=== PATIENT | male | born 1950 | race Caucasian/White ===

== ENCOUNTER 2019-02-18 00:14 | Emergency (ER) | payer BC, MEDICARE ==
[2019-02-18 00:26] VITALS: BP 170/69; PULSE 84
--- NOTE | 2019-02-18 01:09 | EDM.PDOC ---
ED HPI GENERAL MEDICAL PROBLEM - General Chief Complaint: General Stated Complaint: dizziness Time Seen by Provider: 02/18/19 00:26 Source of Information: Reports: Patient, Significant Other History Limitations: Reports: No Limitations - History of Present Illness INITIAL COMMENTS - FREE TEXT/NARRATIVE: Patient presents with what he describes as a swaying feeling. He's had no nausea, fever, injury, vision change, nystagmus, hearing change, ear ringing, chest pain, balance trouble or weakness. Turning his head doesn't trigger or worsen the feeling. This started about 1.5 hours ago (2300), shortly after returning home from a fishing trip to [place]. He spent two days on a fishing boat. The first day the water was very rough and they were out 8 hours. Today they got up at 0200 and spent 10 hours on the boat and then drove back home here to [place]. He has diabetes, CAD and history of A Fib. He takes Xarelto and ASA 81mg daily. - Related Data Allergies Allergy/AdvReac Type Severity Reaction Status Date / Time niacin Allergy Hives Verified 02/18/19 00:26 Home Meds: Home Meds Insulin Glarg,Human.Rec.Analog [Lantus Solostar] 46 units SQ BEDTIME 09/12/14 [ History] metFORMIN [Glucophage] 1,000 mg PO BID 09/12/14 [History] Rivaroxaban [Xarelto] 20 mg PO 1800 tablet 01/27/15 [Rx] Insulin Aspart [NovoLOG] 0 unit SUBCUT QIDACANDBED PRN 08/02/16 [History] Sulfamethoxazole/Trimethoprim [Bactrim 400-80 MG] 1 tab PO DAILY 08/02/16 [ History] Metoprolol Tartrate [Lopressor] 50 mg PO Q12HR 09/18/16 [History] atorvaSTATin [Lipitor] 40 mg PO DAILY 09/19/16 [History] Amitriptyline [Elavil] 25 mg PO BEDTIME 02/18/19 [History] Aspirin [Adult Low Dose Aspirin EC] 81 mg PO DAILY 02/18/19 [History] Finasteride 5 mg PO DAILY 02/18/19 [History] Hydrochlorothiazide 12.5 mg PO DAILY 02/18/19 [History] Lisinopril 5 mg PO DAILY 02/18/19 [History] Nitroglycerin 0.4 mg SL ASDIRECTED PRN 02/18/19 [History] Tamsulosin HCl 0.4 mg PO DAILY 02/18/19 [History] Past Medical History - Past Health History Medical/Surgical History: Denies Medical/Surgical History HEENT History: Reports: Hard of Hearing, Impaired Vision, Other (See Below) Other HEENT History: blind in right eye Cardiovascular History: Reports: Blood Clots/VTE/DVT, Bypass, High Cholesterol, Hypertension, [place] Other Cardiovascular History: CABGx3 on 08-30-16 Gastrointestinal History: Reports: Chronic Diarrhea, Colon Polyp Musculoskeletal History: Reports: Arthritis, Fracture Other Musculoskeletal History: left ankle fracture, right thumb fx, arthritis in knees Neurological History: Reports: Migraines, Neuropathy, Diabetic Endocrine/Metabolic History: Reports: Diabetes, Type II Dermatologic History: Reports: Other (See Below) Other Dermatologic History: 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 - Past Surgical History Cardiovascular Surgical History: Reports: Coronary Artery Bypass, Other (See Below) Other Cardiovascular Surgeries/Procedures: CABG twice GI Surgical History: Reports: Colonoscopy, Hernia, Abdominal Musculoskeletal Surgical History: Reports: None Social & Family History - Family History Family Medical History: Noncontributory Cardiac: Reports: Heart Failure - Caffeine Use Caffeine Use: Reports: Coffee, Tea - Living Situation & Occupation Living situation: Reports: Occupation: Employed ED ROS GENERAL - Review of Systems Review Of Systems: See Below Constitutional: Denies: Fever, Chills, Malaise, Weakness HEENT: Denies: Dental Pain, Ear Discharge, Ear Pain, Hearing Loss, Sinus Problem , Throat Pain, Vision Change Respiratory: Denies: Shortness of Breath, Cough Cardiovascular: Denies: Chest Pain, Lightheadedness, Syncope Endocrine: Reports: No Symptoms GI/Abdominal: Denies: Abdominal Pain, Constipation, Diarrhea, Nausea, Vomiting : Denies: Dysuria, Flank Pain Musculoskeletal: Denies: Neck Pain, Shoulder Pain, Arm Pain, Back Pain, Hand Pain Skin: Denies: Cyanosis, Jaundice, Mottled, Pallor, Diaphoresis Neurological: Denies: Confusion, Dizziness, Headache, Seizure, Syncope, Tingling , Tremors, Trouble Speaking, Difficulty Walking, Weakness, Change in Speech, Gait Disturbance Psychiatric: Denies: Agitation, Anxiety, Confusion ED EXAM, GENERAL - Physical Exam Exam: See Below Exam Limited By: No Limitations General Appearance: Alert, WD/WN, No Apparent Distress Eye Exam: Right Eye: Other (significant chronic visual loss), Bilateral Eye: EOMI, Normal Inspection (full visual jc), PERRL Ears: Normal External Exam, Normal Canal, Hearing Grossly Normal, Normal TMs Nose: Normal Inspection, No Blood Throat/Mouth: Normal Inspection, Normal Lips, Normal Voice, No Airway Compromise Head: Atraumatic, Normocephalic Neck: Normal Inspection, Supple, Non-Tender, Full Range of Motion Respiratory/Chest: No Respiratory Distress, Lungs Clear, Normal Breath Sounds Cardiovascular: Regular Rate, Rhythm (no A Fib now and patient says he only had it briefly without recurrence), No Murmur GI/Abdominal: Normal Bowel Sounds, Soft, Non-Tender, No Organomegaly Back Exam: Normal Inspection, Full Range of Motion. No: CVA Tenderness (L), CVA Tenderness (R) Extremities: Normal Inspection, Normal Range of Motion Neurological: Alert, Oriented, CN II-XII Intact, Normal Cognition, Normal Gait, No Motor/Sensory Deficits, Other (DixHall-Dar[place] test was completely negative; didn't provoke vertigo or nystagmus. Romberg was completely normal also. NIH stroke score is 0.) Psychiatric: Normal Affect, Normal Mood Skin Exam: Warm, Dry, Intact, Normal Color, No Rash Course - Vital Signs Last Recorded V/S: Last Vital Signs Temp 98 F 02/18/19 00:21 Pulse 84 02/18/19 00:21 Resp 20 02/18/19 00:21 BP 170/69 H 02/18/19 00:21 Pulse Ox 96 02/18/19 00:21 - Orders/Labs/Meds Labs: Laboratory Tests 02/18/19 Range/Units 00:41 POC Glucose 250 H (74-106) mg/dl - Re-Assessments/Exams Free Text/Narrative Re-Assessment/Exam: 02/18/19 01:17 Discussed findings and recommendations with patient and his . With the absence of any evidence of stroke or even true vertigo I feel quite confident this is due to the hours on the boat and water the last two days. Probably affected some by the lack of hardly any sleep last night as well. Patient discharged to home in stable condition. Departure - Departure Time of Disposition: 01:09 Disposition: Home, Self-Care 01 Condition: Good Clinical Impression: Motion sickness, initial encounter - Discharge Information Instructions: Motion Sickness, [id number] Additional Instructions: 1. Drink 8 cups of water daily. 2. Try to get caught up on sleep. 3. Follow up tomorrow with your PCP if this persists or worsens. 4. If worsening significantly or any signs of stroke as discussed return for recheck TAMMY.
== END 2019-02-18 01:15 | disposition home or self-care (01) ==
LOC: KA.ED 00:14
DX: T75.3XXA Motion sickness, initial encounter (principal); I10 Essential (primary) hypertension; E11.40 Type 2 diabetes mellitus with diabetic neuropathy, unspecified; M19.90 Unspecified osteoarthritis, unspecified site; I25.2 Old myocardial infarction; I25.10 Atherosclerotic heart disease of native coronary artery without angina pectoris; I48.91 Unspecified atrial fibrillation; Z86.718 Personal history of other venous thrombosis and embolism; Z95.1 Presence of aortocoronary bypass graft; Z79.899 Other long term (current) drug therapy; Z79.4 Long term (current) use of insulin
CPT/HCPCS: 82962; 99284

== ENCOUNTER 2019-04-15 16:00 | Emergency (ER) | payer BC, MEDICARE ==
[2019-04-15] MEDS ORDERED: Aspirin 81 MG Tab.Chew PO ONE (16:31)
[2019-04-15] MEDS ORDERED: Nitroglycerin 0.4 MG Tab.SL SL PRN (16:31)
--- NOTE | 2019-04-15 16:40 | EDM.PDOC ---
ED HPI GENERAL MEDICAL PROBLEM - General Chief Complaint: Chest Pain Time Seen by Provider: 04/15/19 16:23 Source of Information: Reports: Patient History Limitations: Reports: No Limitations - History of Present Illness INITIAL COMMENTS - FREE TEXT/NARRATIVE: Patient presents with mild left chest pressure that started a little bit last night but definitely noticed at 8:00 (8 hours ago) this morning and has been constant through the day. It has been steady through the day with no change related to rest or activity. 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 He had a 3-vessel CABG 2.5 years ago and thinks he had a VT at age 28 when he thinks he remembers feeling something like today. He never was checked at that time but has since been told he had an VT many years ago based on cardiac scar tissue. He had a cardiac stress test 2 weeks ago that was abnormal and he is scheduled to see his set up inspector on 05/05 for further evaluation including a likely angiogram. He has carried nitro for 15 years but has never used it. He went to his clinic about an hour ago to see if he should take his nitro and was told to come to ER. He denies any neck, jaw, arm pain; denies lightheadedness, sweating, nausea. - Related Data Allergies Allergy/AdvReac Type Severity Reaction Status Date / Time niacin Allergy Hives Verified 04/15/19 16:27 Home Meds: Home Meds Insulin Glarg,Human.Rec.Analog [Lantus Solostar] 36 units SQ BEDTIME 09/12/14 [ History] metFORMIN [Glucophage] 1,000 mg PO BID 09/12/14 [History] Rivaroxaban [Xarelto] 20 mg PO 1800 tablet 01/27/15 [Rx] Insulin Aspart [NovoLOG] 0 unit SUBCUT QIDACANDBED PRN 08/02/16 [History] Sulfamethoxazole/Trimethoprim [Bactrim 400-80 MG] 1 tab PO DAILY 08/02/16 [ History] Metoprolol Tartrate [Lopressor] 50 mg PO Q12HR 09/18/16 [History] atorvaSTATin [Lipitor] 40 mg PO DAILY 09/19/16 [History] Amitriptyline [Elavil] 25 mg PO BEDTIME 02/18/19 [History] Aspirin [Adult Low Dose Aspirin EC] 81 mg PO DAILY 02/18/19 [History] Finasteride 5 mg PO DAILY 02/18/19 [History] Hydrochlorothiazide 12.5 mg PO DAILY 02/18/19 [History] Lisinopril 5 mg PO DAILY 02/18/19 [History] Nitroglycerin 0.4 mg SL ASDIRECTED PRN 02/18/19 [History] Tamsulosin HCl 0.4 mg PO DAILY 02/18/19 [History] Past Medical History - Past Health History Medical/Surgical History: Denies Medical/Surgical History HEENT History: Reports: Hard of Hearing, Impaired Vision, Other (See Below) Other HEENT History: blind in right eye Cardiovascular History: Reports: Blood Clots/VTE/DVT, Bypass, High Cholesterol, Hypertension, [place] Other Cardiovascular History: CABGx3 on 08-30-16 Respiratory History: Reports: Sleep Apnea Gastrointestinal History: Reports: Chronic Diarrhea, Colon Polyp Musculoskeletal History: Reports: Arthritis, Fracture Other Musculoskeletal History: left ankle fracture, right thumb fx, arthritis in knees Neurological History: Reports: Migraines, Neuropathy, Diabetic Endocrine/Metabolic History: Reports: Diabetes, Type II, Obesity/BMI 30+ Dermatologic History: Reports: Other (See Below) Other Dermatologic History: 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 - Past Surgical History Cardiovascular Surgical History: Reports: Coronary Artery Bypass, Other (See Below) GI Surgical History: Reports: Colonoscopy, Hernia, Abdominal Musculoskeletal Surgical History: Reports: None Social & Family History - Family History Family Medical History: Noncontributory Cardiac: Reports: Heart Failure - Caffeine Use Caffeine Use: Reports: Coffee, Tea - Living Situation & Occupation Living situation: Reports: Occupation: Employed ED [facility] GENERAL - Review of Systems Review Of Systems: See Below Constitutional: Denies: Fever, Chills, Malaise, Weakness HEENT: Denies: Ear Pain, Throat Pain, Vision Change Respiratory: Reports: Cough (chronic related to his CPAP). Denies: Shortness of Breath Cardiovascular: Reports: Chest Pain ("pressure"), Blood Pressure Problem. Denies: Dyspnea on Exertion, Lightheadedness, Syncope Endocrine: Reports: No Symptoms GI/Abdominal: Denies: Abdominal Pain, Diarrhea, Nausea, Vomiting : Reports: No Symptoms Musculoskeletal: Denies: Neck Pain, Shoulder Pain, Arm Pain, Back Pain, Hand Pain, Leg Pain, Foot Pain Skin: Denies: Cyanosis, Jaundice, Mottled, Pallor, Diaphoresis Neurological: Reports: Tingling (intermittent tingling of upper extremities for months, related to neck problems). Denies: Confusion, Dizziness, Headache, Seizure, Syncope, Trouble Speaking, Difficulty Walking Psychiatric: Denies: Agitation, Anxiety, Confusion ED EXAM, GENERAL - Physical Exam Exam: See Below Exam Limited By: No Limitations General Appearance: Alert, WD/WN, No Apparent Distress Eye Exam: Bilateral Eye: EOMI, Normal Inspection, PERRL Ears: Normal External Exam, Hearing Grossly Normal Nose: Normal Inspection, No Blood Throat/Mouth: Normal Inspection, Normal Lips, Normal Voice, No Airway Compromise Head: Atraumatic, Normocephalic Neck: Normal Inspection, Supple, Non-Tender, Full Range of Motion. No: Carotid Bruit Respiratory/Chest: No Respiratory Distress, Lungs Clear, Normal Breath Sounds, No Accessory Muscle Use Cardiovascular: Normal Peripheral Pulses, Regular Rate, Rhythm, Systolic Murmur Peripheral Pulses: 2+: Carotid (L), Carotid (R), Radial (L), Radial (R), Posterior Tibial (L), Posterior Tibial (R) GI/Abdominal: Normal Bowel Sounds, Soft, Non-Tender, No Organomegaly, No Distention, No Abnormal Bruit Back Exam: Normal Inspection, Full Range of Motion. No: CVA Tenderness (L), CVA Tenderness (R) Extremities: Normal Range of Motion, Non-Tender Neurological: Alert, Oriented, Normal Cognition, No Motor/Sensory Deficits Psychiatric: Normal Affect, Normal Mood Skin Exam: Warm, Dry, Intact, Normal Color, No Rash Course - Vital Signs Last Recorded V/S: Last Vital Signs Temp 97.9 F 04/15/19 16:05 Pulse 96 04/15/19 16:45 Resp 18 04/15/19 16:05 BP 172/77 H 04/15/19 16:45 Pulse Ox 100 04/15/19 16:05 - Orders/Labs/Meds Orders: Active Orders 24 hr Category Date Time Status EKG Documentation Completion [RC] ASDIRECTED Care 04/15/19 16:11 Active CXR [Chest 1V Frontal] [CR] Stat Exams 04/15/19 16:11 Taken Nitroglycerin [Nitrostat] Med 04/15/19 16:31 Ordered 0.4 mg SL Q5M PRN EKG 12 Lead [EK] Routine Ther 04/15/19 16:11 Ordered Medication Orders Nitroglycerin (Nitrostat) 0.4 mg SL Q5M PRN PRN Reason: Chest Pain Last Admin: 04/15/19 16:36 Dose: 0.4 mg Labs: Laboratory Tests 04/15/19 04/15/19 Range/Units 16:20 16:20 WBC 5.50 (5.00-10.00) 10^3/uL RBC 4.35 L (4.50-6.00) 10^6/uL Hgb 13.8 (13.0-17.0) g/dL Hct 39.0 L (40.0-52.0) % MCV 89.7 (82.0-92.0) fL MCH 31.7 H (27.0-31.0) pg MCHC 35.4 (32.0-36.0) g/dL RDW 13.7 (11.5-14.5) % Plt Count 143 L (150-400) 10^3/uL MPV 9.1 (7.4-10.4) fL Immature Gran % (Auto) 0.0 (0.0-5.0) % Neut % (Auto) 61.2 (50.0-70.0) % Lymph % (Auto) 24.9 (20.0-40.0) % Irion % (Auto) 8.9 H (2.0-8.0) % Eos % (Auto) 4.5 H (1.0-3.0) % Baso % (Auto) 0.5 (0.0-1.0) % Immature Gran # (Auto) 0.00 (0.00-0.50) 10^3/uL Neut # (Auto) 3.36 (2.50-7.00) 10^3/uL Lymph # (Auto) 1.37 (1.00-4.00) 10^3/uL Irion # (Auto) 0.49 (0.10-0.80) 10^3/uL Eos # (Auto) 0.25 (0.10-0.30) 10^3/uL Baso # (Auto) 0.03 (0.00-0.10) 10^3/uL Sodium 142 (136-145) mmol/L Potassium 4.6 (3.3-5.3) mmol/L Chloride 104 (98-115) mmol/L Carbon Dioxide 28.8 (21.0-32.0) mmol/L Anion Gap 13.8 (5-15) mmol/L BUN 20 (6-25) mg/dL Creatinine 1.13 (0.51-1.17) mg/dL Est Cr Clr Drug Dosing 68.67 mL/min Estimated GFR (MDRD) > 60 mL/min Glucose 121 H (75 - 99) mg/dL Calcium 9.3 (8.7-10.3) mg/dL Troponin I 0.04 (0.00-0.070) ng/mL Meds: Medications Generic Name Dose Route Start Last Admin Trade Name Freq PRN Reason Stop Dose Admin Nitroglycerin 0.4 mg 04/15/19 16:31 04/15/19 16:36 Nitrostat SL 0.4 mg Q5M PRN Administration Chest Pain Discontinued Medications Generic Name Dose Route Start Last Admin Trade Name Freq PRN Reason Stop Dose Admin Aspirin 324 mg 04/15/19 16:31 04/15/19 16:35 Aspirin PO 04/15/19 16:32 324 mg ONETIME ONE Administration Labetalol HCl 20 mg 04/15/19 17:47 Normodyne IVPUSH 04/15/19 17:48 ONETIME ONE Protocol - Re-Assessments/Exams Free Text/Narrative Re-Assessment/Exam: 04/15/19 16:49 The chest pressure seemed a little better after a few minutes, prior to nitro but resolved completely after a single nitro. ASA 324 given also. 04/15/19 17:37 Trop is 0.04; EKG shows inferior ischemia and (apparently) new incomplete LBBB. Discussed with Aman Mccloud NP who reviewed [facility] chart showing lateral ischemia on the stress test two weeks ago. Patient is still pain/pressure free. Discussed case with Dr. Selby, hospitalist, at [facility] in [place], who accepted for transfer and angiogram now rather than waiting for May 05. Discussed findings and recommendations with patient and his , they are okay with this plan. 04/15/19 18:06 Ambulance here to transport patient who is stable at discharge. BP has responded to Labetalol and is now 183/73. Departure - Departure Time of Disposition: 17:42 Disposition: DC/Tfer to Acute Hospital 02 Reason for Transfer *Q: Primary PCI Indicated Condition: Good Clinical Impression: Unstable angina, History of coronary artery bypass graft x 3 Referrals: Kizzy Sotelo MD [Primary Care Provider] - Forms: ED Department Discharge - My Orders Last 24 Hours: My Active Orders 04/15/19 16:11 EKG Documentation Completion [RC] ASDIRECTED CXR [Chest 1V Frontal] [CR] Stat EKG 12 Lead [EK] Routine 04/15/19 16:31 Nitroglycerin [Nitrostat] 0.4 mg SL Q5M PRN - Assessment/Plan Last 24 Hours: My Active Orders 04/15/19 16:11 EKG Documentation Completion [RC] ASDIRECTED CXR [Chest 1V Frontal] [CR] Stat EKG 12 Lead [EK] Routine 04/15/19 16:31 Nitroglycerin [Nitrostat] 0.4 mg SL Q5M PRN
[2019-04-15 16:56] LABS: ANION GAP 13.8 mmol/L (5-15); CHLORIDE,CL 104 mmol/L (98-115); SODIUM,NA 142 mmol/L (136-145)
[2019-04-15] MEDS ORDERED: Labetalol 100 MG/20 ML MDV IVPUSH ONE (17:47)
[2019-04-15 18:50] VITALS: BP 166/77; PULSE 78
== END 2019-04-15 18:13 ==
LOC: KA.ED 16:00
DX: I20.0 Unstable angina (principal); I10 Essential (primary) hypertension; E78.00 Pure hypercholesterolemia, unspecified; E11.40 Type 2 diabetes mellitus with diabetic neuropathy, unspecified; I25.2 Old myocardial infarction; Z95.1 Presence of aortocoronary bypass graft; Z88.8 Allergy status to other drugs, medicaments and biological substances; Z79.4 Long term (current) use of insulin; Z79.899 Other long term (current) drug therapy; Z79.82 Long term (current) use of aspirin; Z86.718 Personal history of other venous thrombosis and embolism
CPT/HCPCS: 71045; 80048; 84484; 85025; 93005; 96374; 99285; A9270; J3490

== ENCOUNTER 2019-12-23 22:21 | Observation (INO) | payer BC ==
--- NOTE | 2019-12-23 23:02 | EDM.PDOC ---
ED HPI GENERAL MEDICAL PROBLEM - General Chief Complaint: General Stated Complaint: HTN, bradycardia Time Seen by Provider: 12/23/19 22:46 Source of Information: Reports: Patient History Limitations: Reports: No Limitations - History of Present Illness INITIAL COMMENTS - FREE TEXT/NARRATIVE: Patient is a 69-year-old gentleman who presents to the emergency department this evening via private vehicle with a complaint of high blood pressure and low heart rate. Patient states approximately 9 p.m. this evening, he noticed his pulse was in the 40s and took his blood pressure. Blood pressure was found to be high 190s systolic. He became concerned decided to present to the ER. Patient states that he underwent coronary artery bypass graft 3-1/2 years ago, and underwent cardiac stent procedure June 2019. Patient denies chest pain , shortness of breath, nausea, vomiting, diarrhea, fever, out of country travel , upper respiratory symptoms, abdominal pain, excessive lower extremity edema, calf pain, or change in medication. Onset: Today Onset Time: 21:00 Duration: Minutes: Quality: Reports: Other (Denies pain) Severity: Mild Improves with: Reports: None Worsens with: Reports: None Associated Symptoms: Reports: No Other Symptoms. Denies: Chest Pain, Cough, Diaphoresis, Fever/Chills, Headaches, Nausea/Vomiting, Shortness of Breath, Syncope - Related Data Allergies Allergy/AdvReac Type Severity Reaction Status Date / Time niacin Allergy Hives Verified 12/23/19 22:42 Home Meds: Home Meds Insulin Glarg,Human.Rec.Analog [Lantus Solostar] 46 units SQ BEDTIME 09/12/14 [ History] metFORMIN [Glucophage] 1,000 mg PO BID 09/12/14 [History] Rivaroxaban [Xarelto] 20 mg PO 1800 tablet 01/27/15 [Rx] Insulin Aspart [NovoLOG] 0 unit SUBCUT QIDACANDBED PRN 08/02/16 [History] Sulfamethoxazole/Trimethoprim [Bactrim 400-80 MG] 1 tab PO DAILY 08/02/16 [ History] atorvaSTATin [Lipitor] 40 mg PO DAILY 09/19/16 [History] Amitriptyline [Elavil] 25 mg PO BEDTIME 02/18/19 [History] Finasteride 5 mg PO DAILY 02/18/19 [History] Nitroglycerin 0.4 mg SL ASDIRECTED PRN 02/18/19 [History] Tamsulosin HCl 0.4 mg PO DAILY 02/18/19 [History] Acetaminophen 500 mg PO Q4H PRN 04/15/19 [History] Liraglutide [Victoza 3-Juan C] 1.8 mg SUBCUT DAILY 04/15/19 [History] Clindamycin Phosphate [Cleocin T 1% Lotion] 1 applic TOP BID PRN 12/23/19 [ History] Clopidogrel Bisulfate [Clopidogrel] 75 mg PO DAILY 12/23/19 [History] Furosemide 20 mg PO DAILY 12/23/19 [History] Losartan Potassium 100 mg PO DAILY 12/23/19 [History] Potassium Chloride 10 meq PO ASDIRECTED 12/23/19 [History] Vitamin B Complex 1 cap PO DAILY 12/23/19 [History] carvediloL [Carvedilol] 25 mg PO BID 12/23/19 [History] hydroCHLOROthiazide [Hydrochlorothiazide] 25 mg PO DAILY 12/23/19 [History] Past Medical History - Past Health History Medical/Surgical History: Denies Medical/Surgical History HEENT History: Reports: Hard of Hearing, Impaired Vision, Other (See Below) Other HEENT History: blind in right eye Cardiovascular History: Reports: Blood Clots/VTE/DVT, Bypass, High Cholesterol, Hypertension, [place] Other Cardiovascular History: CABGx3 on 08-30-16 Respiratory History: Reports: Sleep Apnea Gastrointestinal History: Reports: Chronic Diarrhea, Colon Polyp Musculoskeletal History: Reports: Arthritis, Fracture Other Musculoskeletal History: left ankle fracture, right thumb fx, arthritis in knees Neurological History: Reports: Migraines, Neuropathy, Diabetic Endocrine/Metabolic History: Reports: Diabetes, Type II, Obesity/BMI 30+ Dermatologic History: Reports: Other (See Below) Other Dermatologic History: 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 - Past Surgical History Cardiovascular Surgical History: Reports: Coronary Artery Bypass, Other (See Below) GI Surgical History: Reports: Colonoscopy, Hernia, Abdominal Musculoskeletal Surgical History: Reports: None Social & Family History - Family History Family Medical History: Noncontributory Cardiac: Reports: Heart Failure - Caffeine Use Caffeine Use: Reports: Coffee, Tea - Living Situation & Occupation Living situation: Reports: Occupation: Employed ED ROS GENERAL - Review of Systems Review Of Systems: Comprehensive ROS is negative, except as noted in HPI. Constitutional: Reports: No Symptoms HEENT: Reports: No Symptoms Respiratory: Reports: No Symptoms Cardiovascular: Reports: Blood Pressure Problem, Other (Slow heart rate) Endocrine: Reports: No Symptoms GI/Abdominal: Reports: No Symptoms : Reports: No Symptoms Musculoskeletal: Reports: No Symptoms Skin: Reports: No Symptoms Neurological: Reports: No Symptoms Psychiatric: Reports: No Symptoms Hematologic/Lymphatic: Reports: No Symptoms Immunologic: Reports: No Symptoms ED EXAM, GENERAL - Physical Exam Exam: See Below Exam Limited By: No Limitations General Appearance: Alert, WD/WN, No Apparent Distress Eye Exam: Bilateral Eye: Normal Inspection Nose: Normal Inspection, No Blood Throat/Mouth: Normal Inspection, Normal Oropharynx, No Airway Compromise Head: Atraumatic, Normocephalic Neck: Normal Inspection Respiratory/Chest: No Respiratory Distress, Lungs Clear, Normal Breath Sounds, No Accessory Muscle Use, Chest Non-Tender Cardiovascular: Normal Peripheral Pulses, Regular Rate, Rhythm, Systolic Murmur GI/Abdominal: Normal Bowel Sounds, Soft, Non-Tender, No Abnormal Bruit Back Exam: Normal Inspection. No: CVA Tenderness (L), CVA Tenderness (R) Extremities: Normal Inspection, Pedal Edema (2+ bilateral), Other (No calf edema , palpable cord, or discomfort) Neurological: Alert, Oriented, CN II-XII Intact, Normal Cognition Psychiatric: Normal Affect, Normal Mood Skin Exam: Warm, Dry, Intact, No Rash EKG INTERPRETATION EKG Date: 12/23/19 Time: 22:50 Rhythm: Other (Second degree AV block) Rate (Beats/Min): 46 [place]: Normal P-Wave: Present QRS: Normal ST-T: Normal QT: Normal Course - Orders/Labs/Meds Orders: Active Orders 24 hr Category Date Time Status EKG Documentation Completion [RC] ASDIRECTED Care 12/23/19 22:52 Ordered Chest 1V Frontal [CR] Stat Exams 12/23/19 22:49 Ordered CBC WITH AUTO DIFF [HEME] Stat Lab 12/23/19 22:49 Ordered COMPREHENSIVE METABOLIC PN,CMP [CHEM] Stat Lab 12/23/19 22:49 Ordered INR,PT,PROTHROMBIN TIME [COAG] Stat Lab 12/23/19 22:49 Ordered PTT,PARTIAL THROMBOPLSTIN TIME [COAG] Stat Lab 12/23/19 22:49 Ordered TROPONIN I [CHEM] Stat Lab 12/23/19 22:49 Ordered EKG 12 Lead [EK] Stat Ther 12/23/19 22:52 Ordered - Re-Assessments/Exams Free Text/Narrative Re-Assessment/Exam: 12/24/19 00:08 Patient afebrile, nontoxic appearing. Heart rate 46, BP 167/49. Patient denies chest pain, shortness of breath. Discussed case with Dr. Butt, cardiology at [facility]. Recommendation was for admitting patient observation because the patient is asymptomatic, and if patient remains asymptomatic would have follow-up electrophysiology testing. If patient becomes symptomatic, then it may be need for transfer at that time. Also discussed case with Daina dillard, [place] provider. She will accept patient for observation and follow. Departure - Departure Time of Disposition: 00:12 Disposition: Refer to Observation Condition: Fair Clinical Impression: Bradycardia, Second degree AV block - Discharge Information Referrals: Kizzy Sotelo MD [Primary Care Provider] - - My Orders Last 24 Hours: My Active Orders 12/23/19 22:49 Chest 1V Frontal [CR] Stat CBC WITH AUTO DIFF [HEME] Stat COMPREHENSIVE METABOLIC PN,CMP [CHEM] Stat INR,PT,PROTHROMBIN TIME [COAG] Stat PTT,PARTIAL THROMBOPLSTIN TIME [COAG] Stat TROPONIN I [CHEM] Stat 12/23/19 22:52 EKG Documentation Completion [RC] ASDIRECTED EKG 12 Lead [EK] Stat - Assessment/Plan Last 24 Hours: My Active Orders 12/23/19 22:49 Chest 1V Frontal [CR] Stat CBC WITH AUTO DIFF [HEME] Stat COMPREHENSIVE METABOLIC PN,CMP [CHEM] Stat INR,PT,PROTHROMBIN TIME [COAG] Stat PTT,PARTIAL THROMBOPLSTIN TIME [COAG] Stat TROPONIN I [CHEM] Stat 12/23/19 22:52 EKG Documentation Completion [RC] ASDIRECTED EKG 12 Lead [EK] Stat Assessment:: Bradycardia Plan: Admitted for observation
[2019-12-23 23:18] LABS: PTT,PARTIAL THROMBOPLSTIN TIME 31.6 SEC (23.1-31.3)
[2019-12-23 23:25] LABS: ANION GAP 14.2 mmol/L (5-15)
[2019-12-24] MEDS ORDERED: Atropine 0.1 MG/ML 10 ML Syringe IVPUSH PRN (00:30)
[2019-12-24] MEDS ORDERED: Nitroglycerin 0.4 MG Tab.SL SL PRN (00:30)
[2019-12-24] MEDS ORDERED: EPINEPHrine 1:10,000 1 MG/10 ML Syringe IVPUSH PRN (00:30)
[2019-12-24] MEDS ORDERED: Lidocaine 2% 100 MG/5 ML Syringe IVPUSH PRN (00:30)
--- NOTE | 2019-12-24 07:28 | CR ---
[id number] RAD/RAD Chest PA or AP 1V EXAM: SINGLE VIEW CHEST. INDICATION: HYPERTENSION COMPARISON: CORRELATION IS MADE WITH 2018 FINDINGS: The lungs are clear The cardiomediastinal contour is stable Median sternotomy sutures are seen IMPRESSION: NO PNEUMONIA OR EDEMA Sixto Mansfield MD 12/24/19 0789 Thank you for allowing us to participate in the care of your patient.
[2019-12-24] MEDS ORDERED: Finasteride 5 MG Tab PO SCH (11:15)
[2019-12-24] MEDS ORDERED: Furosemide 20 MG Tab PO SCH (11:15)
[2019-12-24 11:25] VITALS: BP 165/60; PULSE 40
[2019-12-24] MEDS ORDERED: Clopidogrel 75 MG Tab - PTOM PO SCH (11:30)
--- NOTE | 2019-12-24 11:38 | PCM.HP.2 ---
H&P History of Present Illness - General Date of Service: 12/24/19 Admit Problem/Dx: Admission Diagnosis/Problem Admission Diagnosis/Problem Bradycardia - Related Data Allergies/Adverse Reactions: Allergies Allergy/AdvReac Type Severity Reaction Status Date / Time niacin Allergy Hives Verified 12/23/19 22:42 Home Medications: Home Meds Insulin Glarg,Human.Rec.Analog [Lantus Solostar] 46 units SQ BEDTIME 09/12/14 [ History] metFORMIN [Glucophage] 1,000 mg PO BID 09/12/14 [History] Insulin Aspart [NovoLOG] 0 unit SUBCUT QIDACANDBED PRN 08/02/16 [History] atorvaSTATin [Lipitor] 80 mg PO DAILY 09/19/16 [History] Amitriptyline [Elavil] 25 mg PO BEDTIME 02/18/19 [History] Finasteride 5 mg PO DAILY 02/18/19 [History] Nitroglycerin 0.4 mg SL ASDIRECTED PRN 02/18/19 [History] Tamsulosin HCl 0.4 mg PO DAILY 02/18/19 [History] Acetaminophen 500 mg PO Q4H PRN 04/15/19 [History] Liraglutide [Victoza] 1.8 mg SUBCUT DAILY 04/15/19 [History] Clindamycin Phosphate [Cleocin T 1% Lotion] 1 applic TOP BID PRN 12/23/19 [ History] Clopidogrel Bisulfate [Clopidogrel] 75 mg PO DAILY 12/23/19 [History] Furosemide 20 mg PO DAILY 12/23/19 [History] Losartan Potassium 100 mg PO DAILY 12/23/19 [History] Potassium Chloride 10 meq PO ASDIRECTED 12/23/19 [History] Vitamin B Complex 1 cap PO DAILY 12/23/19 [History] hydroCHLOROthiazide [Hydrochlorothiazide] 25 mg PO DAILY 12/23/19 [History] Rivaroxaban [Xarelto] 20 mg PO DAILY 12/24/19 [History] Sulfamethoxazole/Trimethoprim [Bactrim Ds Tablet] 1 tab PO DAILY 12/24/19 [ History] Urea/Hydrophilic Cream [Betamide] 1 applic TOP BID PRN 12/24/19 [History] carvediloL [Carvedilol] 12.5 mg PO BID #1 12/24/19 [Rx] Past Medical History - Past Health History Medical/Surgical History: Denies Medical/Surgical History HEENT History: Reports: Hard of Hearing, Impaired Vision, Other (See Below) Other HEENT History: blind in right eye Cardiovascular History: Reports: Blood Clots/VTE/DVT, Bypass, High Cholesterol, Hypertension, [place], Stents Other Cardiovascular History: CABGx3 on 08-30-16. stents placed April 2019 Respiratory History: Reports: Sleep Apnea Other Respiratory History: uses CPAP Gastrointestinal History: Reports: Chronic Diarrhea, Colon Polyp Musculoskeletal History: Reports: Arthritis, Fracture Other Musculoskeletal History: left ankle fracture, right thumb fx, arthritis in knees Neurological History: Reports: Migraines, Neuropathy, Diabetic Other Neuro History: 12-23-19: states has a headache every day since March 2019 , PCP aware Endocrine/Metabolic History: Reports: Diabetes, Type II, Obesity/BMI 30+ Dermatologic History: Reports: Other (See Below) Other Dermatologic History: 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 - Past Surgical History Cardiovascular Surgical History: Reports: Coronary Artery Bypass, Other (See Below) GI Surgical History: Reports: Colonoscopy, Hernia, Abdominal Musculoskeletal Surgical History: Reports: None Social & Family History - Family History Family Medical History: Noncontributory Cardiac: Reports: Heart Failure - Tobacco Use Smoking Status *Q: Never Smoker - Caffeine Use Caffeine Use: Reports: Coffee, Tea Other Caffeine Use: diet soda - Alcohol Use Days Per Week of Alcohol Use: 0 - Recreational Drug Use Recreational Drug Use: No - Living Situation & Occupation Living situation: Reports: Occupation: Employed H&P Review of Systems - Review of Systems: Review Of Systems: See Below General: Reports: No Symptoms HEENT: Reports: No Symptoms Pulmonary: Denies: Shortness of Breath, Wheezing, Pleuritic Chest Pain, Cough, Sputum Cardiovascular: Reports: No Symptoms Gastrointestinal: Reports: No Symptoms Genitourinary: Reports: No Symptoms Musculoskeletal: Reports: No Symptoms Skin: Reports: Dryness Psychiatric: Denies: Agitation Neurological: Reports: No Symptoms Hematologic/Lymphatic: Reports: Easy Bleeding, Easy Bruising Exam - Exam Exam: See Below - Vital Signs Vital Signs: Last Vital Signs Temp 98.2 F 12/24/19 11:00 Pulse 40 L 12/24/19 11:00 Resp 24 H 12/24/19 11:00 BP 165/60 H 12/24/19 11:00 Pulse Ox 97 12/24/19 11:00 Weight: 291 lb 4 oz - Exam Quality Assessment: DVT Prophylaxis. No: Supplemental Oxygen General: Alert, Oriented, 4 HEENT: PERRLA, Hearing Intact, Mucosa Moist & [place], Nares Patent, Normal Nasal Septum, Posterior Pharynx Clear, Conjunctiva Clear, EOMI, EACs Clear, TMs Clear Neck: Supple, Trachea Midline, 2 Lungs: Clear to Auscultation, Normal Respiratory Effort Cardiovascular: Regular Rhythm, Normal S1, Normal S2, Bradycardia. No: Irregular Rhythm, Systolic Murmur, Diastolic Murmur GI/Abdominal Exam: Other (abdominal habitus--large) (Male) Exam: Deferred Rectal (Males) Exam: Deferred Back Exam: No: CVA Tenderness (L), CVA Tenderness (R) Extremities: No: Pedal Edema Skin: Other ([place] lower extremities dryness) Neurological: Cranial Nerves Intact, Reflexes Equal Bilateral Neuro Extensive - Mental Status: Alert, Oriented x3, Normal Mood/Affect, Normal Cognition Neuro Extensive - Motor, Sensory, Reflexes: CN II-XII Intact, Normal Gait, Normal Reflexes Psychiatric: Alert, Normal Affect. No: Anxious - Patient Data Lab Results Last 24 hrs: Laboratory Results - last 24 hr 12/23/19 12/23/19 12/23/19 Range/Units 22:50 22:50 22:50 WBC 6.36 (5.00-10.00) 10^3/uL RBC 3.78 L (4.50-6.00) 10^6/uL Hgb 12.0 L D (13.0-17.0) g/dL Hct 34.5 L (40.0-52.0) % MCV 91.3 (82.0-92.0) fL MCH 31.7 H (27.0-31.0) pg MCHC 34.8 (32.0-36.0) g/dL RDW 13.4 (11.5-14.5) % Plt Count 155 (150-400) 10^3/uL MPV 9.3 (7.4-10.4) fL Immature Gran % (Auto) 0.2 (0.0-5.0) % Neut % (Auto) 57.7 (50.0-70.0) % Lymph % (Auto) 27.4 (20.0-40.0) % [place] % (Auto) 9.6 H (2.0-8.0) % Eos % (Auto) 4.2 H (1.0-3.0) % Baso % (Auto) 0.9 (0.0-1.0) % Neut # (Auto) 3.67 (2.50-7.00) 10^3/uL Lymph # (Auto) 1.74 (1.00-4.00) 10^3/uL Wilson # (Auto) 0.61 (0.10-0.80) 10^3/uL Eos # (Auto) 0.27 (0.10-0.30) 10^3/uL Baso # (Auto) 0.06 (0.00-0.10) 10^3/uL Immature Gran # (Auto) 0.01 (0.00-0.50) 10^3/uL PT 10.6 (8.9-11.4) SEC INR 1.0 (0.9-1.1) APTT 31.6 H (23.1-31.3) SEC Sodium 142 (136-145) mmol/L Potassium 4.1 (3.3-5.3) mmol/L Chloride 107 (98-115) mmol/L Carbon Dioxide 24.9 (21.0-32.0) mmol/L Anion Gap 14.2 (5-15) mmol/L BUN 30 H (6-25) mg/dL Creatinine 1.44 H (0.51-1.17) mg/dL Est Cr Clr Drug Dosing 56.29 mL/min Estimated GFR (MDRD) 49 mL/min Glucose 203 H (75 - 99) mg/dL POC Glucose (74-106) mg/dl Calcium 9.1 (8.7-10.3) mg/dL Total Bilirubin 0.4 (0.2-1.0) mg/dL AST 17 (15-37) U/L ALT 29 (12-78) U/L Alkaline Phosphatase 70 (46-116) IU/L Troponin I 0.06 (0.00-0.070) ng/mL B-Natriuretic Peptide (0-100) pg/mL Total Protein 6.8 (6.4-8.2) g/dL Albumin 3.44 (3.00-4.80) g/dL 12/23/19 12/24/19 Range/Units 22:55 08:09 WBC (5.00-10.00) 10^3/uL RBC (4.50-6.00) 10^6/uL Hgb (13.0-17.0) g/dL Hct (40.0-52.0) % MCV (82.0-92.0) fL MCH (27.0-31.0) pg MCHC (32.0-36.0) g/dL RDW (11.5-14.5) % Plt Count (150-400) 10^3/uL MPV (7.4-10.4) fL Immature Gran % (Auto) (0.0-5.0) % Neut % (Auto) (50.0-70.0) % Lymph % (Auto) (20.0-40.0) % [place] % (Auto) (2.0-8.0) % Eos % (Auto) (1.0-3.0) % Baso % (Auto) (0.0-1.0) % Neut # (Auto) (2.50-7.00) 10^3/uL Lymph # (Auto) (1.00-4.00) 10^3/uL Wilson # (Auto) (0.10-0.80) 10^3/uL Eos # (Auto) (0.10-0.30) 10^3/uL Baso # (Auto) (0.00-0.10) 10^3/uL Immature Gran # (Auto) (0.00-0.50) 10^3/uL PT (8.9-11.4) SEC INR (0.9-1.1) APTT (23.1-31.3) SEC Sodium (136-145) mmol/L Potassium (3.3-5.3) mmol/L Chloride (98-115) mmol/L Carbon Dioxide (21.0-32.0) mmol/L Anion Gap (5-15) mmol/L BUN (6-25) mg/dL Creatinine (0.51-1.17) mg/dL Est Cr Clr Drug Dosing mL/min Estimated GFR (MDRD) mL/min Glucose (75 - 99) mg/dL POC Glucose 180 H (74-106) mg/dl Calcium (8.7-10.3) mg/dL Total Bilirubin (0.2-1.0) mg/dL AST (15-37) U/L ALT (12-78) U/L Alkaline Phosphatase (46-116) IU/L Troponin I (0.00-0.070) ng/mL B-Natriuretic Peptide 206 H (0-100) pg/mL Total Protein (6.4-8.2) g/dL Albumin (3.00-4.80) g/dL Result Diagrams: 12/23/19 22:50 12/23/19 22:50 Sepsis Event Note - Evaluation Sepsis Screening Result: No Definite Risk - Focused Exam Vital Signs: Vital Signs Temp Pulse Pulse Resp BP BP Pulse Ox 12/24/19 11:00 98.2 F 40 L 24 H 165/60 H 97 12/24/19 06:54 98.2 F 41 L 16 177/62 H 96 12/24/19 03:05 97.9 F 41 L 16 156/55 H 95 12/24/19 00:20 98.2 F 43 L 20 158/60 H 97 12/24/19 00:15 44 L 19 170/43 H 96 12/24/19 00:13 12/24/19 00:00 98.6 F 62 23 H 167/44 H 95 12/23/19 23:45 44 L 21 H 157/42 H 94 L Pulse Ox 12/24/19 11:00 12/24/19 06:54 12/24/19 03:05 12/24/19 00:20 12/24/19 00:15 12/24/19 00:13 97 12/24/19 00:00 12/23/19 23:45 Date Exam was Performed: 12/24/19 Time Exam was Performed: 11:56 Problem List Initiated/Reviewed/Updated: Yes Orders Last 24hrs: Active Orders 24 hr Category Date Time Status Patient Status [ADT] Routine ADT 12/24/19 00:13 Active Blood Glucose Check, Bedside [RC] QIDACANDBED Care 12/24/19 07:30 Active EKG Documentation Completion [RC] ASDIRECTED Care 12/23/19 22:52 Active Oxygen Therapy [RC] PRN Care 12/24/19 00:13 Active Ready for Discharge [RC] PER UNIT ROUTINE Care 12/24/19 11:31 Active VTE/DVT Education [RC] PER UNIT ROUTINE Care 12/24/19 00:13 Active Vital Signs [RC] 0300,0700,1100,1500,1900,2300 Care 12/24/19 00:13 Active ADA Diabetic [[place] [employer] Diet] [DIET Diet 12/24/19 Lunch Active ] Heart Healthy Diet [DIET] Diet 12/24/19 Breakfast Active Amitriptyline [Elavil] Med 12/24/19 21:00 Ordered 25 mg PO BEDTIME Atropine [Atropine 0.1 MG/ML] Med 12/24/19 00:30 Active See Dose Instructions IVPUSH ASDIRECTED PRN Clopidogrel [Plavix] Med 12/24/19 11:30 Active 75 mg PO DAILY EPINEPHrine [EPINEPHrine 1:10,000] Med 12/24/19 00:30 Active 1 mg IVPUSH ASDIRECTED PRN Finasteride [Proscar] Med 12/24/19 11:15 Ordered 5 mg PO DAILY Furosemide [Lasix] Med 12/24/19 11:15 Ordered 20 mg PO DAILY Lidocaine 2% [Xylocaine 2%] Med 12/24/19 00:30 Active See Dose Instructions IVPUSH ASDIRECTED PRN Nitroglycerin [Nitrostat] Med 12/24/19 00:30 Active 0.4 mg SL ASDIRECTED PRN atorvaSTATin [Lipitor] Med 12/25/19 09:00 Ordered 80 mg PO DAILY Resuscitation Status Routine Resus Stat 12/24/19 00:13 Ordered Rhythm Strip [CV] Routine Ther 12/24/19 11:00 Ordered Medication Orders Amitriptyline HCl (Elavil) 25 mg PO BEDTIME SILVIA Atorvastatin Calcium (Lipitor) 80 mg PO DAILY SILVIA Atropine Sulfate (Atropine 0.1 Mg/Ml) 0 mg IVPUSH ASDIRECTED PRN PRN Reason: Heart. Clopidogrel Bisulfate (Plavix) 75 mg PO DAILY SILVIA Epinephrine HCl (Epinephrine 1:10,000) 1 mg IVPUSH ASDIRECTED PRN PRN Reason: Heart. Finasteride (Proscar) 5 mg PO DAILY SILVIA Furosemide (Lasix) 20 mg PO DAILY SILVIA Lidocaine HCl (Xylocaine 2%) 0 mg IVPUSH ASDIRECTED PRN PRN Reason: Heart. Nitroglycerin (Nitrostat) 0.4 mg SL ASDIRECTED PRN PRN Reason: Heart. Assessment/Plan Comment:: Please use this as a combined history and physical and discharge summary as patient was discharged on September 25 same day I saw the patient. History of present illness 69-year-old gentleman who presents to the emergency department this evening via private vehicle with a complaint of high blood pressure and low heart rate. Patient states approximately 9 p.m. this evening, he noticed his pulse was in the 40s and took his blood pressure. Blood pressure was found to be high 190s systolic. He became concerned decided to present to the ER. Patient states that he underwent coronary artery bypass graft 3-1/2 years ago, and underwent cardiac stent procedure June 2019. Patient denies chest pain, shortness of breath, nausea, vomiting, diarrhea, fever, out of country travel, upper respiratory symptoms, abdominal pain, excessive lower extremity edema, calf pain , or change in medication. ED work-up/findings EKG sinus rhythm with second-degree AV block, cannot rule out anterior infarct age undetermined (I review independently --doubtful second-degree block Hospital course Quite uneventful other than sinus bradycardia 25 during the middle night, awoken by nurses patient completely asymptomatic with good blood pressures. No chest pain no shortness of breath no dizziness on ambulation. 30-sec bedside rhythm strip/EKG performed to discharge and I did not see evidence of second- degree heart block. Rate 45-48 Medication changes/adjustments upon discharge Reduce Coreg by 50% to 12.5 mg p.o. twice daily Continue on all other medications Discharge instructions --I reduced your blood pressure medicine Coreg to 12-1/2 mg twice a day --Monitor your heart rate and if low AND you become dizzy or chest pain or any symptoms notify the hospital --I will see you in the clinic next week. --Important that you wear your CPAP all the time as this could have caused your heart rate to go so low in the middle of the night Recommendations on follow-up --We will need Edwin stress test --Consider non rate-lowering medication --EP referral - Mortality Measure Prognosis:: Good
[2019-12-24] MEDS ORDERED: Amitriptyline 25 MG Tab PO SCH (21:00)
[2019-12-25] MEDS ORDERED: atorvaSTATin 40 MG Tab PO SCH (09:00)
== END 2019-12-24 12:30 | disposition home or self-care (01) ==
LOC: KA.ED 22:21 → KA.MS 12-24 00:13 → UNDOADMOB 12-24 00:56
PROVIDERS: ADMIT Physician Assistant Surgical; ATTEND Physician Assistant Medical
DX: R00.1 Bradycardia, unspecified (principal); E78.00 Pure hypercholesterolemia, unspecified; I10 Essential (primary) hypertension; E11.40 Type 2 diabetes mellitus with diabetic neuropathy, unspecified; E66.9 Obesity, unspecified; Z79.4 Long term (current) use of insulin; Z91.048 Other nonmedicinal substance allergy status; Z68.36 Body mass index [BMI] 36.0-36.9, adult; Z79.899 Other long term (current) drug therapy
CPT/HCPCS: 36415; 71045; 80053; 82962; 83880; 84484; 85025; 85610; 85730; 93005; 93041; 99285-25; G0378

== ENCOUNTER 2020-11-08 11:00 | Observation (INO) | payer BC ==
[2020-11-08] MEDS ORDERED: Atropine 0.1 MG/ML 10 ML Syringe IVPUSH PRN (11:21)
[2020-11-08] MEDS ORDERED: EPINEPHrine 1:10,000 1 MG/10 ML Syringe IVPUSH PRN (11:21)
[2020-11-08] MEDS ORDERED: Nitroglycerin 0.4 MG Tab.SL SL PRN ×2 (11:21→14:40)
[2020-11-08] MEDS ORDERED: Lidocaine 2% 100 MG/5 ML Syringe IVPUSH PRN (11:21)
[2020-11-08] MEDS ORDERED: Sodium Chloride 0.9% 10 ML Syringe FLUSH PRN (11:25)
[2020-11-08] MEDS ORDERED: Sodium Chloride 0.9% 1,000 ML IV ONE (11:39)
[2020-11-08] MEDS ORDERED: Sodium Chloride 0.9% 500 ML IV SCH (11:45)
--- NOTE | 2020-11-08 13:54 | CR ---
[id number] RAD/RAD Chest PA or AP 1V EXAM: SINGLE VIEW CHEST. INDICATION: SHORTNESS OF BREATH COMPARISON: CORRELATION IS MADE WITH DECEMBER 24, 2019 FINDINGS: The lungs are clear The cardiomediastinal contour is stable IMPRESSION: NO PNEUMONIA OR EDEMA Sixto Mansfield MD 11/08/20 4940 Thank you for allowing us to participate in the care of your patient.
[2020-11-08] MEDS ORDERED: Acetaminophen 500 MG Tab PO PRN (14:40)
[2020-11-08] MEDS ORDERED: 50% Dextrose in Water 50 ML Syringe IV PRN ×2 (14:44→20:07)
[2020-11-08] MEDS ORDERED: Glucagon,Human Recombinant 1 MG Vial IM PRN ×2 (14:44→20:07)
[2020-11-08] MEDS: Carvedilol 12.5 MG Tab PO SCH (18:00)
[2020-11-08] MEDS: Omeprazole 20 MG Cap.CR PO SCH (18:00)
[2020-11-08] MEDS: INSULIN ASPART 100 UNIT/ML SUBCUT SCH ×2 (18:08→21:13)
[2020-11-08] MEDS: Sodium Chloride 0.9% 1,000 ML IV SCH (21:09)
[2020-11-08] MEDS: Amitriptyline 25 MG Tab PO SCH (21:09)
[2020-11-08] MEDS: [UNRECOGNIZED DRUG - OTHER] SUBCUT SCH (21:16)
[2020-11-09] MEDS: Sodium Chloride 0.9% 1,000 ML IV SCH ×2 (07:08→20:49)
[2020-11-09] MEDS: Omeprazole 20 MG Cap.CR PO SCH ×2 (07:33→17:37)
[2020-11-09 07:56] LABS: ANION GAP 14.4 mmol/L (5-15)
[2020-11-09] MEDS: atorvaSTATin 80 MG Tab PO SCH (08:14)
[2020-11-09] MEDS: Sulfamethoxazole/Trimethoprim 800-160 MG Tab PO SCH (08:15)
[2020-11-09] MEDS: Finasteride 5 MG Tab PO SCH (08:15)
[2020-11-09] MEDS: Vitamin B Complex Tab PO SCH (08:15)
[2020-11-09] MEDS: Carvedilol 12.5 MG Tab PO SCH ×2 (08:16→18:04)
[2020-11-09] MEDS: Liraglutide (rDNA Origin) 0.6 MG/0.1 ML 3 ML Pen SUBCUT SCH (08:17)
[2020-11-09] MEDS: INSULIN ASPART 100 UNIT/ML SUBCUT SCH ×2 (08:19→12:04)
[2020-11-09] MEDS ORDERED: Insulin Glargine,Human Rec. Analog 100 Units/ML 3 ML Pen SUBCUT SCH (09:00)
[2020-11-09] MEDS ORDERED: Sodium Chloride 0.9% 100 ML IV SCH (11:30)
[2020-11-09] MEDS ORDERED: Glucagon,Human Recombinant 1 MG Vial IM PRN (12:12)
[2020-11-09] MEDS ORDERED: 50% Dextrose in Water 50 ML Syringe IV PRN (12:12)
--- NOTE | 2020-11-09 12:29 | PCM.PN ---
- General Info Date of Service: 11/09/20 Subjective Update: Patient states he just does not feel right, he feels like he is in a fog of some sort Functional Status: Reports: Pain Controlled, Tolerating Diet. Denies: New Symptoms - Review of Systems General: Denies: Fever, Weakness, Fatigue, Malaise, Chills Pulmonary: Denies: Shortness of Breath, Pleuritic Chest Pain, Cough, Sputum, Wheezing Cardiovascular: Reports: Lightheadedness. Denies: Chest Pain, Palpitations, Dyspnea on Exertion, Orthopnea, PND, Edema Gastrointestinal: Reports: No Symptoms Genitourinary: Reports: No Symptoms Musculoskeletal: Reports: No Symptoms Skin: Reports: No Symptoms Neurological: Reports: Other (Slightly unsteady on his feet). Denies: Confusion Psychiatric: Denies: Confusion - Patient Data Vitals - Most Recent: Last Vital Signs Temp 97.2 F 11/09/20 11:00 Pulse 81 11/09/20 11:00 Resp 16 11/09/20 11:00 BP 156/63 H 11/09/20 11:00 Pulse Ox 96 11/09/20 11:00 Orthostatic Blood Pressure [ 117/46 Standing] Orthostatic Blood Pressure [ 107/48 Sitting] Orthostatic Blood Pressure [ 117/51 Supine] Weight - Most Recent: 283 lb 8 oz I&O - Last 24 Hours: Intake & Output 11/08/20 11/09/20 11/09/20 22:59 06:59 14:59 Intake Total 1690 1202 574 Output Total 700 Balance 1690 502 574 Lab Results Last 24 Hours: Laboratory Results - last 24 hr 11/08/20 11/08/20 11/08/20 Range/Units 11:55 12:27 16:00 WBC (5.00-10.00) 10^3/uL RBC (4.50-6.00) 10^6/uL Hgb (13.0-17.0) g/dL Hct (40.0-52.0) % MCV (82.0-92.0) fL MCH (27.0-31.0) pg MCHC (32.0-36.0) g/dL RDW (11.5-14.5) % Plt Count (150-400) 10^3/uL MPV (7.4-10.4) fL Immature Gran % (Auto) (0.0-5.0) % Neut % (Auto) (50.0-70.0) % Lymph % (Auto) (20.0-40.0) % Miller % (Auto) (2.0-8.0) % Eos % (Auto) (1.0-3.0) % Baso % (Auto) (0.0-1.0) % Neut # (Auto) (2.50-7.00) 10^3/uL Lymph # (Auto) (1.00-4.00) 10^3/uL Miller # (Auto) (0.10-0.80) 10^3/uL Eos # (Auto) (0.10-0.30) 10^3/uL Baso # (Auto) (0.00-0.10) 10^3/uL Immature Gran # (Auto) (0.00-0.50) 10^3/uL Sodium (136-145) mmol/L Potassium (3.5-5.1) mmol/L Chloride (98-107) mmol/L Carbon Dioxide (21.0-32.0) mmol/L Anion Gap (5-15) mmol/L BUN (7-18) mg/dL Creatinine (0.51-1.17) mg/dL Est Cr Clr Drug Dosing mL/min Estimated GFR (MDRD) mL/min Glucose (70-140) mg/dL POC Glucose 138 H (74-106) mg/dl Calcium (8.7-10.3) mg/dL Troponin I 0.030 (0.000-0.056) ng/mL B-Natriuretic Peptide 43 (0-100) pg/mL Specimen Type Urinvoid Urine Color Dark yellow H (YELLOW) Urine Appearance Clear (CLEAR) Urine pH 5.0 (5.0-9.0) Ur Specific [place] 1.025 (1.005-1.030) Urine Protein 30 H (NEGATIVE) mg/dL Urine Glucose (UA) Negative (NEGATIVE) mg/dL Urine Ketones Negative (NEGATIVE) mg/dL Urine Occult Blood Negative (NEGATIVE) Urine Nitrite Negative (NEGATIVE) Urine Bilirubin Small H (NEGATIVE) Urine Urobilinogen 0.2 (0.2-1.0) E.U./dL Ur Leukocyte Esterase Negative (NEGATIVE) U Hyaline Cast (Auto) Moderate Urine RBC 0-5 (0-5) /HPF Urine WBC 10-20 H (0-5) /HPF Ur Epithelial Cells Few /LPF Urine Bacteria Moderate H (NONE TO FEW) /HPF 11/08/20 11/08/20 11/09/20 Range/Units 17:22 21:13 07:25 WBC 4.26 L (5.00-10.00) 10^3/uL RBC 3.10 L (4.50-6.00) 10^6/uL Hgb 8.3 L D (13.0-17.0) g/dL Hct 26.6 L (40.0-52.0) % MCV 85.8 D (82.0-92.0) fL MCH 26.8 L (27.0-31.0) pg MCHC 31.2 L (32.0-36.0) g/dL RDW 15.7 H (11.5-14.5) % Plt Count 95 L (150-400) 10^3/uL MPV 9.6 (7.4-10.4) fL Immature Gran % (Auto) 0.0 (0.0-5.0) % Neut % (Auto) 60.2 (50.0-70.0) % Lymph % (Auto) 27.5 (20.0-40.0) % Miller % (Auto) 8.7 H (2.0-8.0) % Eos % (Auto) 3.1 H (1.0-3.0) % Baso % (Auto) 0.5 (0.0-1.0) % Neut # (Auto) 2.57 (2.50-7.00) 10^3/uL Lymph # (Auto) 1.17 (1.00-4.00) 10^3/uL Miller # (Auto) 0.37 (0.10-0.80) 10^3/uL Eos # (Auto) 0.13 (0.10-0.30) 10^3/uL Baso # (Auto) 0.02 (0.00-0.10) 10^3/uL Immature Gran # (Auto) 0.00 (0.00-0.50) 10^3/uL Sodium (136-145) mmol/L Potassium (3.5-5.1) mmol/L Chloride (98-107) mmol/L Carbon Dioxide (21.0-32.0) mmol/L Anion Gap (5-15) mmol/L BUN (7-18) mg/dL Creatinine (0.51-1.17) mg/dL Est Cr Clr Drug Dosing mL/min Estimated GFR (MDRD) mL/min Glucose (70-140) mg/dL POC Glucose 152 H 172 H (74-106) mg/dl Calcium (8.7-10.3) mg/dL Troponin I (0.000-0.056) ng/mL B-Natriuretic Peptide (0-100) pg/mL Specimen Type Urine Color (YELLOW) Urine Appearance (CLEAR) Urine pH (5.0-9.0) Ur Specific [place] (1.005-1.030) Urine Protein (NEGATIVE) mg/dL Urine Glucose (UA) (NEGATIVE) mg/dL Urine Ketones (NEGATIVE) mg/dL Urine Occult Blood (NEGATIVE) Urine Nitrite (NEGATIVE) Urine Bilirubin (NEGATIVE) Urine Urobilinogen (0.2-1.0) E.U./dL Ur Leukocyte Esterase (NEGATIVE) U Hyaline Cast (Auto) Urine RBC (0-5) /HPF Urine WBC (0-5) /HPF Ur Epithelial Cells /LPF Urine Bacteria (NONE TO FEW) /HPF 11/09/20 11/09/20 11/09/20 Range/Units 07:25 07:26 11:39 WBC (5.00-10.00) 10^3/uL RBC (4.50-6.00) 10^6/uL Hgb (13.0-17.0) g/dL Hct (40.0-52.0) % MCV (82.0-92.0) fL MCH (27.0-31.0) pg MCHC (32.0-36.0) g/dL RDW (11.5-14.5) % Plt Count (150-400) 10^3/uL MPV (7.4-10.4) fL Immature Gran % (Auto) (0.0-5.0) % Neut % (Auto) (50.0-70.0) % Lymph % (Auto) (20.0-40.0) % Miller % (Auto) (2.0-8.0) % Eos % (Auto) (1.0-3.0) % Baso % (Auto) (0.0-1.0) % Neut # (Auto) (2.50-7.00) 10^3/uL Lymph # (Auto) (1.00-4.00) 10^3/uL Miller # (Auto) (0.10-0.80) 10^3/uL Eos # (Auto) (0.10-0.30) 10^3/uL Baso # (Auto) (0.00-0.10) 10^3/uL Immature Gran # (Auto) (0.00-0.50) 10^3/uL Sodium 142 (136-145) mmol/L Potassium 4.4 (3.5-5.1) mmol/L Chloride 106 (98-107) mmol/L Carbon Dioxide 26.0 (21.0-32.0) mmol/L Anion Gap 14.4 (5-15) mmol/L BUN 27 H (7-18) mg/dL Creatinine 1.52 H (0.51-1.17) mg/dL Est Cr Clr Drug Dosing 52.58 mL/min Estimated GFR (MDRD) 46 mL/min Glucose 124 (70-140) mg/dL POC Glucose 122 H 213 H (74-106) mg/dl Calcium 8.4 L (8.7-10.3) mg/dL Troponin I (0.000-0.056) ng/mL B-Natriuretic Peptide (0-100) pg/mL Specimen Type Urine Color (YELLOW) Urine Appearance (CLEAR) Urine pH (5.0-9.0) Ur Specific [place] (1.005-1.030) Urine Protein (NEGATIVE) mg/dL Urine Glucose (UA) (NEGATIVE) mg/dL Urine Ketones (NEGATIVE) mg/dL Urine Occult Blood (NEGATIVE) Urine Nitrite (NEGATIVE) Urine Bilirubin (NEGATIVE) Urine Urobilinogen (0.2-1.0) E.U./dL Ur Leukocyte Esterase (NEGATIVE) U Hyaline Cast (Auto) Urine RBC (0-5) /HPF Urine WBC (0-5) /HPF Ur Epithelial Cells /LPF Urine Bacteria (NONE TO FEW) /HPF Med Orders - Current: Current Medications Acetaminophen (Acetaminophen 500 Mg Tab) 500 mg PO Q4H PRN PRN Reason: Pain/Fever Atropine Sulfate (Atropine 0.1 Mg/Ml 10 Ml Syringe) 0 mg IVPUSH ASDIRECTED PRN PRN Reason: Heart. Dextrose/Water (50% Dextrose In Water 50 Ml Syringe) 50 ml IV ASDIRECTED PRN PRN Reason: Hypoglycemia Dextrose/Water (50% Dextrose In Water 50 Ml Syringe) 50 ml IV ASDIRECTED PRN PRN Reason: Hypoglycemia Dextrose/Water (50% Dextrose In Water 50 Ml Syringe) 50 ml IV ASDIRECTED PRN PRN Reason: Hypoglycemia Epinephrine HCl (Epinephrine 1:10,000 1 Mg/10 Ml Syringe) 1 mg IVPUSH ASDIRECTED PRN PRN Reason: Heart. Glucagon (Glucagon,Human Recombinant 1 Mg Vial) 1 mg IM ASDIRECTED PRN PRN Reason: Hypoglycemia Glucagon (Glucagon,Human Recombinant 1 Mg Vial) 1 mg IM ASDIRECTED PRN PRN Reason: Hypoglycemia Glucagon (Glucagon,Human Recombinant 1 Mg Vial) 1 mg IM ASDIRECTED PRN PRN Reason: Hypoglycemia Sodium Chloride (Normal Saline) 1,000 mls @ 100 mls/hr IV ASDIRECTED [facility] Last Admin: 11/09/20 07:08 Dose: 100 mls/hr Documented by: Sodium Chloride (Normal Saline) 100 mls @ 150 mls/hr IV ASDIRECTED [facility] Last Admin: 11/09/20 12:04 Dose: 150 mls/hr Documented by: Insulin Aspart (Insulin Aspart 100 Units/Ml 3 Ml Pen) 0 unit SUBCUT QIDACANDBED PRN PRN Reason: Elevated blood sugar Insulin Glargine (Patients Own Medinsulin Glargine,Human Rec. Analog 100 Units/Ml 3 Ml Pen) 35 units SUBCUT BEDTIME [facility] Last Admin: 11/08/20 21:16 Dose: 35 unit Documented by: Lidocaine HCl (Lidocaine 2% 100 Mg/5 Ml Syringe) 0 mg IVPUSH ASDIRECTED PRN PRN Reason: Heart. Nitroglycerin (Nitroglycerin 0.4 Mg Tab.Sl) 0.4 mg SL ASDIRECTED PRN PRN Reason: Heart. Non-Formulary Medication (Losartan/Hydrochlorothiazide [Hyzaar 100-25 Tablet]) 1 tab PO DAILY [facility] Non-Formulary Medication (Lactobacillus 3/Fos/Pantethine [Probiotic & Acidophilus]) 1 cap PO DAILY [facility] Amitriptyline 25 Mg (Tab) 1 each PO BEDTIME [facility] Last Admin: 11/08/20 21:09 Dose: 1 each Documented by: Atorvastatin 80 Mg (Tab) 1 each PO DAILY [facility] Last Admin: 11/09/20 08:14 Dose: 1 each Documented by: Finasteride 5 Mg Tab 1 each PO DAILY [facility] Last Admin: 11/09/20 08:15 Dose: 1 each Documented by: Liraglutide (Rdna Origin) 0.6 Mg/0.1 Ml 3 Ml Pen 1.8 each SUBCUT DAILY [facility] Last Admin: 11/09/20 08:17 Dose: 1.8 each Documented by: Omeprazole 20 Mg Cap (.Cr) 1 each PO BIDAC [facility] Last Admin: 11/09/20 07:33 Dose: 1 each Documented by: Potassium Chloride (10 Meq Tab.Er) 1 each PO MoWeFr [facility] Sulfamethoxazole/Trimethoprim 800-160 Mg Tab 1 each PO DAILY [facility] Last Admin: 11/09/20 08:15 Dose: 1 each Documented by: Insulin Aspart ( Novolog) 100 Units/Ml 3 Ml Pen 0 each SUBCUT WITHMEALSANDBED [facility]; Protocol Last Admin: 11/09/20 12:04 Dose: 1 each Documented by: Carvedilol 12.5 Mg (Tab) 0.5 each PO BIDMEALS [facility] Last Admin: 11/09/20 08:16 Dose: 0.5 each Documented by: Sodium Chloride (Sodium Chloride 0.9% 10 Ml Syringe) 10 ml FLUSH Q8HR PRN PRN Reason: keep vein open Tamsulosin HCl (Tamsulosin 0.4 Mg Cap.Er) 0.4 mg PO DAILY [facility] Vitamin B Complex (Vitamin B Complex Tab) 1 each PO DAILY [facility] Last Admin: 11/09/20 08:15 Dose: 1 each Documented by: Discontinued Medications Sodium Chloride (Normal Saline) 1,000 mls @ 350 mls/hr IV .BOLUS ONE Stop: 11/08/20 14:30 Last Infusion: 11/08/20 14:43 Dose: 100 mls/hr Documented by: Sodium Chloride (Normal Saline) 500 mls @ 100 mls/hr IV ASDIRECTED [facility] Insulin Glargine, Human Rec. Analog 100 Units/Ml 3 Ml Pen 23 each SUBCUT DAILY [facility] - Exam Quality Assessment: No: Supplemental Oxygen General: Alert, Oriented, Cooperative, No Acute Distress Neck: Supple Lungs: Clear to Auscultation, Normal Respiratory Effort Cardiovascular: Regular Rate, Regular Rhythm, Other (Negative Homans, no unilateral lower extremity edema) GI/Abdominal Exam: Normal Bowel Sounds, Soft (Male) Exam: Deferred Back Exam: No: CVA Tenderness (L), CVA Tenderness (R) Extremities: No: Pedal Edema, Stephanie's Sign Skin: Warm, Dry, Intact Neurological: No New Focal Deficit, Normal Speech, Normal Tone - Patient Data Lab Results Last 24 hrs: Laboratory Results - last 24 hr 11/08/20 11/08/20 11/08/20 Range/Units 11:55 12:27 16:00 WBC (5.00-10.00) 10^3/uL RBC (4.50-6.00) 10^6/uL Hgb (13.0-17.0) g/dL Hct (40.0-52.0) % MCV (82.0-92.0) fL MCH (27.0-31.0) pg MCHC (32.0-36.0) g/dL RDW (11.5-14.5) % Plt Count (150-400) 10^3/uL MPV (7.4-10.4) fL Immature Gran % (Auto) (0.0-5.0) % Neut % (Auto) (50.0-70.0) % Lymph % (Auto) (20.0-40.0) % Miller % (Auto) (2.0-8.0) % Eos % (Auto) (1.0-3.0) % Baso % (Auto) (0.0-1.0) % Neut # (Auto) (2.50-7.00) 10^3/uL Lymph # (Auto) (1.00-4.00) 10^3/uL Miller # (Auto) (0.10-0.80) 10^3/uL Eos # (Auto) (0.10-0.30) 10^3/uL Baso # (Auto) (0.00-0.10) 10^3/uL Immature Gran # (Auto) (0.00-0.50) 10^3/uL Sodium (136-145) mmol/L Potassium (3.5-5.1) mmol/L Chloride (98-107) mmol/L Carbon Dioxide (21.0-32.0) mmol/L Anion Gap (5-15) mmol/L BUN (7-18) mg/dL Creatinine (0.51-1.17) mg/dL Est Cr Clr Drug Dosing mL/min Estimated GFR (MDRD) mL/min Glucose (70-140) mg/dL POC Glucose 138 H (74-106) mg/dl Calcium (8.7-10.3) mg/dL Troponin I 0.030 (0.000-0.056) ng/mL B-Natriuretic Peptide 43 (0-100) pg/mL Specimen Type Urinvoid Urine Color Dark yellow H (YELLOW) Urine Appearance Clear (CLEAR) Urine pH 5.0 (5.0-9.0) Ur Specific [place] 1.025 (1.005-1.030) Urine Protein 30 H (NEGATIVE) mg/dL Urine Glucose (UA) Negative (NEGATIVE) mg/dL Urine Ketones Negative (NEGATIVE) mg/dL Urine Occult Blood Negative (NEGATIVE) Urine Nitrite Negative (NEGATIVE) Urine Bilirubin Small H (NEGATIVE) Urine Urobilinogen 0.2 (0.2-1.0) E.U./dL Ur Leukocyte Esterase Negative (NEGATIVE) U Hyaline Cast (Auto) Moderate Urine RBC 0-5 (0-5) /HPF Urine WBC 10-20 H (0-5) /HPF Ur Epithelial Cells Few /LPF Urine Bacteria Moderate H (NONE TO FEW) /HPF 11/08/20 11/08/20 11/09/20 Range/Units 17:22 21:13 07:25 WBC 4.26 L (5.00-10.00) 10^3/uL RBC 3.10 L (4.50-6.00) 10^6/uL Hgb 8.3 L D (13.0-17.0) g/dL Hct 26.6 L (40.0-52.0) % MCV 85.8 D (82.0-92.0) fL MCH 26.8 L (27.0-31.0) pg MCHC 31.2 L (32.0-36.0) g/dL RDW 15.7 H (11.5-14.5) % Plt Count 95 L (150-400) 10^3/uL MPV 9.6 (7.4-10.4) fL Immature Gran % (Auto) 0.0 (0.0-5.0) % Neut % (Auto) 60.2 (50.0-70.0) % Lymph % (Auto) 27.5 (20.0-40.0) % Miller % (Auto) 8.7 H (2.0-8.0) % Eos % (Auto) 3.1 H (1.0-3.0) % Baso % (Auto) 0.5 (0.0-1.0) % Neut # (Auto) 2.57 (2.50-7.00) 10^3/uL Lymph # (Auto) 1.17 (1.00-4.00) 10^3/uL Miller # (Auto) 0.37 (0.10-0.80) 10^3/uL Eos # (Auto) 0.13 (0.10-0.30) 10^3/uL Baso # (Auto) 0.02 (0.00-0.10) 10^3/uL Immature Gran # (Auto) 0.00 (0.00-0.50) 10^3/uL Sodium (136-145) mmol/L Potassium (3.5-5.1) mmol/L Chloride (98-107) mmol/L Carbon Dioxide (21.0-32.0) mmol/L Anion Gap (5-15) mmol/L BUN (7-18) mg/dL Creatinine (0.51-1.17) mg/dL Est Cr Clr Drug Dosing mL/min Estimated GFR (MDRD) mL/min Glucose (70-140) mg/dL POC Glucose 152 H 172 H (74-106) mg/dl Calcium (8.7-10.3) mg/dL Troponin I (0.000-0.056) ng/mL B-Natriuretic Peptide (0-100) pg/mL Specimen Type Urine Color (YELLOW) Urine Appearance (CLEAR) Urine pH (5.0-9.0) Ur Specific [place] (1.005-1.030) Urine Protein (NEGATIVE) mg/dL Urine Glucose (UA) (NEGATIVE) mg/dL Urine Ketones (NEGATIVE) mg/dL Urine Occult Blood (NEGATIVE) Urine Nitrite (NEGATIVE) Urine Bilirubin (NEGATIVE) Urine Urobilinogen (0.2-1.0) E.U./dL Ur Leukocyte Esterase (NEGATIVE) U Hyaline Cast (Auto) Urine RBC (0-5) /HPF Urine WBC (0-5) /HPF Ur Epithelial Cells /LPF Urine Bacteria (NONE TO FEW) /HPF 11/09/20 11/09/20 11/09/20 Range/Units 07:25 07:26 11:39 WBC (5.00-10.00) 10^3/uL RBC (4.50-6.00) 10^6/uL Hgb (13.0-17.0) g/dL Hct (40.0-52.0) % MCV (82.0-92.0) fL MCH (27.0-31.0) pg MCHC (32.0-36.0) g/dL RDW (11.5-14.5) % Plt Count (150-400) 10^3/uL MPV (7.4-10.4) fL Immature Gran % (Auto) (0.0-5.0) % Neut % (Auto) (50.0-70.0) % Lymph % (Auto) (20.0-40.0) % Miller % (Auto) (2.0-8.0) % Eos % (Auto) (1.0-3.0) % Baso % (Auto) (0.0-1.0) % Neut # (Auto) (2.50-7.00) 10^3/uL Lymph # (Auto) (1.00-4.00) 10^3/uL Miller # (Auto) (0.10-0.80) 10^3/uL Eos # (Auto) (0.10-0.30) 10^3/uL Baso # (Auto) (0.00-0.10) 10^3/uL Immature Gran # (Auto) (0.00-0.50) 10^3/uL Sodium 142 (136-145) mmol/L Potassium 4.4 (3.5-5.1) mmol/L Chloride 106 (98-107) mmol/L Carbon Dioxide 26.0 (21.0-32.0) mmol/L Anion Gap 14.4 (5-15) mmol/L BUN 27 H (7-18) mg/dL Creatinine 1.52 H (0.51-1.17) mg/dL Est Cr Clr Drug Dosing 52.58 mL/min Estimated GFR (MDRD) 46 mL/min Glucose 124 (70-140) mg/dL POC Glucose 122 H 213 H (74-106) mg/dl Calcium 8.4 L (8.7-10.3) mg/dL Troponin I (0.000-0.056) ng/mL B-Natriuretic Peptide (0-100) pg/mL Specimen Type Urine Color (YELLOW) Urine Appearance (CLEAR) Urine pH (5.0-9.0) Ur Specific [place] (1.005-1.030) Urine Protein (NEGATIVE) mg/dL Urine Glucose (UA) (NEGATIVE) mg/dL Urine Ketones (NEGATIVE) mg/dL Urine Occult Blood (NEGATIVE) Urine Nitrite (NEGATIVE) Urine Bilirubin (NEGATIVE) Urine Urobilinogen (0.2-1.0) E.U./dL Ur Leukocyte Esterase (NEGATIVE) U Hyaline Cast (Auto) Urine RBC (0-5) /HPF Urine WBC (0-5) /HPF Ur Epithelial Cells /LPF Urine Bacteria (NONE TO FEW) /HPF Result Diagrams: 11/10/20 07:35 11/10/20 07:35 Sepsis Event Note - Evaluation Sepsis Screening Result: No Definite Risk - Focused Exam Vital Signs: Vital Signs Temp Pulse Pulse Resp BP Pulse Ox 11/09/20 11:00 97.2 F 81 16 156/63 H 96 11/09/20 06:10 96.6 F L 89 16 126/66 97 11/09/20 02:53 97 F 75 16 151/64 H 94 L - Problem List Review Problem List Initiated/Reviewed/Updated: Yes - My Orders Last 24 Hours: My Active Orders 11/09/20 11:13 Transfuse Red Blood Cells [COMM] Routine 11/09/20 11:25 RED BLOOD CELLS LP [BBK] Routine 11/09/20 11:30 Sodium Chloride 0.9% [Normal Saline] 100 ml IV ASDIRECTED 11/09/20 12:12 Dextrose 50% in Water 50 ml IV ASDIRECTED PRN Glucagon,Human Recombinant [GlucaGen] 1 mg IM ASDIRECTED PRN Insulin Aspart [NovoLOG] See Dose Instructions SUBCUT QIDACANDBED PRN 11/09/20 12:15 Losartan/Hydrochlorothiazide [Hyzaar 100-25 Tablet] 1 tab PO DAILY Tamsulosin [Flomax] 0.4 mg PO DAILY 11/10/20 09:00 Lactobacillus 3/Fos/Pantethine [Probiotic & Acidophilus] 1 cap PO DAILY - Plan Plan:: History Summary; Mr Francisco is a 70-year-old gentleman that was admitted by Flora Randolph into OBS status due to some dizziness, near syncope signs and symptoms suggestive of orthostatic hypotension. During his clinical evaluation day of admission it was noted that while he was leaning over to put his compression stockings on he has subjective feeling of heaviness in both his hips legs with some blurred vision and felt he was going to pass out. This has occurred 2 more times while in the clinic; both times while he tried to walk a short distance. Associated vision changes (eyes not focusing, everything seems needle loom operator than usual), SOB, cough (improving). No LOC, headache, chest pain, left arm pain, palpitations, N/V/D, bloody stools, or bleeding from any other location. Has been eating and drinking well. Reports about 8 glasses of water per day--although he does take diuretics. Glucose low 100s this AM and it was noted that the patient had not eaten any reckless. 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 NS 350 mL bolus x 1, then NS at 100 mL/hr Orthostatic BPs Accurate I & O Accuchecks QID CXR, troponin, BNP, UA on admit CBC & BMP in AM Pertinent history 10/26-10/28/20: Hospitalized at [facility] for acute blood loss anemia, melanotic stools, White's esophagus, iron deficiency, elevated creatinine, HFrEF, and mild aortic stenosis. -EGD noted a medium-sized hiatal hernia, White's stage C2-M5, and non-bleeding erosive gastropathy. -Colonoscopy noted poor prep, however negative with a repeat recommended in 1 year. Recommendations included holding both Xarelto and Plavix for about 2 weeks post discharge and starting on omeprazole 20 mg BID. 11/06/20: Evaluated by Dr. Catherine Sotelo who consulted with cardiology regarding his classic stable angina pectoris and low hemoglobin. He was given 1 unit of PRBCs yesterday with goals of hemoglobin of 10 due to his CV profile Primary hospital problems --Anemia, blood loss, transfused 1 PRBC today Recent diagnosis White's esophagus without dysplasia, stable. Continue omeprazole BID. Chronic conditions: -T2DM: On metformin 1000 mg BID, Victoza 1.8 mg SQ daily, novolog SS, Lantus 46 units daily. -CAD, s/p CABG x 3: On coreg 12.5 mg BID, nitroglycerin 0.4 mg SL prn. -Chronic systolic HF: Holding lasix, ECHO 10/2020 noted EF 55%, mild aortic stenosis, mild LVH, grade 2 diastolic dysfunction, normal systolic function. -Heart murmur. -HTN: On losartan-HCTZ 100-25 mg daily. Restarted to day -History of DVT/PE, IVC filter in place. -Hypokalemia: On potassium 10 mEq MWF. Chronic HFrEF (heart failure with reduced ejection fraction) (HCC), stable. No overt signs of fluid overload. Disposition/overall plan --Transfused 1 unit PRBC, hemoglobin goal of 10 --Restart Coreg and BP meds --Hold Lasix --Monitor hemoglobin,
[2020-11-09] MEDS: Tamsulosin 0.4 MG Cap.ER PO SCH (13:43)
[2020-11-09] MEDS: HYDROCHLOROTHIAZIDE PO SCH (13:44)
[2020-11-09] MEDS: LOSARTAN PO SCH (13:44)
[2020-11-09] MEDS: Amitriptyline 25 MG Tab PO SCH (20:49)
[2020-11-09] MEDS: [UNRECOGNIZED DRUG - OTHER] SUBCUT SCH (20:50)
[2020-11-10] MEDS: Sodium Chloride 0.9% 1,000 ML IV SCH (06:08)
[2020-11-10] MEDS: Omeprazole 20 MG Cap.CR PO SCH (07:37)
[2020-11-10] MEDS: Liraglutide (rDNA Origin) 0.6 MG/0.1 ML 3 ML Pen SUBCUT SCH (08:02)
[2020-11-10] MEDS: HYDROCHLOROTHIAZIDE PO SCH (08:04)
[2020-11-10] MEDS: LOSARTAN PO SCH (08:04)
[2020-11-10] MEDS: Tamsulosin 0.4 MG Cap.ER PO SCH (08:04)
[2020-11-10] MEDS: atorvaSTATin 80 MG Tab PO SCH (08:04)
[2020-11-10] MEDS: Carvedilol 12.5 MG Tab PO SCH (08:05)
[2020-11-10] MEDS: Finasteride 5 MG Tab PO SCH (08:05)
[2020-11-10] MEDS: Sulfamethoxazole/Trimethoprim 800-160 MG Tab PO SCH (08:05)
[2020-11-10] MEDS: Vitamin B Complex Tab PO SCH (08:09)
[2020-11-10 08:13] LABS: ANION GAP 13.9 mmol/L (5-15)
[2020-11-10] MEDS ORDERED: Tamsulosin 0.4 MG Cap.ER PO SCH (09:00)
[2020-11-10] MEDS ORDERED: Lactobacillus Rhamnosus GG (Probiotic) Cap PO SCH (09:00)
[2020-11-10] MEDS ORDERED: Potassium Chloride 10 MEQ Tab.ER PO SCH (09:00)
[2020-11-10] MEDS ORDERED: LOSARTAN PO SCH (09:00)
[2020-11-10] MEDS ORDERED: HYDROCHLOROTHIAZIDE PO SCH (09:00)
[2020-11-10 10:58] LABS: HEMOGLOBIN A1C 6.3 % (4.3-5.7)
--- NOTE | 2020-11-10 11:24 | PCM.DCSUM1 ---
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 Francisco is a 70yoM who was admitted by DIMA Moraes, after evaluation at [facility] due to orthostatic hypotension and presyncope. Pertinent history prior to this hospitalization include being hospitalized at [facility] 10/26-10/28/20 for acute blood loss anemia and melanotic stools. EGD noted a medium-sized hiatal hernia, White's stage C2-M5, and non-bleeding erosive gastropathy. Colonoscopy noted poor prep, however negative with a repeat recommended in 1 year. Echo showed EF 55%, grade 2 diastolic dysfunction, and mild aortic stenosis. Recommendations included holding both Xarelto and Plavix for about 2 weeks post discharge and starting on omeprazole 20 mg BID. On 11/06/20, he was evaluated by PCP Dr. Catherine Sotelo who consulted with cardiology regarding symptoms felt to be stable angina pectoris and low hemoglobin. He was given 1 unit of PRBCs on 11/07/20 with goal hemoglobin of 10 due to his CV profile. During his clinical evaluation on the day of admission, it was noted that while he was leaning over to put his compression stockings on he had subjective feeling of heaviness in both his hips legs with some blurred vision and felt he was going to pass out. This has occurred 2 more times while in the clinic while he tried to walk a short distance. He denied LOC, headache, chest pain, left arm pain, palpitations, N/V/D, bloody stools, or bleeding from any location. Reported having been eating and drinking well, including about 8 glasses of water per day although he does take diuretics. Glucose was in the low 100s that AM and it was noted that the patient had not eaten any breakfast. 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 During his hospital stay, he was initially given NS 350cc bolus and then 100cc/hr. Furosemide was held and carvedilol dose reduced to 6.25mg BID. CXR, troponin, BNP, and UA upon admission without abnormality.Monitored on telemetry, which was without concerns. On 11/09/20, he was given 1 unit of PRBCs due to a hemoglobin of 8.3 with prior recommendation per cardiology to have a hemoglobin goal of 10 if having anginal symptoms. A1c obtained noting to be 6.3% and insulin was reduced as well as metformin held during stay. Clinical course improved with no orthostasis or vital sign abnormality on the day of discharge and improving hemoglobin. Clinical presentation with volume neutral status without any evidence of dehydration or fluid overload (notably no JVD, orthopnea, PND, or edema). Suspect his persistent dyspnea with exertion is due to underlying angina, anemia (albeit improving), and deconditioning. On the day of discharge, he reported overall hesitation with going home because of his decreased ability to ambulate for distances over the past couple weeks since discharge from [facility] but after review of clinical course and options for disposition, including private pay swing bed stay, patient desired discharge to home. Reviewed return precautions in detail and scheduled follow-up in clinic with PCP on the next business day. Discharge and follow-up recommendations: - Discharge to home - Medication changes at discharge: - Continue holding clopidogrel and rivaroxaban - Hold furosemide; instructed to restart over the weekend if noting edema or weight gain - Decrease carvedilol to 6.25mg BID - Decrease insulin Lantus to 30un daily - Follow-up with PCP Dr. Catherine Sotelo in 3 days on 11/13/20 - Recommend cardiology consultation for angina workup - Discharge Data Discharge Date: 11/10/20 Discharge Disposition: Home, Self-Care 01 Condition: Good - Referral to Home Health Primary Care Physician: Kizzy Sotelo MD - Patient Instructions Diet: Heart Healthy Diet Activity: As Tolerated, No Strenuous Activities Showering/Bathing: May Shower Notify Provider of: Fever, Increased Pain - Discharge Plan *PRESCRIPTION DRUG MONITORING PROGRAM REVIEWED*: Not Applicable *COPY OF PRESCRIPTION DRUG MONITORING REPORT IN PATIENT ISABEL: Not Applicable Home Medications: Home Meds metFORMIN [Glucophage] 1,000 mg PO BID 09/12/14 [History] Insulin Aspart [NovoLOG] 0 unit SUBCUT QIDACANDBED PRN 08/02/16 [History] atorvaSTATin [Lipitor] 80 mg PO DAILY 09/19/16 [History] Amitriptyline [Elavil] 25 mg PO BEDTIME 02/18/19 [History] Finasteride 5 mg PO DAILY 02/18/19 [History] Nitroglycerin 0.4 mg SL ASDIRECTED PRN 02/18/19 [History] Tamsulosin HCl 0.4 mg PO DAILY 02/18/19 [History] Acetaminophen 500 mg PO Q4H PRN 04/15/19 [History] Liraglutide [Victoza] 1.8 mg SUBCUT DAILY 04/15/19 [History] Clindamycin Phosphate [Cleocin T 1% Lotion] 1 applic TOP BID PRN 12/23/19 [History] Vitamin B Complex 1 cap PO DAILY 12/23/19 [History] Sulfamethoxazole/Trimethoprim [Bactrim Ds Tablet] 1 tab PO DAILY 12/24/19 [History] Urea/Hydrophilic Cream [Betamide] 1 applic TOP BID PRN 12/24/19 [History] Lactobacillus 3/Fos/Pantethine [Probiotic & Acidophilus] 1 cap PO DAILY 11/08/20 [History] Losartan/Hydrochlorothiazide [Hyzaar 100-25 Tablet] 1 tab PO DAILY 11/08/20 [History] Omeprazole 20 mg PO BIDAC 11/08/20 [History] Insulin Glarg,Human.Rec.Analog [Lantus Solostar] 30 units SQ BEDTIME #0 11/10/20 [Rx] carvediloL [Carvedilol] 6.25 mg PO BID #1 11/10/20 [Rx] Furosemide [Lasix] 20 mg PO 1400 tablet 11/12/20 [Rx] Potassium Chloride [Klor-Con 10] 10 meq PO DAILY #30 tab.er 11/12/20 [Rx] Referrals: Kizzy Sotelo MD [Primary Care Provider] - 11/13/20 - Discharge Summary/Plan Comment DC Time >30 min.: Yes (90min spent on coordination of care, including at least 60min at bedside) - General Info Subjective Update: Mr. Francisco reports that he is overall hesitant to go home because of his decreased ability to ambulate for distances over the past couple weeks since discharge from [facility]. Reports that his lightheadedness upon standing is still present at times, but is improved. Endorses persistent shortness of breath with exertion, but denies any other cardiopulmonary symptoms, including chest pain, palpitations, paroxysmal nocturnal dyspnea, orthopnea, or cough. Tolerating diet, including fluids, well. States he has noticed mild burning pain in the right groin when he stands over the past week; states that it completely resolves after he sits or lies for a few moments. Denies any other new complaints. Following detailed review of clinical course and options for disposition, patient desires discharge to home. - Patient Data Vitals - Most Recent: Last Vital Signs Temp 36.7 C 11/10/20 06:22 Pulse 80 11/10/20 08:00 Resp 20 11/10/20 06:22 BP 158/78 H 11/10/20 08:00 Pulse Ox 97 11/10/20 06:22 Orthostatic Blood Pressure [ 117/46 Standing] Orthostatic Blood Pressure [ 107/48 Sitting] Orthostatic Blood Pressure [ 117/51 Supine] Weight - Most Recent: 128.593 kg I&O - Last 24 hours: Intake & Output 11/09/20 11/10/20 11/10/20 22:59 06:59 14:59 Intake Total 1097 821 Output Total 975 600 Balance 122 221 Lab Results - Last 24 hrs: Laboratory Results - last 24 hr 11/09/20 11/09/20 11/09/20 Range/Units 11:39 17:34 20:20 WBC (5.00-10.00) 10^3/uL RBC (4.50-6.00) 10^6/uL Hgb (13.0-17.0) g/dL Hct (40.0-52.0) % MCV (82.0-92.0) fL MCH (27.0-31.0) pg MCHC (32.0-36.0) g/dL RDW (11.5-14.5) % Plt Count (150-400) 10^3/uL MPV (7.4-10.4) fL Immature Gran % (Auto) (0.0-5.0) % Neut % (Auto) (50.0-70.0) % Lymph % (Auto) (20.0-40.0) % [place] % (Auto) (2.0-8.0) % Eos % (Auto) (1.0-3.0) % Baso % (Auto) (0.0-1.0) % Neut # (Auto) (2.50-7.00) 10^3/uL Lymph # (Auto) (1.00-4.00) 10^3/uL [place] # (Auto) (0.10-0.80) 10^3/uL Eos # (Auto) (0.10-0.30) 10^3/uL Baso # (Auto) (0.00-0.10) 10^3/uL Immature Gran # (Auto) (0.00-0.50) 10^3/uL Sodium (136-145) mmol/L Potassium (3.5-5.1) mmol/L Chloride (98-107) mmol/L Carbon Dioxide (21.0-32.0) mmol/L Anion Gap (5-15) mmol/L BUN (7-18) mg/dL Creatinine (0.51-1.17) mg/dL Est Cr Clr Drug Dosing mL/min Estimated GFR (MDRD) mL/min Glucose (70-140) mg/dL POC Glucose 213 H 112 H 140 H (74-106) mg/dl Hemoglobin A1c (4.3-5.7) % Calcium (8.7-10.3) mg/dL 11/10/20 11/10/20 11/10/20 Range/Units 07:25 07:35 07:35 WBC 4.63 L (5.00-10.00) 10^3/uL RBC 3.23 L (4.50-6.00) 10^6/uL Hgb 8.9 L (13.0-17.0) g/dL Hct 27.7 L (40.0-52.0) % MCV 85.8 (82.0-92.0) fL MCH 27.6 (27.0-31.0) pg MCHC 32.1 (32.0-36.0) g/dL RDW 15.7 H (11.5-14.5) % Plt Count 83 L (150-400) 10^3/uL MPV 9.5 (7.4-10.4) fL Immature Gran % (Auto) 0.2 (0.0-5.0) % Neut % (Auto) 62.0 (50.0-70.0) % Lymph % (Auto) 23.8 (20.0-40.0) % [place] % (Auto) 9.9 H (2.0-8.0) % Eos % (Auto) 3.7 H (1.0-3.0) % Baso % (Auto) 0.4 (0.0-1.0) % Neut # (Auto) 2.87 (2.50-7.00) 10^3/uL Lymph # (Auto) 1.10 (1.00-4.00) 10^3/uL [place] # (Auto) 0.46 (0.10-0.80) 10^3/uL Eos # (Auto) 0.17 (0.10-0.30) 10^3/uL Baso # (Auto) 0.02 (0.00-0.10) 10^3/uL Immature Gran # (Auto) 0.01 (0.00-0.50) 10^3/uL Sodium 141 (136-145) mmol/L Potassium 4.2 (3.5-5.1) mmol/L Chloride 107 (98-107) mmol/L Carbon Dioxide 24.3 (21.0-32.0) mmol/L Anion Gap 13.9 (5-15) mmol/L BUN 21 H (7-18) mg/dL Creatinine 1.31 H (0.51-1.17) mg/dL Est Cr Clr Drug Dosing 61.01 mL/min Estimated GFR (MDRD) 54 mL/min Glucose 95 (70-140) mg/dL POC Glucose (74-106) mg/dl Hemoglobin A1c 6.3 H (4.3-5.7) % Calcium 8.7 (8.7-10.3) mg/dL 11/10/20 Range/Units 07:35 WBC (5.00-10.00) 10^3/uL RBC (4.50-6.00) 10^6/uL Hgb (13.0-17.0) g/dL Hct (40.0-52.0) % MCV (82.0-92.0) fL MCH (27.0-31.0) pg MCHC (32.0-36.0) g/dL RDW (11.5-14.5) % Plt Count (150-400) 10^3/uL MPV (7.4-10.4) fL Immature Gran % (Auto) (0.0-5.0) % Neut % (Auto) (50.0-70.0) % Lymph % (Auto) (20.0-40.0) % [place] % (Auto) (2.0-8.0) % Eos % (Auto) (1.0-3.0) % Baso % (Auto) (0.0-1.0) % Neut # (Auto) (2.50-7.00) 10^3/uL Lymph # (Auto) (1.00-4.00) 10^3/uL [place] # (Auto) (0.10-0.80) 10^3/uL Eos # (Auto) (0.10-0.30) 10^3/uL Baso # (Auto) (0.00-0.10) 10^3/uL Immature Gran # (Auto) (0.00-0.50) 10^3/uL Sodium (136-145) mmol/L Potassium (3.5-5.1) mmol/L Chloride (98-107) mmol/L Carbon Dioxide (21.0-32.0) mmol/L Anion Gap (5-15) mmol/L BUN (7-18) mg/dL Creatinine (0.51-1.17) mg/dL Est Cr Clr Drug Dosing mL/min Estimated GFR (MDRD) mL/min Glucose (70-140) mg/dL POC Glucose 92 (74-106) mg/dl Hemoglobin A1c (4.3-5.7) % Calcium (8.7-10.3) mg/dL Med Orders - Current: Current Medications Acetaminophen (Acetaminophen 500 Mg Tab) 500 mg PO Q4H PRN PRN Reason: Pain/Fever Atropine Sulfate (Atropine 0.1 Mg/Ml 10 Ml Syringe) 0 mg IVPUSH ASDIRECTED PRN PRN Reason: Heart. Dextrose/Water (50% Dextrose In Water 50 Ml Syringe) 50 ml IV ASDIRECTED PRN PRN Reason: Hypoglycemia Epinephrine HCl (Epinephrine 1:10,000 1 Mg/10 Ml Syringe) 1 mg IVPUSH ASDIRECTED PRN PRN Reason: Heart. Glucagon (Glucagon,Human Recombinant 1 Mg Vial) 1 mg IM ASDIRECTED PRN PRN Reason: Hypoglycemia Sodium Chloride (Normal Saline) 1,000 mls @ 100 mls/hr IV ASDIRECTED [facility] Last Admin: 11/10/20 06:08 Dose: 100 mls/hr Documented by: Insulin Glargine (Patients Own Medinsulin Glargine,Human Rec. Analog 100 Units/Ml 3 Ml Pen) 35 units SUBCUT BEDTIME [facility] Last Admin: 11/09/20 20:50 Dose: 35 unit Documented by: Lactobacillus Rhamnosus (Lactobacillus Rhamnosus Gg (Probiotic) Cap) 1 cap PO DAILY [facility] Last Admin: 11/10/20 08:09 Dose: 1 cap Documented by: Lidocaine HCl (Lidocaine 2% 100 Mg/5 Ml Syringe) 0 mg IVPUSH ASDIRECTED PRN PRN Reason: Heart. Nitroglycerin (Nitroglycerin 0.4 Mg Tab.Sl) 0.4 mg SL ASDIRECTED PRN PRN Reason: Heart. Amitriptyline 25 Mg (Tab) 1 each PO BEDTIME [facility] Last Admin: 11/09/20 20:49 Dose: 1 each Documented by: Atorvastatin 80 Mg (Tab) 1 each PO DAILY [facility] Last Admin: 11/10/20 08:04 Dose: 1 each Documented by: Finasteride 5 Mg Tab 1 each PO DAILY [facility] Last Admin: 11/10/20 08:05 Dose: 1 each Documented by: Liraglutide (Rdna Origin) 0.6 Mg/0.1 Ml 3 Ml Pen 1.8 each SUBCUT DAILY [facility] Last Admin: 11/10/20 08:02 Dose: 1.8 each Documented by: Omeprazole 20 Mg Cap (.Cr) 1 each PO BIDAC [facility] Last Admin: 11/10/20 07:37 Dose: 1 each Documented by: Potassium Chloride (10 Meq Tab.Er) 1 each PO MoWeFr [facility] Last Admin: 11/10/20 08:04 Dose: 1 each Documented by: Sulfamethoxazole/Trimethoprim 800-160 Mg Tab 1 each PO DAILY [facility] Last Admin: 11/10/20 08:05 Dose: 1 each Documented by: Carvedilol 12.5 Mg (Tab) 0.5 each PO BIDMEALS [facility] Last Admin: 11/10/20 08:05 Dose: 0.5 each Documented by: Insulin Aspart ( Novolog) 100 Units/Ml 3 Ml Pen 0 each SUBCUT QIDACANDBED PRN PRN Reason: Elevated blood sugar Losartan/Hydrochlorothiazide 100-25 Tablet 1 each PO DAILY [facility] Last Admin: 11/10/20 08:04 Dose: 1 each Documented by: Tamsulosin 0.4 Mg (Cap.Er) 1 each PO DAILY [facility] Last Admin: 11/10/20 08:04 Dose: 1 each Documented by: Sodium Chloride (Sodium Chloride 0.9% 10 Ml Syringe) 10 ml FLUSH Q8HR PRN PRN Reason: keep vein open Vitamin B Complex (Vitamin B Complex Tab) 1 each PO DAILY [facility] Last Admin: 11/10/20 08:09 Dose: 1 each Documented by: Discontinued Medications Sodium Chloride (Normal Saline) 1,000 mls @ 350 mls/hr IV .BOLUS ONE Stop: 11/08/20 14:30 Last Infusion: 11/08/20 14:43 Dose: 100 mls/hr Documented by: Sodium Chloride (Normal Saline) 500 mls @ 100 mls/hr IV ASDIRECTED [facility] Sodium Chloride (Normal Saline) 100 mls @ 150 mls/hr IV ASDIRECTED [facility] Last Admin: 11/09/20 12:04 Dose: 150 mls/hr Documented by: Insulin Aspart ( Novolog) 100 Units/Ml 3 Ml Pen 0 each SUBCUT WITHMEALSANDBED [facility]; Protocol Last Admin: 11/09/20 12:04 Dose: 1 each Documented by: Insulin Glargine, Human Rec. Analog 100 Units/Ml 3 Ml Pen 23 each SUBCUT DAILY [facility] Tamsulosin 0.4 Mg (Cap.Er) 1 each PO DAILY [facility] Losartan/Hydrochlorothiazide 100-25 Tablet 1 each PO DAILY [facility] - Exam Physical Findings Comments:: GENERAL: Obese elderly white male lying in hospital bed in no acute distress. at bedside. HEENT: Normocephalic, atraumatic. Conjunctiva clear. Nares patent without discharge. Mucous membranes moist, posterior pharynx unremarkable. NECK: Supple, no masses. CV: Regular rate and rhythm, 2/6 systolic murmur at base with radiation to bilateral carotids, no rubs or gallops. 2+ radial pulses, 1+ DP/PT pulses. PULMONARY: Normal effort, clear to auscultation bilaterally, no wheezes, rales, or rhonchi. ABDOMEN: Protuberant, positive bowel sounds, soft, nontender. EXTREMITIES: Trace ankle edema, diffuse venous stasis changes of bilateral lower extremities. No calf or thigh tenderness to palpation. MUSCULOSKELETAL: Moves all extremities well. Stands and ambulates within room without abnormality. Normal R hip exam. NEUROLOGICAL: No obvious deficits. DERMATOLOGIC: No rashes or suspicious lesions in exposed areas. PSYCHIATRIC: Alert, interactive, appropriate affect.
[2020-11-10 11:37] VITALS: BP 137/66; PULSE 84
== END 2020-11-10 11:45 | disposition home or self-care (01) ==
LOC: KA.MS 11:00
PROVIDERS: ADMIT Nurse Practitioner Family; ATTEND Family Medicine
DX: R55 Syncope and collapse (principal); I95.9 Hypotension, unspecified; E86.0 Dehydration; E11.9 Type 2 diabetes mellitus without complications; I25.10 Atherosclerotic heart disease of native coronary artery without angina pectoris; I50.22 Chronic systolic (congestive) heart failure; I11.0 Hypertensive heart disease with heart failure; E87.6 Hypokalemia; K22.70 Barrett's esophagus without dysplasia; D50.0 Iron deficiency anemia secondary to blood loss (chronic); Z86.718 Personal history of other venous thrombosis and embolism; Z79.84 Long term (current) use of oral hypoglycemic drugs; Z79.899 Other long term (current) drug therapy
CPT/HCPCS: 36415; 71045; 80048; 81001; 82962; 83036; 83880; 84484; 85025; 87086; A9270-GY; G0378; J7030

== ENCOUNTER 2020-11-10 18:00 | Inpatient (IN) | payer BC ==
[2020-11-10] MEDS ORDERED: Sodium Chloride 0.9% 10 ML Syringe FLUSH PRN (18:02)
[2020-11-10] MEDS ORDERED: Atropine 0.1 MG/ML 10 ML Syringe IVPUSH PRN (18:02)
[2020-11-10] MEDS ORDERED: EPINEPHrine 1:10,000 1 MG/10 ML Syringe IVPUSH PRN (18:02)
[2020-11-10] MEDS ORDERED: Lidocaine 2% 100 MG/5 ML Syringe IVPUSH PRN (18:02)
[2020-11-10] MEDS ORDERED: Nitroglycerin 0.4 MG Tab.SL SL PRN (18:02)
[2020-11-10] MEDS ORDERED: Glucagon,Human Recombinant 1 MG Vial IM PRN (18:12)
[2020-11-10] MEDS ORDERED: 50% Dextrose in Water 50 ML Syringe IV PRN (18:12)
[2020-11-10] MEDS ORDERED: Acetaminophen 500 MG Tab PO PRN (18:23)
[2020-11-10] MEDS: Furosemide 40 MG/4 ML VIAL IVPUSH SCH (20:01)
[2020-11-10] MEDS: Carvedilol 12.5 MG Tab **OWN MED PO SCH (20:02)
[2020-11-10] MEDS: METFORMIN HCL 1000 MG PO SCH (20:03)
[2020-11-10] MEDS: LANTUS 100 UNIT/ML SUBCUT SCH (22:43)
[2020-11-10] MEDS: Insulin Aspart 100 Units/ML 3 ML Pen **OWN MED SUBCUT SCH (22:46)
[2020-11-10] MEDS: ATORVASTATIN 80 MG PO SCH (22:47)
[2020-11-11] MEDS ORDERED: Carvedilol 12.5 MG Tab **OWN MED PO SCH (08:00)
[2020-11-11] MEDS ORDERED: metFORMIN 500 MG Tab.ER PO SCH (08:00)
[2020-11-11] MEDS: Insulin Aspart 100 Units/ML 3 ML Pen **OWN MED SUBCUT SCH ×4 (08:12→21:23)
[2020-11-11] MEDS: Omeprazole 20 MG Cap.CR **OWN MED PO SCH ×2 (08:14→17:19)
[2020-11-11 08:38] LABS: ANION GAP 16.3 mmol/L (5-15)
[2020-11-11] MEDS: Carvedilol 12.5 MG Tab **OWN MED PO SCH ×2 (09:12→17:16)
[2020-11-11] MEDS: Potassium Chloride 10 MEQ Tab.ER **OWN MED PO SCH (09:13)
[2020-11-11] MEDS: METFORMIN HCL 1000 MG PO SCH ×2 (09:13→17:16)
[2020-11-11] MEDS: VITAMIN B COMPLEX PO SCH (09:14)
[2020-11-11] MEDS: SULFAMETHOXAZOLE PO SCH (09:14)
[2020-11-11] MEDS: Tamsulosin 0.4 MG Cap.ER PO SCH (09:14)
[2020-11-11] MEDS: TRIMETHOPRIM PO SCH (09:14)
[2020-11-11] MEDS: VICTOZA 18 MG/3 ML SUBCUT SCH (09:15)
[2020-11-11] MEDS: Furosemide 40 MG/4 ML VIAL IVPUSH SCH ×3 (09:15→21:21)
--- NOTE | 2020-11-11 11:08 | PCM.PN ---
- General Info Date of Service: 11/11/20 - Review of Systems General: Reports: Fatigue HEENT: Reports: No Symptoms Pulmonary: Denies: Cough Cardiovascular: Reports: Dyspnea on Exertion (mild, improved), Edema (improving). Denies: Chest Pain, Palpitations Gastrointestinal: Denies: Abdominal Pain, Constipation, Diarrhea, Nausea, Vomiting Genitourinary: Denies: Dysuria, Frequency, Burning, Urgency Skin: Reports: No Symptoms Neurological: Reports: No Symptoms Psychiatric: Reports: No Symptoms - Patient Data Vitals - Most Recent: Last Vital Signs Temp 97.5 F 11/11/20 06:34 Pulse 83 11/11/20 09:12 Resp 20 11/11/20 06:34 BP 134/61 11/11/20 09:12 Pulse Ox 95 11/11/20 06:34 Weight - Most Recent: 295 lb I&O - Last 24 Hours: Intake & Output 11/10/20 11/11/20 11/11/20 22:59 06:59 14:59 Intake Total 150 150 Output Total 1075 825 Balance -925 -675 Lab Results Last 24 Hours: Laboratory Results - last 24 hr 11/10/20 11/10/20 11/10/20 Range/Units 18:30 18:30 22:41 WBC (5.00-10.00) 10^3/uL RBC (4.50-6.00) 10^6/uL Hgb (13.0-17.0) g/dL Hct (40.0-52.0) % MCV (82.0-92.0) fL MCH (27.0-31.0) pg MCHC (32.0-36.0) g/dL RDW (11.5-14.5) % Plt Count (150-400) 10^3/uL MPV (7.4-10.4) fL Immature Gran % (Auto) (0.0-5.0) % Neut % (Auto) (50.0-70.0) % Lymph % (Auto) (20.0-40.0) % [place] % (Auto) (2.0-8.0) % Eos % (Auto) (1.0-3.0) % Baso % (Auto) (0.0-1.0) % Neut # (Auto) (2.50-7.00) 10^3/uL Lymph # (Auto) (1.00-4.00) 10^3/uL [place] # (Auto) (0.10-0.80) 10^3/uL Eos # (Auto) (0.10-0.30) 10^3/uL Baso # (Auto) (0.00-0.10) 10^3/uL Immature Gran # (Auto) (0.00-0.50) 10^3/uL Sodium (136-145) mmol/L Potassium (3.5-5.1) mmol/L Chloride (98-107) mmol/L Carbon Dioxide (21.0-32.0) mmol/L Anion Gap (5-15) mmol/L BUN (7-18) mg/dL Creatinine (0.51-1.17) mg/dL Est Cr Clr Drug Dosing mL/min Estimated GFR (MDRD) mL/min Glucose (70-140) mg/dL POC Glucose 150 H 168 H (74-106) mg/dl Calcium (8.7-10.3) mg/dL Total Bilirubin (0.2-1.0) mg/dL AST (15-37) U/L ALT (14-63) U/L Alkaline Phosphatase (46-116) U/L Troponin I < 0.017 (0.000-0.056) ng/mL Total Protein (6.4-8.2) g/dL Albumin (3.40-5.00) g/dL 11/11/20 11/11/20 Range/Units 06:58 06:58 WBC 4.74 L (5.00-10.00) 10^3/uL RBC 3.19 L (4.50-6.00) 10^6/uL Hgb 8.7 L (13.0-17.0) g/dL Hct 27.4 L (40.0-52.0) % MCV 85.9 (82.0-92.0) fL MCH 27.3 (27.0-31.0) pg MCHC 31.8 L (32.0-36.0) g/dL RDW 15.7 H (11.5-14.5) % Plt Count 93 L (150-400) 10^3/uL MPV 9.4 (7.4-10.4) fL Immature Gran % (Auto) 0.0 (0.0-5.0) % Neut % (Auto) 64.2 (50.0-70.0) % Lymph % (Auto) 21.5 (20.0-40.0) % [place] % (Auto) 10.1 H (2.0-8.0) % Eos % (Auto) 3.8 H (1.0-3.0) % Baso % (Auto) 0.4 (0.0-1.0) % Neut # (Auto) 3.04 (2.50-7.00) 10^3/uL Lymph # (Auto) 1.02 (1.00-4.00) 10^3/uL [place] # (Auto) 0.48 (0.10-0.80) 10^3/uL Eos # (Auto) 0.18 (0.10-0.30) 10^3/uL Baso # (Auto) 0.02 (0.00-0.10) 10^3/uL Immature Gran # (Auto) 0.00 (0.00-0.50) 10^3/uL Sodium 142 (136-145) mmol/L Potassium 4.3 (3.5-5.1) mmol/L Chloride 106 (98-107) mmol/L Carbon Dioxide 24.0 (21.0-32.0) mmol/L Anion Gap 16.3 H (5-15) mmol/L BUN 21 H (7-18) mg/dL Creatinine 1.40 H (0.51-1.17) mg/dL Est Cr Clr Drug Dosing 55.49 mL/min Estimated GFR (MDRD) 50 mL/min Glucose 106 (70-140) mg/dL POC Glucose (74-106) mg/dl Calcium 8.7 (8.7-10.3) mg/dL Total Bilirubin 0.5 (0.2-1.0) mg/dL AST 11 L (15-37) U/L ALT 19 (14-63) U/L Alkaline Phosphatase 66 (46-116) U/L Troponin I (0.000-0.056) ng/mL Total Protein 6.6 (6.4-8.2) g/dL Albumin 3.32 L (3.40-5.00) g/dL Med Orders - Current: Current Medications Acetaminophen (Acetaminophen 500 Mg Tab) 500 mg PO Q6H PRN PRN Reason: Pain Atropine Sulfate (Atropine 0.1 Mg/Ml 10 Ml Syringe) 0 mg IVPUSH ASDIRECTED PRN PRN Reason: Heart. Carvedilol (Carvedilol 12.5 Mg Tab Own Med) 12.5 mg PO BIDMEALS [facility] Last Admin: 11/11/20 09:12 Dose: 12.5 mg Documented by: Dextrose/Water (50% Dextrose In Water 50 Ml Syringe) 50 ml IV ASDIRECTED PRN PRN Reason: Hypoglycemia Epinephrine HCl (Epinephrine 1:10,000 1 Mg/10 Ml Syringe) 1 mg IVPUSH ASDIRECTED PRN PRN Reason: Heart. Furosemide (Furosemide 40 Mg/4 Ml Vial) 40 mg IVPUSH BIDDIURETIC [facility] Last Admin: 11/11/20 09:15 Dose: 40 mg Documented by: Glucagon (Glucagon,Human Recombinant 1 Mg Vial) 1 mg IM ASDIRECTED PRN PRN Reason: Hypoglycemia Insulin Aspart (Insulin Aspart 100 Units/Ml 3 Ml Pen Own Med) 0 unit SUBCUT WITHMEALSANDBED [facility]; Protocol Last Admin: 11/11/20 08:12 Dose: Not Given Documented by: Insulin Glargine (Lantus 100 Units/Ml 3 Ml Pen Own Med) 0 units SUBCUT BEDTIME [facility] Last Admin: 11/10/20 22:43 Dose: 30 unit Documented by: Lidocaine HCl (Lidocaine 2% 100 Mg/5 Ml Syringe) 0 mg IVPUSH ASDIRECTED PRN PRN Reason: Heart. Liraglutide (Victoza 18mg/3ml Pen Own Med) 1.8 mg SUBCUT DAILY [facility] Last Admin: 11/11/20 09:15 Dose: 1.8 mg Documented by: Nitroglycerin (Nitroglycerin 0.4 Mg Tab.Sl) 0.4 mg SL ASDIRECTED PRN PRN Reason: Heart. Metformin Hcl 1,000 (Mg Own Med) 0 mg PO BIDMEALS [facility] Last Admin: 11/11/20 09:13 Dose: 1,000 mg Documented by: Omeprazole (Omeprazole 20 Mg Cap.Cr Own Med) 20 mg PO ACBREAKFAST [facility] Last Admin: 11/11/20 08:14 Dose: 20 mg Documented by: Atorvastatin 80 Mg (Tab Own Med) 0 each PO BEDTIME [facility] Last Admin: 11/10/20 22:47 Dose: 1 each Documented by: Potassium Chloride (Potassium Chloride 10 Meq Tab.Er Own Med) 10 meq PO DAILY [facility] Last Admin: 11/11/20 09:13 Dose: 10 meq Documented by: Sodium Chloride (Sodium Chloride 0.9% 10 Ml Syringe) 10 ml FLUSH ,, PRN PRN Reason: keep vein open Tamsulosin HCl (Tamsulosin 0.4 Mg Cap.Er) 0.4 mg PO PCBREAKFAST [facility] Last Admin: 11/11/20 09:14 Dose: 0.4 mg Documented by: Trimethoprim/Sulfamethoxazole (Sulfamethoxazole/Trimethoprim 800-160 Mg Tab Own Med) 1 tab PO DAILY [facility] Last Admin: 11/11/20 09:14 Dose: 1 tab Documented by: Vitamin B Complex (Vitamin B Complex Tab Own Med) 1 each PO DAILY [facility] Last Admin: 11/11/20 09:14 Dose: 1 each Documented by: - Exam General: Alert, Oriented, Other (obese) Neck: Supple, No JVD Lungs: Clear to Auscultation, Normal Respiratory Effort Cardiovascular: Regular Rate, Regular Rhythm GI/Abdominal Exam: Normal Bowel Sounds, Soft, Non-Tender (Male) Exam: Deferred Back Exam: Normal Inspection Extremities: Pedal Edema (mild 1+ pitting edema to BLE) Skin: Warm, Dry, Intact Wound/Incisions: Healing Well Neurological: No New Focal Deficit Psy/Mental Status: Alert - Patient Data Lab Results Last 24 hrs: Laboratory Results - last 24 hr 11/10/20 11/10/20 11/10/20 Range/Units 18:30 18:30 22:41 WBC (5.00-10.00) 10^3/uL RBC (4.50-6.00) 10^6/uL Hgb (13.0-17.0) g/dL Hct (40.0-52.0) % MCV (82.0-92.0) fL MCH (27.0-31.0) pg MCHC (32.0-36.0) g/dL RDW (11.5-14.5) % Plt Count (150-400) 10^3/uL MPV (7.4-10.4) fL Immature Gran % (Auto) (0.0-5.0) % Neut % (Auto) (50.0-70.0) % Lymph % (Auto) (20.0-40.0) % [place] % (Auto) (2.0-8.0) % Eos % (Auto) (1.0-3.0) % Baso % (Auto) (0.0-1.0) % Neut # (Auto) (2.50-7.00) 10^3/uL Lymph # (Auto) (1.00-4.00) 10^3/uL [place] # (Auto) (0.10-0.80) 10^3/uL Eos # (Auto) (0.10-0.30) 10^3/uL Baso # (Auto) (0.00-0.10) 10^3/uL Immature Gran # (Auto) (0.00-0.50) 10^3/uL Sodium (136-145) mmol/L Potassium (3.5-5.1) mmol/L Chloride (98-107) mmol/L Carbon Dioxide (21.0-32.0) mmol/L Anion Gap (5-15) mmol/L BUN (7-18) mg/dL Creatinine (0.51-1.17) mg/dL Est Cr Clr Drug Dosing mL/min Estimated GFR (MDRD) mL/min Glucose (70-140) mg/dL POC Glucose 150 H 168 H (74-106) mg/dl Calcium (8.7-10.3) mg/dL Total Bilirubin (0.2-1.0) mg/dL AST (15-37) U/L ALT (14-63) U/L Alkaline Phosphatase (46-116) U/L Troponin I < 0.017 (0.000-0.056) ng/mL Total Protein (6.4-8.2) g/dL Albumin (3.40-5.00) g/dL 11/11/20 11/11/20 Range/Units 06:58 06:58 WBC 4.74 L (5.00-10.00) 10^3/uL RBC 3.19 L (4.50-6.00) 10^6/uL Hgb 8.7 L (13.0-17.0) g/dL Hct 27.4 L (40.0-52.0) % MCV 85.9 (82.0-92.0) fL MCH 27.3 (27.0-31.0) pg MCHC 31.8 L (32.0-36.0) g/dL RDW 15.7 H (11.5-14.5) % Plt Count 93 L (150-400) 10^3/uL MPV 9.4 (7.4-10.4) fL Immature Gran % (Auto) 0.0 (0.0-5.0) % Neut % (Auto) 64.2 (50.0-70.0) % Lymph % (Auto) 21.5 (20.0-40.0) % [place] % (Auto) 10.1 H (2.0-8.0) % Eos % (Auto) 3.8 H (1.0-3.0) % Baso % (Auto) 0.4 (0.0-1.0) % Neut # (Auto) 3.04 (2.50-7.00) 10^3/uL Lymph # (Auto) 1.02 (1.00-4.00) 10^3/uL [place] # (Auto) 0.48 (0.10-0.80) 10^3/uL Eos # (Auto) 0.18 (0.10-0.30) 10^3/uL Baso # (Auto) 0.02 (0.00-0.10) 10^3/uL Immature Gran # (Auto) 0.00 (0.00-0.50) 10^3/uL Sodium 142 (136-145) mmol/L Potassium 4.3 (3.5-5.1) mmol/L Chloride 106 (98-107) mmol/L Carbon Dioxide 24.0 (21.0-32.0) mmol/L Anion Gap 16.3 H (5-15) mmol/L BUN 21 H (7-18) mg/dL Creatinine 1.40 H (0.51-1.17) mg/dL Est Cr Clr Drug Dosing 55.49 mL/min Estimated GFR (MDRD) 50 mL/min Glucose 106 (70-140) mg/dL POC Glucose (74-106) mg/dl Calcium 8.7 (8.7-10.3) mg/dL Total Bilirubin 0.5 (0.2-1.0) mg/dL AST 11 L (15-37) U/L ALT 19 (14-63) U/L Alkaline Phosphatase 66 (46-116) U/L Troponin I (0.000-0.056) ng/mL Total Protein 6.6 (6.4-8.2) g/dL Albumin 3.32 L (3.40-5.00) g/dL Result Diagrams: 11/13/20 07:15 11/13/20 07:15 Sepsis Event Note - Evaluation Sepsis Screening Result: No Definite Risk - Focused Exam Vital Signs: Vital Signs Temp Pulse Pulse Resp BP BP Pulse Ox 11/11/20 09:12 83 134/61 11/11/20 06:34 97.5 F 79 20 103/54 L 95 11/11/20 03:00 97.9 F 78 20 121/63 96 - Problem List Review Problem List Initiated/Reviewed/Updated: Yes - Assessment Assessment:: This is a 70 year old male who [facility] for concerns of fluid retention and worsening SOB. From 11/08/20 - 11/10/20 patient was admitted to the [facility] for near syncope, dehydration, SOB. He receive IVF replacement and 1 unit of PRBCs for anemia secondary to recent acute blood loss. He was discharged home in stable condition but presented to the clinic a few hours after discharge with reportedly worsening of swelling and shortness of breath on exertion. Patient states he did not notice any fluid retention until after he had returned home. He states that he normally weighs around 280 lb on his home scale. [facility] records note a variable baseline weight of around 285-294 recently. Admission weight of 299 lb. Chest x-ray was done without evidence of acute cardiopulmonary abnormality. BNP was done and was normal. EKG done with no acute st/t wave changes compared to last EKG. Troponin negative. Patient was admitted for IV diuresis and received Lasix 40mg IV BID. Patient is on Lasix at home taking 20 mg PO daily. Primary hospital problems: # Fluid retention - no evidence of CHF: normal chest x-ray. normal BNP. no orthopnea or PND. no JVD - Patient reports improving symptomatology. Patient still notes some swelling and mild, but improving exertional SOB. No chest pain or palpitations. - Weight down 4 pounds from admission to 295 lb, which is likely nearing baseline per review of [facility] records. - mild increase in creatinine though overall stable. potassium stable. # Anemia, blood loss - stable, continue monitoring. - asymptomatic at this time. no active bleeding. Hgb >8. Pertinent Recent History: 11/06/20- evaluated by Dr. Catherine Sotelo who consulted cardiology regrading his classic stable angina pectoris and low hgb. he was given 1 unit PRBC on 11/07/20. 10/26/20 - 10/28/[address] [facility] for Acute blood loss anemia, melanotic stools, barretts esophagus, iron deficiency, elevated creatinine, HFrEF, and mild aortic stenosis. - EGD medium sized hiatal hernia, White's, non-bleeding erosive gastropathy. - colonoscopy with poor prep however negative with repeat recommended in 1 year. recommended to hold both xarelto and plavix for 2 weeks post discharge and starting on omeprazole 20mg BID. Chronic conditions: -T2DM: On metformin 1000 mg BID, Victoza 1.8 mg SQ daily, novolog SS, Lantus 46 units daily. -CAD, s/p CABG x 3: On coreg 12.5 mg BID, nitroglycerin 0.4 mg SL prn. -Chronic systolic HF: On lasix 20 mg daily. ECHO 10/2020 noted EF 55%, mild aortic stenosis, mild LVH, grade 2 diastolic dysfunction, normal systolic function. -Heart murmur. -HTN: On losartan-HCTZ 100-25 mg daily. -History of DVT/PE, IVC filter in place. -Hypokalemia: On potassium 10 mEq daily. Potassium normal today. Plan of care/Disposition: - up ambulating in [place] today - IV lasix 20mg x 1 this afternoon per instruction by Dr. Catherine Sotelo - recheck renal and electrolytes in AM - anticipate Discharge tomorrow Code status: Full
[2020-11-11] MEDS: LANTUS 100 UNIT/ML SUBCUT SCH (21:18)
[2020-11-11] MEDS: ATORVASTATIN 80 MG PO SCH (21:21)
[2020-11-12] MEDS: Omeprazole 20 MG Cap.CR **OWN MED PO SCH (07:56)
[2020-11-12] MEDS: METFORMIN HCL 1000 MG PO SCH ×2 (07:56→17:49)
[2020-11-12] MEDS: Carvedilol 12.5 MG Tab **OWN MED PO SCH ×2 (07:57→17:58)
[2020-11-12] MEDS: Insulin Aspart 100 Units/ML 3 ML Pen **OWN MED SUBCUT SCH ×5 (07:57→22:44)
[2020-11-12 08:13] LABS: ANION GAP 14.2 mmol/L (5-15)
[2020-11-12] MEDS: Furosemide 40 MG/4 ML VIAL IVPUSH SCH (09:12)
[2020-11-12] MEDS: SULFAMETHOXAZOLE PO SCH (09:12)
[2020-11-12] MEDS: TRIMETHOPRIM PO SCH (09:12)
[2020-11-12] MEDS: VITAMIN B COMPLEX PO SCH (09:12)
[2020-11-12] MEDS: VICTOZA 18 MG/3 ML SUBCUT SCH (09:13)
[2020-11-12] MEDS: Tamsulosin 0.4 MG Cap.ER PO SCH (09:13)
[2020-11-12] MEDS: Potassium Chloride 10 MEQ Tab.ER **OWN MED PO SCH (09:13)
--- NOTE | 2020-11-12 11:19 | PCM.DCSUM1 ---
Discharge Summary - Discharge Data Discharge Date: 11/12/20 Discharge Disposition: Home, Self-Care 01 Condition: Good - Referral to Home Health Primary Care Physician: Kizzy Sotelo MD - Discharge Diagnosis/Problem(s) (1) Fluid retention SNOMED Code(s): 89262005 ICD Code: R60.9 - EDEMA, UNSPECIFIED Status: Acute Current Visit: Yes (2) SOB (shortness of breath) SNOMED Code(s): 522110962 ICD Code: R06.02 - SHORTNESS OF BREATH Status: Acute Current Visit: No - Patient Summary/Data Hospital Course: Date of admission: 11/10/20 Date of discharge: 11/12/20 Diagnoses: # Fluid retention, improved # Exertional SOB, improved # Anemia, improving # Thrombocytopenia, improving # Elevated creatinine, stable # Deconditioning Hospital course: This is a 70 year old male who was admitted to the [facility] on 11/10/20 - 11/12/20 from an [facility] by Dr. Catherine Sotelo for concerns of fluid retention and worsening SOB. From 11/08/20 - 11/10/20 patient was hospitalized at the [facility] for near syncope, dehydration, SOB. He receive IVF replacement and 1 unit of PRBCs for anemia secondary to recent acute blood loss. He was discharged home in stable condition but presented to the clinic a few hours after discharge with reportedly worsening of swelling and shortness of breath. Patient states he did not notice any fluid retention until after he had returned home. He reportedly normally weighs around 280 lb. [facility] records note a variable baseline weight of around 285-294 recently. Admission weight of 299 lb. Chest x-ray was done without evidence of acute cardiopulmonary abnormality. BNP was done and was normal. EKG done with no acute st/t wave changes compared to last EKG. Troponin negative. Patient was admitted for IV diuresis and received Lasix 40mg IV BID. Overall hospitalization unremarkable. Patient weight down to 294 with IV diuresis with improvement in symptoms though patient still feels like he has fluid on the thighs. Creatinine slightly increased with Iv diuresis and 1.53 at discharge, GFR 45. Potassium levels normal. Hgb at discharge 9.6. Thrombocytopenia as also noted on recent labs improving at 98,000 on discharge. Patient was noted to be complaining of some scrotal tenderness and low back pain which he states is not new and has not changed. There was no significant scrotal swelling. no evidence of inguinal hernia on examination. no testicular pain or swelling. Patient consideration for outpatient ultrasound to further evaluate these concerns. Patient also expressed concerns regarding living situation in which he has difficulty at home getting into and out of the house due to stairs. Lengthy discussion had with patient regarding consideration for short term placement at a local SNF for rehabilitation. Patients was open to this however patient is not interested. He states they have family assistance and are able to make modifications to allow him to be on one level of the home. Will need further evaluation of living situation at follow-up. Pertinent Recent History: 10/26/20 - 10/28/20 hospitalized at [facility] for Acute blood loss anemia, melanotic stools, barretts esophagus, iron deficiency, elevated creatinine, HFrEF, and mild aortic stenosis. - EGD medium sized hiatal hernia, White's, non-bleeing erosive gastropathy. - colonoscopy with poor prep however negative with repeat recommended in 1 year. recommended to hold both xarelto and plavix for 2 weeks post discharge and starting on omeprazole 20mg BID. 11/06/20- evaluated by Dr. Ctaherine Sotelo who consulted cardiology regrading his classic stable angina pectoris and low hgb. he was given 1 unit PRBC on 11/07/20. 11/08/20 - 11/10/20: admitted to [facility] for syncope, dehydration, and SOB as noted above. Discharge Recommendations: - Follow-up with Dr. Catherine Sotelo tomorrow as scheduled - Hold Xarelto and Plavix until follow-up per Dr. Alexander. - Increase/change Lasix to 40mg orally daily in the AM and 20mg orally daily in the afternoon Per Dr. Alexander - start potassium supplementation daily. prescription sent. - Continue to avoid NSAIDs: aspirin, ibuprofen, aleve, - It is OK to take tylenol as needed - recheck labs tomorrow at follow-up Additional considerations for follow-up: - Consider scrotal/testicular ultrasound - Recheck labs - Consider restarting xarelto/plavix. (S)He was continued on other medications for chronic medical conditions with the exception of . (S)He had excellent clinical improvement throughout hospitalization and was deemed ready for discharge back to . (S)He was discharged on prior home medications. (S)He will follow-up with PCP on . Follow-up items underlined below in problem-based assessment and plan: - Discharge Plan Prescriptions/Med Rec: Potassium Chloride [Klor-Con 10] 10 meq PO DAILY #30 tab.er Home Medications: Home Meds metFORMIN [Glucophage] 1,000 mg PO BID 09/12/14 [History] Insulin Aspart [NovoLOG] 0 unit SUBCUT QIDACANDBED PRN 08/02/16 [History] atorvaSTATin [Lipitor] 80 mg PO DAILY 09/19/16 [History] Amitriptyline [Elavil] 25 mg PO BEDTIME 02/18/19 [History] Finasteride 5 mg PO DAILY 02/18/19 [History] Nitroglycerin 0.4 mg SL ASDIRECTED PRN 02/18/19 [History] Tamsulosin HCl 0.4 mg PO DAILY 02/18/19 [History] Acetaminophen 500 mg PO Q4H PRN 04/15/19 [History] Liraglutide [Victoza] 1.8 mg SUBCUT DAILY 04/15/19 [History] Clindamycin Phosphate [Cleocin T 1% Lotion] 1 applic TOP BID PRN 12/23/19 [History] Vitamin B Complex 1 cap PO DAILY 12/23/19 [History] Sulfamethoxazole/Trimethoprim [Bactrim Ds Tablet] 1 tab PO DAILY 12/24/19 [History] Urea/Hydrophilic Cream [Betamide] 1 applic TOP BID PRN 12/24/19 [History] Lactobacillus 3/Fos/Pantethine [Probiotic & Acidophilus] 1 cap PO DAILY 11/08/20 [History] Losartan/Hydrochlorothiazide [Hyzaar 100-25 Tablet] 1 tab PO DAILY 11/08/20 [History] Omeprazole 20 mg PO BIDAC 11/08/20 [History] Insulin Glarg,Human.Rec.Analog [Lantus Solostar] 30 units SQ BEDTIME #0 11/10/20 [Rx] carvediloL [Carvedilol] 6.25 mg PO BID #1 11/10/20 [Rx] Furosemide [Lasix] 20 mg PO 1400 tablet 11/12/20 [Rx] Potassium Chloride [Klor-Con 10] 10 meq PO DAILY #30 tab.er 11/12/20 [Rx] Referrals: Kizzy Sotelo MD [Primary Care Provider] - 11/13/20 - General Info Date of Service: 11/12/20 Functional Status: Reports: Pain Controlled - Review of Systems General: Reports: Weakness (deconditioning). Denies: Fever, Chills Pulmonary: Denies: Shortness of Breath, Cough Cardiovascular: Reports: Dyspnea on Exertion, Edema (thighs). Denies: Chest Pain, Palpitations, Orthopnea, PND, Lightheadedness Gastrointestinal: Denies: Abdominal Pain, Diarrhea, Nausea, Vomiting Genitourinary: Reports: Other (right scrotal pain, swelling) Musculoskeletal: Reports: Back Pain (right lower back) Neurological: Reports: No Symptoms Psychiatric: Reports: No Symptoms - Patient Data Vitals - Most Recent: Last Vital Signs Temp 97.5 F 11/12/20 06:27 Pulse 82 11/12/20 07:57 Resp 18 11/12/20 06:27 BP 140/71 11/12/20 07:57 Pulse Ox 95 11/12/20 06:27 Weight - Most Recent: 293 lb 7 oz I&O - Last 24 hours: Intake & Output 11/11/20 11/12/20 11/12/20 22:59 06:59 14:59 Intake Total 660 300 Output Total 1350 790 Balance -690 -490 Lab Results - Last 24 hrs: Laboratory Results - last 24 hr 11/11/20 11/11/20 11/11/20 Range/Units 08:09 11:37 17:22 Sodium (136-145) mmol/L Potassium (3.5-5.1) mmol/L Chloride (98-107) mmol/L Carbon Dioxide (21.0-32.0) mmol/L Anion Gap (5-15) mmol/L BUN (7-18) mg/dL Creatinine (0.51-1.17) mg/dL Est Cr Clr Drug Dosing mL/min Estimated GFR (MDRD) mL/min Glucose (70-140) mg/dL POC Glucose 114 H 128 H 122 H (74-106) mg/dl Calcium (8.7-10.3) mg/dL 11/11/20 11/12/20 11/12/20 Range/Units 21:17 07:30 07:55 Sodium 141 (136-145) mmol/L Potassium 4.3 (3.5-5.1) mmol/L Chloride 104 (98-107) mmol/L Carbon Dioxide 27.1 (21.0-32.0) mmol/L Anion Gap 14.2 (5-15) mmol/L BUN 24 H (7-18) mg/dL Creatinine 1.53 H (0.51-1.17) mg/dL Est Cr Clr Drug Dosing 50.77 mL/min Estimated GFR (MDRD) 45 mL/min Glucose 105 (70-140) mg/dL POC Glucose 126 H 101 (74-106) mg/dl Calcium 9.0 (8.7-10.3) mg/dL Med Orders - Current: Current Medications Acetaminophen (Acetaminophen 500 Mg Tab) 500 mg PO Q6H PRN PRN Reason: Pain Last Admin: 11/11/20 20:10 Dose: 500 mg Documented by: Atropine Sulfate (Atropine 0.1 Mg/Ml 10 Ml Syringe) 0 mg IVPUSH ASDIRECTED PRN PRN Reason: Heart. Carvedilol (Carvedilol 12.5 Mg Tab Own Med) 12.5 mg PO BIDMEALS [facility] Last Admin: 11/12/20 07:57 Dose: 12.5 mg Documented by: Dextrose/Water (50% Dextrose In Water 50 Ml Syringe) 50 ml IV ASDIRECTED PRN PRN Reason: Hypoglycemia Epinephrine HCl (Epinephrine 1:10,000 1 Mg/10 Ml Syringe) 1 mg IVPUSH ASDIRECTED PRN PRN Reason: Heart. Furosemide (Furosemide 40 Mg/4 Ml Vial) 20 mg IVPUSH BID [facility] Last Admin: 11/12/20 09:12 Dose: 20 mg Documented by: Glucagon (Glucagon,Human Recombinant 1 Mg Vial) 1 mg IM ASDIRECTED PRN PRN Reason: Hypoglycemia Insulin Aspart (Insulin Aspart 100 Units/Ml 3 Ml Pen Own Med) [facility]; Protocol Last Admin: 11/12/20 07:57 Dose: Not Given Documented by: Insulin Glargine (Lantus 100 Units/Ml 3 Ml Pen Own Med) 0 units SUBCUT BEDTIME [facility] Last Admin: 11/11/20 21:18 Dose: 30 unit Documented by: Lidocaine HCl (Lidocaine 2% 100 Mg/5 Ml Syringe) 0 mg IVPUSH ASDIRECTED PRN PRN Reason: Heart. Liraglutide (Victoza 18mg/3ml Pen Own Med) 1.8 mg SUBCUT DAILY [facility] Last Admin: 11/12/20 09:13 Dose: 1.8 mg Documented by: Nitroglycerin (Nitroglycerin 0.4 Mg Tab.Sl) 0.4 mg SL ASDIRECTED PRN PRN Reason: Heart. Metformin Hcl 1,000 (Mg Own Med) 0 mg PO BIDMEALS [facility] Last Admin: 11/12/20 07:56 Dose: 1,000 mg Documented by: Omeprazole (Omeprazole 20 Mg Cap.Cr Own Med) 20 mg PO ACBREAKFAST [facility] Last Admin: 11/12/20 07:56 Dose: 20 mg Documented by: Atorvastatin 80 Mg (Tab Own Med) 0 each PO BEDTIME [facility] Last Admin: 11/11/20 21:21 Dose: 1 each Documented by: Potassium Chloride (Potassium Chloride 10 Meq Tab.Er Own Med) 10 meq PO DAILY [facility] Last Admin: 11/12/20 09:13 Dose: 10 meq Documented by: Sodium Chloride (Sodium Chloride 0.9% 10 Ml Syringe) 10 ml FLUSH 06,15, PRN PRN Reason: keep vein open Tamsulosin HCl (Tamsulosin 0.4 Mg Cap.Er) 0.4 mg PO PCBREAKFAST [facility] Last Admin: 11/12/20 09:13 Dose: 0.4 mg Documented by: Trimethoprim/Sulfamethoxazole (Sulfamethoxazole/Trimethoprim 800-160 Mg Tab Own Med) 1 tab PO DAILY [facility] Last Admin: 11/12/20 09:12 Dose: 1 tab Documented by: Vitamin B Complex (Vitamin B Complex Tab Own Med) 1 each PO DAILY [facility] Last Admin: 11/12/20 09:12 Dose: 1 each Documented by: Discontinued Medications Furosemide (Furosemide 40 Mg/4 Ml Vial) 40 mg IVPUSH BIDDIURETIC [facility] Last Admin: 11/11/20 09:15 Dose: 40 mg Documented by: - Exam Quality Assessment: Denies: Supplemental Oxygen General: Reports: Alert, Oriented Neck: Reports: Supple, No JVD Lungs: Reports: Clear to Auscultation, Normal Respiratory Effort Cardiovascular: Reports: Regular Rate, Regular Rhythm, Murmurs GI/Abdominal Exam: Normal Bowel Sounds, Soft, Non-Tender, Other (rounded abdomen) (Male) Exam: Cremasteric Reflex (normal cremasteric), Scrotum Tenderness (R), Other (inguinal tenderness to the right). No: Hernia, Scrotal Swelling, Scrotum Tenderness (L), Testicular Mass, Testicular Tenderness (L), Urethral Discharge Rectal (Males) Exam: Deferred Back Exam: Reports: Normal Inspection, Other (pain with palpation to the right lower back/SI joint ). Denies: CVA Tenderness (L), CVA Tenderness (R), Muscle Spasm Extremities: Other (trace pretibial/ankle nonpitting edema. improved.) Skin: Reports: Warm, Dry, Intact Neurological: Reports: No New Focal Deficit Psy/Mental Status: Reports: Alert, Anxious
[2020-11-12] MEDS ORDERED: Furosemide 20 MG Tab PO SCH (14:00)
--- NOTE | 2020-11-12 17:38 | PCM.PN ---
- General Info Date of Service: 11/12/20 - Review of Systems General: Reports: Chills HEENT: Reports: No Symptoms Pulmonary: Denies: Shortness of Breath, Pleuritic Chest Pain, Cough, Sputum, Wheezing Cardiovascular: Reports: Dyspnea on Exertion (improving), Edema. Denies: Chest Pain, Palpitations, Orthopnea, PND Gastrointestinal: Reports: Nausea, Vomiting (phlegm). Denies: Abdominal Pain, Constipation, Diarrhea, Difficulty Swallowing Genitourinary: Reports: No Symptoms Musculoskeletal: Reports: Back Pain (low back ) Skin: Reports: No Symptoms Neurological: Denies: Dizziness, Headache, Numbness Psychiatric: Reports: No Symptoms - Patient Data Vitals - Most Recent: Last Vital Signs Temp 97.6 F 11/12/20 15:00 Pulse 92 11/12/20 15:00 Resp 20 11/12/20 15:00 BP 147/70 H 11/12/20 15:00 Pulse Ox 95 11/12/20 15:00 Orthostatic Blood Pressure [ 125/60 Standing] Orthostatic Blood Pressure [ 158/58 Sitting] Orthostatic Blood Pressure [ 147/70 Supine] Weight - Most Recent: 293 lb 7 oz I&O - Last 24 Hours: Intake & Output 11/12/20 11/12/20 11/12/20 06:59 14:59 22:59 Intake Total 300 600 Output Total 790 1750 Balance -490 -1150 Lab Results Last 24 Hours: Laboratory Results - last 24 hr 11/11/20 11/12/20 11/12/20 Range/Units 21:17 07:30 07:30 WBC 5.38 (5.00-10.00) 10^3/uL RBC 3.46 L (4.50-6.00) 10^6/uL Hgb 9.5 L (13.0-17.0) g/dL Hct 29.3 L (40.0-52.0) % MCV 84.7 (82.0-92.0) fL MCH 27.5 (27.0-31.0) pg MCHC 32.4 (32.0-36.0) g/dL RDW 15.5 H (11.5-14.5) % Plt Count 98 L (150-400) 10^3/uL MPV 10.4 (7.4-10.4) fL Immature Gran % (Auto) 0.4 (0.0-5.0) % Neut % (Auto) 65.9 (50.0-70.0) % Lymph % (Auto) 20.4 (20.0-40.0) % [place] % (Auto) 9.1 H (2.0-8.0) % Eos % (Auto) 3.5 H (1.0-3.0) % Baso % (Auto) 0.7 (0.0-1.0) % Neut # (Auto) 3.54 (2.50-7.00) 10^3/uL Lymph # (Auto) 1.10 (1.00-4.00) 10^3/uL [place] # (Auto) 0.49 (0.10-0.80) 10^3/uL Eos # (Auto) 0.19 (0.10-0.30) 10^3/uL Baso # (Auto) 0.04 (0.00-0.10) 10^3/uL Immature Gran # (Auto) 0.02 (0.00-0.50) 10^3/uL Sodium 141 (136-145) mmol/L Potassium 4.3 (3.5-5.1) mmol/L Chloride 104 (98-107) mmol/L Carbon Dioxide 27.1 (21.0-32.0) mmol/L Anion Gap 14.2 (5-15) mmol/L BUN 24 H (7-18) mg/dL Creatinine 1.53 H (0.51-1.17) mg/dL Est Cr Clr Drug Dosing 50.77 mL/min Estimated GFR (MDRD) 45 mL/min Glucose 105 (70-140) mg/dL POC Glucose 126 H (74-106) mg/dl Calcium 9.0 (8.7-10.3) mg/dL 11/12/20 11/12/20 11/12/20 Range/Units 07:55 11:43 14:23 WBC (5.00-10.00) 10^3/uL RBC (4.50-6.00) 10^6/uL Hgb (13.0-17.0) g/dL Hct (40.0-52.0) % MCV (82.0-92.0) fL MCH (27.0-31.0) pg MCHC (32.0-36.0) g/dL RDW (11.5-14.5) % Plt Count (150-400) 10^3/uL MPV (7.4-10.4) fL Immature Gran % (Auto) (0.0-5.0) % Neut % (Auto) (50.0-70.0) % Lymph % (Auto) (20.0-40.0) % [place] % (Auto) (2.0-8.0) % Eos % (Auto) (1.0-3.0) % Baso % (Auto) (0.0-1.0) % Neut # (Auto) (2.50-7.00) 10^3/uL Lymph # (Auto) (1.00-4.00) 10^3/uL [place] # (Auto) (0.10-0.80) 10^3/uL Eos # (Auto) (0.10-0.30) 10^3/uL Baso # (Auto) (0.00-0.10) 10^3/uL Immature Gran # (Auto) (0.00-0.50) 10^3/uL Sodium (136-145) mmol/L Potassium (3.5-5.1) mmol/L Chloride (98-107) mmol/L Carbon Dioxide (21.0-32.0) mmol/L Anion Gap (5-15) mmol/L BUN (7-18) mg/dL Creatinine (0.51-1.17) mg/dL Est Cr Clr Drug Dosing mL/min Estimated GFR (MDRD) mL/min Glucose (70-140) mg/dL POC Glucose 101 143 H 166 H (74-106) mg/dl Calcium (8.7-10.3) mg/dL Med Orders - Current: Current Medications Acetaminophen (Acetaminophen 500 Mg Tab) 500 mg PO Q6H PRN PRN Reason: Pain Last Admin: 11/11/20 20:10 Dose: 500 mg Documented by: Atropine Sulfate (Atropine 0.1 Mg/Ml 10 Ml Syringe) 0 mg IVPUSH ASDIRECTED PRN PRN Reason: Heart. Carvedilol (Carvedilol 12.5 Mg Tab Own Med) 12.5 mg PO BIDMEALS [facility] Last Admin: 11/12/20 07:57 Dose: 12.5 mg Documented by: Dextrose/Water (50% Dextrose In Water 50 Ml Syringe) 50 ml IV ASDIRECTED PRN PRN Reason: Hypoglycemia Epinephrine HCl (Epinephrine 1:10,000 1 Mg/10 Ml Syringe) 1 mg IVPUSH ASDIRECTED PRN PRN Reason: Heart. Glucagon (Glucagon,Human Recombinant 1 Mg Vial) 1 mg IM ASDIRECTED PRN PRN Reason: Hypoglycemia Insulin Aspart (Insulin Aspart 100 Units/Ml 3 Ml Pen Own Med) 0 unit SUBCUT WITHMEALSANDBED [facility]; Protocol Last Admin: 11/12/20 11:44 Dose: Not Given Documented by: Insulin Glargine (Lantus 100 Units/Ml 3 Ml Pen Own Med) 0 units SUBCUT BEDTIME [facility] Last Admin: 11/11/20 21:18 Dose: 30 unit Documented by: Lidocaine HCl (Lidocaine 2% 100 Mg/5 Ml Syringe) 0 mg IVPUSH ASDIRECTED PRN PRN Reason: Heart. Liraglutide (Victoza 18mg/3ml Pen Own Med) 1.8 mg SUBCUT DAILY [facility] Last Admin: 11/12/20 09:13 Dose: 1.8 mg Documented by: Nitroglycerin (Nitroglycerin 0.4 Mg Tab.Sl) 0.4 mg SL ASDIRECTED PRN PRN Reason: Heart. Metformin Hcl 1,000 (Mg Own Med) 0 mg PO BIDMEALS [facility] Last Admin: 11/12/20 07:56 Dose: 1,000 mg Documented by: Omeprazole (Omeprazole 20 Mg Cap.Cr Own Med) 20 mg PO ACBREAKFAST [facility] Last Admin: 11/12/20 07:56 Dose: 20 mg Documented by: Atorvastatin 80 Mg (Tab Own Med) 0 each PO BEDTIME [facility] Last Admin: 11/11/20 21:21 Dose: 1 each Documented by: Potassium Chloride (Potassium Chloride 10 Meq Tab.Er Own Med) 10 meq PO DAILY [facility] Last Admin: 11/12/20 09:13 Dose: 10 meq Documented by: Sodium Chloride (Sodium Chloride 0.9% 10 Ml Syringe) 10 ml FLUSH 06,15,23 PRN PRN Reason: keep vein open Tamsulosin HCl (Tamsulosin 0.4 Mg Cap.Er) 0.4 mg PO PCBREAKFAST [facility] Last Admin: 11/12/20 09:13 Dose: 0.4 mg Documented by: Trimethoprim/Sulfamethoxazole (Sulfamethoxazole/Trimethoprim 800-160 Mg Tab Own Med) 1 tab PO DAILY [facility] Last Admin: 11/12/20 09:12 Dose: 1 tab Documented by: Vitamin B Complex (Vitamin B Complex Tab Own Med) 1 each PO DAILY [facility] Last Admin: 11/12/20 09:12 Dose: 1 each Documented by: Discontinued Medications Furosemide (Furosemide 40 Mg/4 Ml Vial) 40 mg IVPUSH BIDDIURETIC [facility] Last Admin: 11/11/20 09:15 Dose: 40 mg Documented by: Furosemide (Furosemide 40 Mg/4 Ml Vial) 20 mg IVPUSH BID [facility] Last Admin: 11/12/20 09:12 Dose: 20 mg Documented by: Furosemide (Furosemide 20 Mg Tab) 20 mg PO 1400 [facility] - Exam Quality Assessment: DVT Prophylaxis. No: Supplemental Oxygen General: Alert, Oriented Neck: Supple, No JVD Lungs: Clear to Auscultation, Normal Respiratory Effort Cardiovascular: Regular Rate, Regular Rhythm, Murmurs (grade 2/6) GI/Abdominal Exam: Normal Bowel Sounds, Soft, Non-Tender, Other (rounded) (Male) Exam: Cremasteric Reflex (normal cremasteric). No: Hernia, Scrotum Tenderness (L), Scrotum Tenderness (R) (inguinal tenderness othe right ), Testicular Mass, Testicular Tenderness (L), Testicular Tenderness (R) Back Exam: Other (mild pain with palaption to the right lower back/ SI joint, SLR negative). No: CVA Tenderness (L), CVA Tenderness (R) Extremities: Pedal Edema (trace pretibial and ankle nonpitting edema) Peripheral Pulses: 2+: Radial (L), Radial (R), Posterior Tibial (L), Posterior Tibial (R), Dorsalis Pedis (L), Dorsalis Pedis (R) Skin: Warm, Dry, Intact Neurological: No New Focal Deficit Psy/Mental Status: Alert - Patient Data Lab Results Last 24 hrs: Laboratory Results - last 24 hr 11/11/20 11/12/20 11/12/20 Range/Units 21:17 07:30 07:30 WBC 5.38 (5.00-10.00) 10^3/uL RBC 3.46 L (4.50-6.00) 10^6/uL Hgb 9.5 L (13.0-17.0) g/dL Hct 29.3 L (40.0-52.0) % MCV 84.7 (82.0-92.0) fL MCH 27.5 (27.0-31.0) pg MCHC 32.4 (32.0-36.0) g/dL RDW 15.5 H (11.5-14.5) % Plt Count 98 L (150-400) 10^3/uL MPV 10.4 (7.4-10.4) fL Immature Gran % (Auto) 0.4 (0.0-5.0) % Neut % (Auto) 65.9 (50.0-70.0) % Lymph % (Auto) 20.4 (20.0-40.0) % [place] % (Auto) 9.1 H (2.0-8.0) % Eos % (Auto) 3.5 H (1.0-3.0) % Baso % (Auto) 0.7 (0.0-1.0) % Neut # (Auto) 3.54 (2.50-7.00) 10^3/uL Lymph # (Auto) 1.10 (1.00-4.00) 10^3/uL [place] # (Auto) 0.49 (0.10-0.80) 10^3/uL Eos # (Auto) 0.19 (0.10-0.30) 10^3/uL Baso # (Auto) 0.04 (0.00-0.10) 10^3/uL Immature Gran # (Auto) 0.02 (0.00-0.50) 10^3/uL Sodium 141 (136-145) mmol/L Potassium 4.3 (3.5-5.1) mmol/L Chloride 104 (98-107) mmol/L Carbon Dioxide 27.1 (21.0-32.0) mmol/L Anion Gap 14.2 (5-15) mmol/L BUN 24 H (7-18) mg/dL Creatinine 1.53 H (0.51-1.17) mg/dL Est Cr Clr Drug Dosing 50.77 mL/min Estimated GFR (MDRD) 45 mL/min Glucose 105 (70-140) mg/dL POC Glucose 126 H (74-106) mg/dl Calcium 9.0 (8.7-10.3) mg/dL 11/12/20 11/12/20 11/12/20 Range/Units 07:55 11:43 14:23 WBC (5.00-10.00) 10^3/uL RBC (4.50-6.00) 10^6/uL Hgb (13.0-17.0) g/dL Hct (40.0-52.0) % MCV (82.0-92.0) fL MCH (27.0-31.0) pg MCHC (32.0-36.0) g/dL RDW (11.5-14.5) % Plt Count (150-400) 10^3/uL MPV (7.4-10.4) fL Immature Gran % (Auto) (0.0-5.0) % Neut % (Auto) (50.0-70.0) % Lymph % (Auto) (20.0-40.0) % [place] % (Auto) (2.0-8.0) % Eos % (Auto) (1.0-3.0) % Baso % (Auto) (0.0-1.0) % Neut # (Auto) (2.50-7.00) 10^3/uL Lymph # (Auto) (1.00-4.00) 10^3/uL [place] # (Auto) (0.10-0.80) 10^3/uL Eos # (Auto) (0.10-0.30) 10^3/uL Baso # (Auto) (0.00-0.10) 10^3/uL Immature Gran # (Auto) (0.00-0.50) 10^3/uL Sodium (136-145) mmol/L Potassium (3.5-5.1) mmol/L Chloride (98-107) mmol/L Carbon Dioxide (21.0-32.0) mmol/L Anion Gap (5-15) mmol/L BUN (7-18) mg/dL Creatinine (0.51-1.17) mg/dL Est Cr Clr Drug Dosing mL/min Estimated GFR (MDRD) mL/min Glucose (70-140) mg/dL POC Glucose 101 143 H 166 H (74-106) mg/dl Calcium (8.7-10.3) mg/dL Result Diagrams: 11/16/20 07:25 11/16/20 07:25 Sepsis Event Note - Evaluation Sepsis Screening Result: No Definite Risk - Focused Exam Vital Signs: Vital Signs Temp Pulse Pulse Resp BP BP Pulse Ox 11/12/20 15:00 97.6 F 92 20 147/70 H 95 11/12/20 14:35 94 22 H 154/62 H 98 11/12/20 11:00 97.7 F 82 20 134/74 95 11/12/20 07:57 82 140/71 11/12/20 06:27 97.5 F 82 18 145/64 H 95 - Problem List Review Problem List Initiated/Reviewed/Updated: Yes - My Orders Last 24 Hours: My Active Orders 11/12/20 13:12 Ready for Discharge [RC] PER UNIT ROUTINE 11/12/20 15:43 EKG 12 Lead [EK] Stat 11/12/20 15:44 EKG Documentation Completion [RC] ASDIRECTED - Assessment Assessment:: This is a 70 year old male who was admitted to the [facility] on 11/10/20 from an outlying [facility] by Dr. Catherine Sotelo for concerns of fluid retention and worsening SOB. From 11/08/20 - 11/10/20 patient was admitted to the [facility] for near syncope, dehydration, SOB. He receive IVF replacement and 1 unit of PRBCs for anemia secondary to recent acute blood loss. He was discharged home in stable condition but presented to the clinic a few hours after discharge with reportedly worsening of swelling and shortness of breath. Patient states he did not notice any fluid retention until after he had returned home. He states that he normally weighs around 280 lb. [facility] records note a variable baseline weight of around 285-294 recently. Admission weight of 299 lb. Chest x-ray was done without evidence of acute cardiopulmonary abnormality. BNP was done and was normal. EKG done with no acute st/t wave changes compared to last EKG. Troponin negative. Patient was admitted for IV diuresis and received Lasix 40mg IV BID. Patient is on Lasix at home taking 20 mg PO daily. Hospitalization course: 11/11/2020- improving fluid retention with improving exertional SOB. weight down 4 pounds from admission. 11/12/2020- patient notes improvement in fluid retention. Patient weight down to 293 with IV diuresis with improvement in symptoms though patient still feels like he has fluid on the thighs bilaterally. Creatinine slightly increased with Iv diuresis and 1.53 today, GFR 45. Potassium levels normal. Hgb 9.6. Thrombocytopenia as also noted on recent labs improving at 98,000. No signs of bleeding. Patient noted to be complaining of some scrotal tenderness and low back pain which he states noticed over the last week and has not changed. There is no significant scrotal swelling. no evidence of inguinal hernia on examination. no testicular pain or swelling. Can pursue outpatient ultrasound to further evaluate these concerns. Patient also expresses concerns regarding living situation in which he has difficulty at home getting into and out of the house due to stairs. Lengthy discussion had with patient regarding consideration for short term placement at a local SNF for rehabilitation. Patients was open to this however patient is not interested. He states they have family assistance and are able to make modifications to allow him to be on one level of the home. Will need further evaluation of living situation at follow-up. 11/12/2020 update: Planned for discharge home however after afternoon shower patient noted onset of nausea, vomiting, and shakiness. Blood glucose done and normal. VS stable at the time. orthostatic BP done with positive response and as noted: lying 147/70 HR 92, sitting 158/58 HR 93, Standing 126/60 HR 104. EKG done with no acute changes noted. Patient also noted to be complaining of more discomfort in the right groin and still patient reported swelling to the thighs and maybe fullness of the lower abdomen. Given past medical history including DVT and PE/history of IVC filter placement and patient is currently off anticoagulation due to recent GI bleed there is a strong concern of possible DVT and/or possibly IVC filter thrombosis. Given concerns and that ultrasound is unavailable in the hospital over the weekend, did consult with station gateman hospitalist Dr. Corona at [facility] in [place]. Dr Corona agrees with restarting anticoagulation as no evidence of active GI bleeding and given timeline since GI bleed. Per Dr. Corona any additional interventional management for DVT would be unable to be pursued due to recent GI bleeding. No additional management outside of what is able to be provided locally would be initiated if transfer. OK to hold off on imaging until tomorrow when ultrasound is available with plan for restarting anticoagulation today. Patient and spouse agreeable to this plan. Primary hospital problems: # peripheral edema, ?DVT - no evidence of CHF: normal chest x-ray. normal BNP. no orthopnea or PND. no JVD - mild increase in creatinine today likely secondary to diuresis. potassium stable. - Given full clinical scenario, do question if symptoms secondary to possible DVT - Hold off on additional diuresis. - Restart anticoagulation xarelto. Restart at initial DVT dosing of 15mg PO BID per Dr. Catherine Sotelo. likely at this dose for 1 week. - will need ultrasound and possibly echocardiogram tomorrow. - Discontinue SCDs # Anemia, blood loss - stable, continue monitoring. - asymptomatic at this time. no active bleeding. improving hemoglobin. - monitory closely for bleeding. - recheck CBC in the AM # Orthostatic hypotension - hold diuretics - increase fluid intake. Pertinent Recent History: 11/06/20- evaluated by Dr. Catherine Sotelo who consulted cardiology regrading his classic stable angina pectoris and low hgb. he was given 1 unit PRBC on 11/07/20. 10/26/20 - 10/28/20 hospitalized at [facility] for Acute blood loss anemia, melanotic stools, barretts esophagus, iron deficiency, elevated creatinine, HFrEF, and mild aortic stenosis. - EGD medium sized hiatal hernia, White's, non-bleeing erosive gastropathy. - colonoscopy with poor prep however negative with repeat recommended in 1 year. recommended to hold both xarelto and plavix for 2 weeks post discharge and starting on omeprazole 20mg BID. Chronic conditions: -T2DM: On metformin 1000 mg BID, Victoza 1.8 mg SQ daily, novolog SS, Lantus 46 units daily. -CAD, s/p CABG x 3: On coreg 12.5 mg BID, nitroglycerin 0.4 mg SL prn. -Chronic systolic HF: On lasix 20 mg daily. ECHO 10/2020 noted EF 55%, mild aortic stenosis, mild LVH, grade 2 diastolic dysfunction, normal systolic function. -Heart murmur. -HTN: On losartan-HCTZ 100-25 mg daily. -History of DVT/PE, IVC filter in place. -Hypokalemia: On potassium 10 mEq daily. Potassium normal today. Plan of care/Disposition: - recheck CBC and panel in the AM - Disposition: Patient will need extended observation status due to changing clinical status for further diagnostic evaluation and management. Will restart anticoagulation. plan for ultrasound tomorrow. anticipate possible Discharge tomorrow Code status: Full
[2020-11-12] MEDS: Rivaroxaban 10 MG Tab PO SCH ×2 (18:46→20:46)
[2020-11-12] MEDS: ATORVASTATIN 80 MG PO SCH (20:43)
[2020-11-12] MEDS: Omeprazole 20 MG Cap.CR PO SCH (20:43)
[2020-11-12] MEDS: LANTUS 100 UNIT/ML SUBCUT SCH (20:44)
[2020-11-13] MEDS: Omeprazole 20 MG Cap.CR PO SCH ×3 (07:57→17:30)
[2020-11-13 08:00] LABS: ANION GAP 14.7 mmol/L (5-15); CHLORIDE,CL 100 mmol/L (98-107); SODIUM,NA 134 mmol/L (136-145)
[2020-11-13] MEDS: Carvedilol 12.5 MG Tab **OWN MED PO SCH ×2 (08:19→18:17)
[2020-11-13] MEDS: SULFAMETHOXAZOLE PO SCH (08:20)
[2020-11-13] MEDS: TRIMETHOPRIM PO SCH (08:20)
[2020-11-13] MEDS: Potassium Chloride 10 MEQ Tab.ER **OWN MED PO SCH (08:21)
[2020-11-13] MEDS: METFORMIN HCL 1000 MG PO SCH ×2 (08:21→18:16)
[2020-11-13] MEDS: VITAMIN B COMPLEX PO SCH (08:22)
[2020-11-13] MEDS: Insulin Aspart 100 Units/ML 3 ML Pen **OWN MED SUBCUT SCH ×4 (08:22→21:20)
[2020-11-13] MEDS: Tamsulosin 0.4 MG Cap.ER PO SCH (08:29)
[2020-11-13] MEDS: Rivaroxaban 10 MG Tab PO SCH ×2 (08:29→21:21)
[2020-11-13] MEDS: VICTOZA 18 MG/3 ML SUBCUT SCH (08:30)
--- NOTE | 2020-11-13 11:38 | US ---
[id number] US/US Venous Doppler LE Bilateral EXAM: US Venous Doppler LE Bilateral INDICATION: LOWER EXTREMITY SWELLING/PAIN. HISTORY OF DVT/PE, COMPARISON: None. DISCUSSION: Echogenic material within partially occlusive vascular structures bilaterally. On the right findings are in the right common femoral and mid/distal popliteal veins. On the left findings are in the left common femoral vein. Findings are consistent with nonocclusive DVT. IMPRESSION: Positive for DVT, described above. Otilio Nathan MD 11/13/20 [id number] Thank you for allowing us to participate in the care of your patient.
--- NOTE | 2020-11-13 11:38 | US ---
[id number] US/US Ext Nonvascular Limited Rt Exam: US Ext Nonvascular Limited Rt Indication:RIGHT GROIN PAIN. Comparison: No prior imaging for comparison. Discussion/Impression: No lymphadenopathy, soft tissue mass, vascular malformation, or other abnormality in the right inguinal region. Otilio Nathan MD 11/13/20 [id number] Thank you for allowing us to participate in the care of your patient.
--- NOTE | 2020-11-13 15:38 | PCM.PN ---
- General Info Date of Service: 11/13/20 Functional Status: Denies: Pain Controlled, Ambulating - Review of Systems General: Reports: Weakness. Denies: Fever HEENT: Reports: No Symptoms Pulmonary: Reports: No Symptoms Cardiovascular: Reports: No Symptoms Gastrointestinal: Reports: No Symptoms Musculoskeletal: Reports: Leg Pain (right groin pain) Skin: Reports: Bruising Neurological: Denies: Dizziness Psychiatric: Reports: Anxiety - Patient Data Vitals - Most Recent: Last Vital Signs Temp 98.3 F 11/13/20 15:00 Pulse 88 11/13/20 15:00 Resp 16 11/13/20 15:00 BP 140/62 11/13/20 15:00 Pulse Ox 93 L 11/13/20 15:00 Orthostatic Blood Pressure [ 125/60 Standing] Orthostatic Blood Pressure [ 158/58 Sitting] Orthostatic Blood Pressure [ 147/70 Supine] Weight - Most Recent: 294 lb 14.4 oz I&O - Last 24 Hours: Intake & Output 11/13/20 11/13/20 11/13/20 06:59 14:59 22:59 Intake Total 450 400 Output Total 300 775 Balance 150 -375 Lab Results Last 24 Hours: Laboratory Results - last 24 hr 11/12/20 11/12/20 11/12/20 Range/Units 17:46 19:50 20:41 WBC (5.00-10.00) 10^3/uL RBC (4.50-6.00) 10^6/uL Hgb (13.0-17.0) g/dL Hct (40.0-52.0) % MCV (82.0-92.0) fL MCH (27.0-31.0) pg MCHC (32.0-36.0) g/dL RDW (11.5-14.5) % Plt Count (150-400) 10^3/uL MPV (7.4-10.4) fL Immature Gran % (Auto) (0.0-5.0) % Neut % (Auto) (50.0-70.0) % Lymph % (Auto) (20.0-40.0) % Andrew % (Auto) (2.0-8.0) % Eos % (Auto) (1.0-3.0) % Baso % (Auto) (0.0-1.0) % Neut # (Auto) (2.50-7.00) 10^3/uL Lymph # (Auto) (1.00-4.00) 10^3/uL Andrew # (Auto) (0.10-0.80) 10^3/uL Eos # (Auto) (0.10-0.30) 10^3/uL Baso # (Auto) (0.00-0.10) 10^3/uL Immature Gran # (Auto) (0.00-0.50) 10^3/uL Sodium (136-145) mmol/L Potassium (3.5-5.1) mmol/L Chloride (98-107) mmol/L Carbon Dioxide (21.0-32.0) mmol/L Anion Gap (5-15) mmol/L BUN (7-18) mg/dL Creatinine (0.51-1.17) mg/dL Est Cr Clr Drug Dosing mL/min Estimated GFR (MDRD) mL/min Glucose (70-140) mg/dL POC Glucose 157 H 139 H (74-106) mg/dl Calcium (8.7-10.3) mg/dL Total Bilirubin (0.2-1.0) mg/dL AST (15-37) U/L ALT (14-63) U/L Alkaline Phosphatase (46-116) U/L Total Protein (6.4-8.2) g/dL Albumin (3.40-5.00) g/dL Specimen Type Urincc Urine Color Yellow (YELLOW) Urine Appearance Slightly cloudy H (CLEAR) Urine pH 5.5 (5.0-9.0) Ur Specific [place] 1.020 (1.005-1.030) Urine Protein Negative (NEGATIVE) mg/dL Urine Glucose (UA) Negative (NEGATIVE) mg/dL Urine Ketones Negative (NEGATIVE) mg/dL Urine Occult Blood Negative (NEGATIVE) Urine Nitrite Negative (NEGATIVE) Urine Bilirubin Negative (NEGATIVE) Urine Urobilinogen 0.2 (0.2-1.0) E.U./dL Ur Leukocyte Esterase Negative (NEGATIVE) U Hyaline Cast (Auto) Few Urine RBC 0-5 (0-5) /HPF Urine WBC 0-5 (0-5) /HPF Ur Epithelial Cells Few /LPF Urine Bacteria Few (NONE TO FEW) /HPF 11/13/20 11/13/20 11/13/20 Range/Units 07:15 07:15 07:50 WBC 5.55 (5.00-10.00) 10^3/uL RBC 3.25 L (4.50-6.00) 10^6/uL Hgb 8.8 L (13.0-17.0) g/dL Hct 27.1 L (40.0-52.0) % MCV 83.4 (82.0-92.0) fL MCH 27.1 (27.0-31.0) pg MCHC 32.5 (32.0-36.0) g/dL RDW 15.7 H (11.5-14.5) % Plt Count 97 L (150-400) 10^3/uL MPV 9.5 (7.4-10.4) fL Immature Gran % (Auto) 0.2 (0.0-5.0) % Neut % (Auto) 68.2 (50.0-70.0) % Lymph % (Auto) 20.7 (20.0-40.0) % Andrew % (Auto) 9.0 H (2.0-8.0) % Eos % (Auto) 1.4 (1.0-3.0) % Baso % (Auto) 0.5 (0.0-1.0) % Neut # (Auto) 3.78 (2.50-7.00) 10^3/uL Lymph # (Auto) 1.15 (1.00-4.00) 10^3/uL Andrew # (Auto) 0.50 (0.10-0.80) 10^3/uL Eos # (Auto) 0.08 L (0.10-0.30) 10^3/uL Baso # (Auto) 0.03 (0.00-0.10) 10^3/uL Immature Gran # (Auto) 0.01 (0.00-0.50) 10^3/uL Sodium 134 L (136-145) mmol/L Potassium 4.3 (3.5-5.1) mmol/L Chloride 100 (98-107) mmol/L Carbon Dioxide 23.6 (21.0-32.0) mmol/L Anion Gap 14.7 (5-15) mmol/L BUN 31 H (7-18) mg/dL Creatinine 1.65 H (0.51-1.17) mg/dL Est Cr Clr Drug Dosing 47.08 mL/min Estimated GFR (MDRD) 41 mL/min Glucose 115 (70-140) mg/dL POC Glucose 111 H (74-106) mg/dl Calcium 8.7 (8.7-10.3) mg/dL Total Bilirubin 0.8 (0.2-1.0) mg/dL AST < 9 L (15-37) U/L ALT 13 L (14-63) U/L Alkaline Phosphatase 62 (46-116) U/L Total Protein 6.6 (6.4-8.2) g/dL Albumin 3.19 L (3.40-5.00) g/dL Specimen Type Urine Color (YELLOW) Urine Appearance (CLEAR) Urine pH (5.0-9.0) Ur Specific [place] (1.005-1.030) Urine Protein (NEGATIVE) mg/dL Urine Glucose (UA) (NEGATIVE) mg/dL Urine Ketones (NEGATIVE) mg/dL Urine Occult Blood (NEGATIVE) Urine Nitrite (NEGATIVE) Urine Bilirubin (NEGATIVE) Urine Urobilinogen (0.2-1.0) E.U./dL Ur Leukocyte Esterase (NEGATIVE) U Hyaline Cast (Auto) Urine RBC (0-5) /HPF Urine WBC (0-5) /HPF Ur Epithelial Cells /LPF Urine Bacteria (NONE TO FEW) /HPF 11/13/20 Range/Units 11:31 WBC (5.00-10.00) 10^3/uL RBC (4.50-6.00) 10^6/uL Hgb (13.0-17.0) g/dL Hct (40.0-52.0) % MCV (82.0-92.0) fL MCH (27.0-31.0) pg MCHC (32.0-36.0) g/dL RDW (11.5-14.5) % Plt Count (150-400) 10^3/uL MPV (7.4-10.4) fL Immature Gran % (Auto) (0.0-5.0) % Neut % (Auto) (50.0-70.0) % Lymph % (Auto) (20.0-40.0) % Andrew % (Auto) (2.0-8.0) % Eos % (Auto) (1.0-3.0) % Baso % (Auto) (0.0-1.0) % Neut # (Auto) (2.50-7.00) 10^3/uL Lymph # (Auto) (1.00-4.00) 10^3/uL Andrew # (Auto) (0.10-0.80) 10^3/uL Eos # (Auto) (0.10-0.30) 10^3/uL Baso # (Auto) (0.00-0.10) 10^3/uL Immature Gran # (Auto) (0.00-0.50) 10^3/uL Sodium (136-145) mmol/L Potassium (3.5-5.1) mmol/L Chloride (98-107) mmol/L Carbon Dioxide (21.0-32.0) mmol/L Anion Gap (5-15) mmol/L BUN (7-18) mg/dL Creatinine (0.51-1.17) mg/dL Est Cr Clr Drug Dosing mL/min Estimated GFR (MDRD) mL/min Glucose (70-140) mg/dL POC Glucose 135 H (74-106) mg/dl Calcium (8.7-10.3) mg/dL Total Bilirubin (0.2-1.0) mg/dL AST (15-37) U/L ALT (14-63) U/L Alkaline Phosphatase (46-116) U/L Total Protein (6.4-8.2) g/dL Albumin (3.40-5.00) g/dL Specimen Type Urine Color (YELLOW) Urine Appearance (CLEAR) Urine pH (5.0-9.0) Ur Specific [place] (1.005-1.030) Urine Protein (NEGATIVE) mg/dL Urine Glucose (UA) (NEGATIVE) mg/dL Urine Ketones (NEGATIVE) mg/dL Urine Occult Blood (NEGATIVE) Urine Nitrite (NEGATIVE) Urine Bilirubin (NEGATIVE) Urine Urobilinogen (0.2-1.0) E.U./dL Ur Leukocyte Esterase (NEGATIVE) U Hyaline Cast (Auto) Urine RBC (0-5) /HPF Urine WBC (0-5) /HPF Ur Epithelial Cells /LPF Urine Bacteria (NONE TO FEW) /HPF Med Orders - Current: Current Medications Acetaminophen (Acetaminophen 500 Mg Tab) 500 mg PO Q6H PRN PRN Reason: Pain Last Admin: 11/11/20 20:10 Dose: 500 mg Documented by: Atropine Sulfate (Atropine 0.1 Mg/Ml 10 Ml Syringe) 0 mg IVPUSH ASDIRECTED PRN PRN Reason: Heart. Carvedilol (Carvedilol 12.5 Mg Tab Own Med) 12.5 mg PO BIDMEALS [facility] Last Admin: 11/13/20 08:19 Dose: 12.5 mg Documented by: Dextrose/Water (50% Dextrose In Water 50 Ml Syringe) 50 ml IV ASDIRECTED PRN PRN Reason: Hypoglycemia Epinephrine HCl (Epinephrine 1:10,000 1 Mg/10 Ml Syringe) 1 mg IVPUSH ASDIRECTED PRN PRN Reason: Heart. Glucagon (Glucagon,Human Recombinant 1 Mg Vial) 1 mg IM ASDIRECTED PRN PRN Reason: Hypoglycemia Insulin Aspart (Insulin Aspart 100 Units/Ml 3 Ml Pen Own Med) 0 [facility]; Protocol Last Admin: 11/13/20 13:06 Dose: Not Given Documented by: Insulin Glargine (Lantus 100 Units/Ml 3 Ml Pen Own Med) 0 units SUBCUT BEDTIME [facility] Last Admin: 11/12/20 20:44 Dose: 30 unit Documented by: Lidocaine HCl (Lidocaine 2% 100 Mg/5 Ml Syringe) 0 mg IVPUSH ASDIRECTED PRN PRN Reason: Heart. Liraglutide (Victoza 18mg/3ml Pen Own Med) 1.8 mg SUBCUT DAILY [facility] Last Admin: 11/13/20 08:30 Dose: 1.8 mg Documented by: Nitroglycerin (Nitroglycerin 0.4 Mg Tab.Sl) 0.4 mg SL ASDIRECTED PRN PRN Reason: Heart. Metformin Hcl 1,000 (Mg Own Med) 0 mg PO BIDMEALS [facility] Last Admin: 11/13/20 08:21 Dose: 1,000 mg Documented by: Omeprazole (Omeprazole 20 Mg Cap.Cr) 20 mg PO BID [facility] Last Admin: 11/13/20 08:22 Dose: Not Given Documented by: Atorvastatin 80 Mg (Tab Own Med) 0 each PO BEDTIME [facility] Last Admin: 11/12/20 20:43 Dose: 1 each Documented by: Potassium Chloride (Potassium Chloride 10 Meq Tab.Er Own Med) 10 meq PO DAILY [facility] Last Admin: 11/13/20 08:21 Dose: 10 meq Documented by: Rivaroxaban (Rivaroxaban 10 Mg Tab) 15 mg PO BID [facility] Last Admin: 11/13/20 08:29 Dose: 15 mg Documented by: Sodium Chloride (Sodium Chloride 0.9% 10 Ml Syringe) 10 ml FLUSH ,15, PRN PRN Reason: keep vein open Tamsulosin HCl (Tamsulosin 0.4 Mg Cap.Er) 0.4 mg PO PCBREAKFAST [facility] Last Admin: 11/13/20 08:29 Dose: 0.4 mg Documented by: Trimethoprim/Sulfamethoxazole (Sulfamethoxazole/Trimethoprim 800-160 Mg Tab Own Med) 1 tab PO DAILY [facility] Last Admin: 11/13/20 08:20 Dose: 1 tab Documented by: Vitamin B Complex (Vitamin B Complex Tab Own Med) 1 each PO DAILY [facility] Last Admin: 11/13/20 08:22 Dose: 1 each Documented by: Discontinued Medications Furosemide (Furosemide 40 Mg/4 Ml Vial) 40 mg IVPUSH BIDDIURETIC [facility] Last Admin: 11/11/20 09:15 Dose: 40 mg Documented by: Furosemide (Furosemide 40 Mg/4 Ml Vial) 20 mg IVPUSH BID [facility] Last Admin: 11/12/20 09:12 Dose: 20 mg Documented by: Furosemide (Furosemide 20 Mg Tab) 20 mg PO 1400 [facility] Last Admin: 11/12/20 18:22 Dose: Not Given Documented by: Omeprazole (Omeprazole 20 Mg Cap.Cr Own Med) 20 mg PO ACBREAKFAST [facility] Last Admin: 11/12/20 07:56 Dose: 20 mg Documented by: - Exam Quality Assessment: No: Skin Breakdown General: Alert, Oriented Neck: Supple Lungs: Clear to Auscultation, Normal Respiratory Effort Cardiovascular: Regular Rate, Regular Rhythm (Male) Exam: No: Hernia (per US results today. ) Skin: Ecchymosis (right jane) Neurological: No New Focal Deficit Psy/Mental Status: Alert, Normal Affect - Patient Data Lab Results Last 24 hrs: Laboratory Results - last 24 hr 04/06/2411/12/20 11/12/20 Range/Units 17:46 19:50 20:41 WBC (5.00-10.00) 10^3/uL RBC (4.50-6.00) 10^6/uL Hgb (13.0-17.0) g/dL Hct (40.0-52.0) % MCV (82.0-92.0) fL MCH (27.0-31.0) pg MCHC (32.0-36.0) g/dL RDW (11.5-14.5) % Plt Count (150-400) 10^3/uL MPV (7.4-10.4) fL Immature Gran % (Auto) (0.0-5.0) % Neut % (Auto) (50.0-70.0) % Lymph % (Auto) (20.0-40.0) % Andrew % (Auto) (2.0-8.0) % Eos % (Auto) (1.0-3.0) % Baso % (Auto) (0.0-1.0) % Neut # (Auto) (2.50-7.00) 10^3/uL Lymph # (Auto) (1.00-4.00) 10^3/uL Andrew # (Auto) (0.10-0.80) 10^3/uL Eos # (Auto) (0.10-0.30) 10^3/uL Baso # (Auto) (0.00-0.10) 10^3/uL Immature Gran # (Auto) (0.00-0.50) 10^3/uL Sodium (136-145) mmol/L Potassium (3.5-5.1) mmol/L Chloride (98-107) mmol/L Carbon Dioxide (21.0-32.0) mmol/L Anion Gap (5-15) mmol/L BUN (7-18) mg/dL Creatinine (0.51-1.17) mg/dL Est Cr Clr Drug Dosing mL/min Estimated GFR (MDRD) mL/min Glucose (70-140) mg/dL POC Glucose 157 H 139 H (74-106) mg/dl Calcium (8.7-10.3) mg/dL Total Bilirubin (0.2-1.0) mg/dL AST (15-37) U/L ALT (14-63) U/L Alkaline Phosphatase (46-116) U/L Total Protein (6.4-8.2) g/dL Albumin (3.40-5.00) g/dL Specimen Type Urincc Urine Color Yellow (YELLOW) Urine Appearance Slightly cloudy H (CLEAR) Urine pH 5.5 (5.0-9.0) Ur Specific [place] 1.020 (1.005-1.030) Urine Protein Negative (NEGATIVE) mg/dL Urine Glucose (UA) Negative (NEGATIVE) mg/dL Urine Ketones Negative (NEGATIVE) mg/dL Urine Occult Blood Negative (NEGATIVE) Urine Nitrite Negative (NEGATIVE) Urine Bilirubin Negative (NEGATIVE) Urine Urobilinogen 0.2 (0.2-1.0) E.U./dL Ur Leukocyte Esterase Negative (NEGATIVE) U Hyaline Cast (Auto) Few Urine RBC 0-5 (0-5) /HPF Urine WBC 0-5 (0-5) /HPF Ur Epithelial Cells Few /LPF Urine Bacteria Few (NONE TO FEW) /HPF 11/13/20 11/13/20 11/13/20 Range/Units 07:15 07:15 07:50 WBC 5.55 (5.00-10.00) 10^3/uL RBC 3.25 L (4.50-6.00) 10^6/uL Hgb 8.8 L (13.0-17.0) g/dL Hct 27.1 L (40.0-52.0) % MCV 83.4 (82.0-92.0) fL MCH 27.1 (27.0-31.0) pg MCHC 32.5 (32.0-36.0) g/dL RDW 15.7 H (11.5-14.5) % Plt Count 97 L (150-400) 10^3/uL MPV 9.5 (7.4-10.4) fL Immature Gran % (Auto) 0.2 (0.0-5.0) % Neut % (Auto) 68.2 (50.0-70.0) % Lymph % (Auto) 20.7 (20.0-40.0) % Andrew % (Auto) 9.0 H (2.0-8.0) % Eos % (Auto) 1.4 (1.0-3.0) % Baso % (Auto) 0.5 (0.0-1.0) % Neut # (Auto) 3.78 (2.50-7.00) 10^3/uL Lymph # (Auto) 1.15 (1.00-4.00) 10^3/uL Andrew # (Auto) 0.50 (0.10-0.80) 10^3/uL Eos # (Auto) 0.08 L (0.10-0.30) 10^3/uL Baso # (Auto) 0.03 (0.00-0.10) 10^3/uL Immature Gran # (Auto) 0.01 (0.00-0.50) 10^3/uL Sodium 134 L (136-145) mmol/L Potassium 4.3 (3.5-5.1) mmol/L Chloride 100 (98-107) mmol/L Carbon Dioxide 23.6 (21.0-32.0) mmol/L Anion Gap 14.7 (5-15) mmol/L BUN 31 H (7-18) mg/dL Creatinine 1.65 H (0.51-1.17) mg/dL Est Cr Clr Drug Dosing 47.08 mL/min Estimated GFR (MDRD) 41 mL/min Glucose 115 (70-140) mg/dL POC Glucose 111 H (74-106) mg/dl Calcium 8.7 (8.7-10.3) mg/dL Total Bilirubin 0.8 (0.2-1.0) mg/dL AST < 9 L (15-37) U/L ALT 13 L (14-63) U/L Alkaline Phosphatase 62 (46-116) U/L Total Protein 6.6 (6.4-8.2) g/dL Albumin 3.19 L (3.40-5.00) g/dL Specimen Type Urine Color (YELLOW) Urine Appearance (CLEAR) Urine pH (5.0-9.0) Ur Specific [place] (1.005-1.030) Urine Protein (NEGATIVE) mg/dL Urine Glucose (UA) (NEGATIVE) mg/dL Urine Ketones (NEGATIVE) mg/dL Urine Occult Blood (NEGATIVE) Urine Nitrite (NEGATIVE) Urine Bilirubin (NEGATIVE) Urine Urobilinogen (0.2-1.0) E.U./dL Ur Leukocyte Esterase (NEGATIVE) U Hyaline Cast (Auto) Urine RBC (0-5) /HPF Urine WBC (0-5) /HPF Ur Epithelial Cells /LPF Urine Bacteria (NONE TO FEW) /HPF 11/13/20 Range/Units 11:31 WBC (5.00-10.00) 10^3/uL RBC (4.50-6.00) 10^6/uL Hgb (13.0-17.0) g/dL Hct (40.0-52.0) % MCV (82.0-92.0) fL MCH (27.0-31.0) pg MCHC (32.0-36.0) g/dL RDW (11.5-14.5) % Plt Count (150-400) 10^3/uL MPV (7.4-10.4) fL Immature Gran % (Auto) (0.0-5.0) % Neut % (Auto) (50.0-70.0) % Lymph % (Auto) (20.0-40.0) % Andrew % (Auto) (2.0-8.0) % Eos % (Auto) (1.0-3.0) % Baso % (Auto) (0.0-1.0) % Neut # (Auto) (2.50-7.00) 10^3/uL Lymph # (Auto) (1.00-4.00) 10^3/uL Andrew # (Auto) (0.10-0.80) 10^3/uL Eos # (Auto) (0.10-0.30) 10^3/uL Baso # (Auto) (0.00-0.10) 10^3/uL Immature Gran # (Auto) (0.00-0.50) 10^3/uL Sodium (136-145) mmol/L Potassium (3.5-5.1) mmol/L Chloride (98-107) mmol/L Carbon Dioxide (21.0-32.0) mmol/L Anion Gap (5-15) mmol/L BUN (7-18) mg/dL Creatinine (0.51-1.17) mg/dL Est Cr Clr Drug Dosing mL/min Estimated GFR (MDRD) mL/min Glucose (70-140) mg/dL POC Glucose 135 H (74-106) mg/dl Calcium (8.7-10.3) mg/dL Total Bilirubin (0.2-1.0) mg/dL AST (15-37) U/L ALT (14-63) U/L Alkaline Phosphatase (46-116) U/L Total Protein (6.4-8.2) g/dL Albumin (3.40-5.00) g/dL Specimen Type Urine Color (YELLOW) Urine Appearance (CLEAR) Urine pH (5.0-9.0) Ur Specific [place] (1.005-1.030) Urine Protein (NEGATIVE) mg/dL Urine Glucose (UA) (NEGATIVE) mg/dL Urine Ketones (NEGATIVE) mg/dL Urine Occult Blood (NEGATIVE) Urine Nitrite (NEGATIVE) Urine Bilirubin (NEGATIVE) Urine Urobilinogen (0.2-1.0) E.U./dL Ur Leukocyte Esterase (NEGATIVE) U Hyaline Cast (Auto) Urine RBC (0-5) /HPF Urine WBC (0-5) /HPF Ur Epithelial Cells /LPF Urine Bacteria (NONE TO FEW) /HPF Result Diagrams: 11/13/20 07:15 11/13/20 07:15 Sepsis Event Note - Evaluation Sepsis Screening Result: No Definite Risk - Focused Exam Vital Signs: Vital Signs Temp Temp Pulse Pulse Pulse Resp BP 11/13/20 15:00 98.3 F 88 16 11/13/20 11:00 97.9 F 90 20 11/13/20 08:19 84 137/68 11/13/20 06:23 98.1 F 87 20 BP BP Pulse Ox 11/13/20 15:00 140/62 93 L 11/13/20 11:00 133/67 96 11/13/20 08:19 11/13/20 06:23 126/61 93 L - Problem List Review Problem List Initiated/Reviewed/Updated: Yes - Assessment Assessment:: This is a 70 year old male who was admitted to the [facility] on 11/10/[address] [facility] by Dr. Catherine Sotelo for concerns of fluid retention and worsening SOB. From 11/08/20 - 11/10/20 patient was admitted to the [facility] for near syncope, dehydration, SOB. He receive IVF replacement and 1 unit of PRBCs for anemia secondary to recent acute blood loss. He was discharged home in stable condition but presented to the clinic a few hours after discharge with reportedly worsening of swelling and shortness of breath on exertion. Patient states he did not notice any fluid retention until after he had returned home. He states that he normally weighs around 280 lb on his home scale. [facility] records note a variable baseline weight of around 285-294 recently. Admission weight of 299 lb. Chest x-ray was done without evidence of acute cardiopulmonary abnormality. BNP was done and was normal. EKG done with no acute st/t wave changes compared to last EKG. Troponin negative. Patient was admitted for IV diuresis and received Lasix 40mg IV BID. Patient is on Lasix at home taking 20 mg PO daily. Primary hospital problems: --DVT, right and left CFV, mid/distal popliteal veins right. # Fluid retention - no evidence of CHF: normal chest x-ray. normal BNP. no orthopnea or PND. no JVD - Patient reports improving symptomatology. Patient still notes some swelling and mild, but improving exertional SOB. No chest pain or palpitations. - Weight up 3.5 lbs from yesterday, - mild increase in creatinine though overall stable. potassium stable. # Anemia, blood loss, PPI - stable, continue monitoring. - asymptomatic at this time. no active bleeding. Hgb >8. Pertinent Recent History: 11/06/20- evaluated by Dr. Catherine oStelo who consulted cardiology regrading his classic stable angina pectoris and low hgb. he was given 1 unit PRBC on 11/07/20. 10/26/20 - 10/28/20 hospitalized at [facility] for Acute blood loss anemia, melanotic stools, barretts esophagus, iron deficiency, elevated creatinine, HFrEF, and mild aortic stenosis. - EGD medium sized hiatal hernia, White's, non-bleeding erosive gastropathy. - colonoscopy with poor prep however negative with repeat recommended in 1 year. recommended to hold both xarelto and plavix for 2 weeks post discharge and starting on omeprazole 20mg BID. Chronic conditions: -T2DM: On metformin 1000 mg BID, Victoza 1.8 mg SQ daily, novolog SS, Lantus 46 units daily. -CAD, s/p CABG x 3: On coreg 12.5 mg BID, nitroglycerin 0.4 mg SL prn. -Chronic systolic HF: On lasix 20 mg daily. ECHO 10/2020 noted EF 55%, mild aortic stenosis, mild LVH, grade 2 diastolic dysfunction, normal systolic function. -Heart murmur. -HTN: On losartan-HCTZ 100-25 mg daily. -History of DVT/PE, IVC filter in place. -Hypokalemia: On potassium 10 mEq daily. Potassium normal today. Plan of care/Disposition: - Surgical support stockings - up ambulating in [place] today - Tramadol for pain - Nurses please Restart Home Lasix - PT eval Code status: Full
[2020-11-13] MEDS ORDERED: traMADol 50 MG Tab PO PRN (15:53)
[2020-11-13] MEDS: ATORVASTATIN 80 MG PO SCH (21:24)
[2020-11-13] MEDS: LANTUS 100 UNIT/ML SUBCUT SCH (21:25)
[2020-11-14] MEDS ORDERED: Carvedilol 12.5 MG Tab PO SCH (08:05)
[2020-11-14] MEDS ORDERED: Insulin Aspart 100 Units/ML 3 ML Pen SUBCUT SCH (08:10)
[2020-11-14] MEDS: Omeprazole 20 MG Cap.CR PO SCH ×3 (08:17→17:37)
[2020-11-14] MEDS: metFORMIN 500 MG Tab PO SCH ×2 (08:20→17:37)
[2020-11-14] MEDS: Carvedilol 6.25 MG Tab PO SCH ×2 (08:23→17:37)
[2020-11-14] MEDS: Tamsulosin 0.4 MG Cap.ER PO SCH (08:24)
[2020-11-14] MEDS: Potassium Chloride 10 MEQ Tab.ER PO SCH (08:24)
[2020-11-14] MEDS: Sulfamethoxazole/Trimethoprim 800-160 MG Tab PO SCH (08:25)
[2020-11-14] MEDS: Rivaroxaban 10 MG Tab PO SCH ×2 (08:25→21:10)
[2020-11-14] MEDS: Vitamin B Complex Tab PO SCH (08:28)
--- NOTE | 2020-11-14 08:35 | PCM.PN ---
- General Info Date of Service: 11/14/20 Functional Status: Reports: Tolerating Diet, Ambulating (Beginning to ambulate more at least in his room however slowly). Denies: Pain Controlled (Pain is improved however not yet optimal) - Review of Systems General: Reports: Weakness HEENT: Reports: No Symptoms, Other (Hearing aids) Pulmonary: Reports: No Symptoms Cardiovascular: Reports: No Symptoms Gastrointestinal: Reports: No Symptoms Genitourinary: Reports: No Symptoms Musculoskeletal: Reports: Other (Groin pain right-sided however improved) Skin: Reports: Rash (Chronic lower extremity stasis dermatitis) Neurological: Reports: Trouble Speaking, Difficulty Walking, Gait Disturbance - Patient Data Vitals - Most Recent: Last Vital Signs Temp 97.1 F 11/14/20 06:53 Pulse 77 11/14/20 06:53 Resp 18 11/14/20 06:53 BP 132/67 11/14/20 06:53 Pulse Ox 95 11/14/20 06:53 Orthostatic Blood Pressure [ 125/60 Standing] Orthostatic Blood Pressure [ 158/58 Sitting] Orthostatic Blood Pressure [ 147/70 Supine] Weight - Most Recent: 295 lb 1 oz I&O - Last 24 Hours: Intake & Output 11/13/20 11/14/20 11/14/20 22:59 06:59 14:59 Intake Total 800 300 Output Total 775 800 Balance 25 -500 Lab Results Last 24 Hours: Laboratory Results - last 24 hr 11/13/20 11/13/20 11/13/20 Range/Units 11:31 17:33 21:19 POC Glucose 135 H 124 H 137 H (74-106) mg/dl 11/14/20 Range/Units 07:41 POC Glucose 99 (74-106) mg/dl Med Orders - Current: Current Medications Acetaminophen (Acetaminophen 500 Mg Tab) 500 mg PO Q6H PRN PRN Reason: Pain Last Admin: 11/11/20 20:10 Dose: 500 mg Documented by: Atorvastatin Calcium (Atorvastatin 40 Mg Tab) 80 mg PO BEDTIME [facility] Atropine Sulfate (Atropine 0.1 Mg/Ml 10 Ml Syringe) 0 mg IVPUSH ASDIRECTED PRN PRN Reason: Heart. Carvedilol (Carvedilol 6.25 Mg Tab) 6.25 mg PO BIDMEALS [facility] Dextrose/Water (50% Dextrose In Water 50 Ml Syringe) 50 ml IV ASDIRECTED PRN PRN Reason: Hypoglycemia Epinephrine HCl (Epinephrine 1:10,000 1 Mg/10 Ml Syringe) 1 mg IVPUSH ASDIRECTED PRN PRN Reason: Heart. Glucagon (Glucagon,Human Recombinant 1 Mg Vial) 1 mg IM ASDIRECTED PRN PRN Reason: Hypoglycemia Insulin Aspart (Insulin Aspart 100 Units/Ml 3 Ml Pen) 0 unit SUBCUT WITHMEALSANDBED [facility]; Protocol Insulin Glargine (Lantus 100 Units/Ml 3 Ml Pen) 30 units SUBCUT BEDTIME [facility] Lidocaine HCl (Lidocaine 2% 100 Mg/5 Ml Syringe) 0 mg IVPUSH ASDIRECTED PRN PRN Reason: Heart. Liraglutide (Victoza 18mg/3ml Pen) 1.8 mg SUBCUT DAILY [facility] Metformin HCl (Metformin 500 Mg Tab) 1,000 mg PO BIDMEALS [facility] Nitroglycerin (Nitroglycerin 0.4 Mg Tab.Sl) 0.4 mg SL ASDIRECTED PRN PRN Reason: Heart. Omeprazole (Omeprazole 20 Mg Cap.Cr) 20 mg PO BID@0730,1730 [facility] Last Admin: 11/14/20 08:17 Dose: 20 mg Documented by: Potassium Chloride (Potassium Chloride 10 Meq Tab.Er) 10 meq PO DAILY [facility] Rivaroxaban (Rivaroxaban 10 Mg Tab) 15 mg PO BID [facility] Last Admin: 11/13/20 21:21 Dose: 15 mg Documented by: Sodium Chloride (Sodium Chloride 0.9% 10 Ml Syringe) 10 ml FLUSH 06,15,23 PRN PRN Reason: keep vein open Tamsulosin HCl (Tamsulosin 0.4 Mg Cap.Er) 0.4 mg PO PCBREAKFAST [facility] Last Admin: 11/13/20 08:29 Dose: 0.4 mg Documented by: Tramadol HCl (Tramadol 50 Mg Tab) 50 mg PO Q6H PRN PRN Reason: Pain Last Admin: 11/13/20 16:49 Dose: 50 mg Documented by: Trimethoprim/Sulfamethoxazole (Sulfamethoxazole/Trimethoprim 800-160 Mg Tab) 1 tab PO DAILY [facility] Vitamin B Complex (Vitamin B Complex Tab) 1 each PO DAILY [facility] Discontinued Medications Carvedilol (Carvedilol 12.5 Mg Tab Own Med) 12.5 mg PO BIDMEALS [facility] Last Admin: 11/13/20 18:17 Dose: 12.5 mg Documented by: Carvedilol (Carvedilol 12.5 Mg Tab) 12.5 mg PO BIDMEALS [facility] Furosemide (Furosemide 40 Mg/4 Ml Vial) 40 mg IVPUSH BIDDIURETIC [facility] Last Admin: 11/11/20 09:15 Dose: 40 mg Documented by: Furosemide (Furosemide 40 Mg/4 Ml Vial) 20 mg IVPUSH BID [facility] Last Admin: 11/12/20 09:12 Dose: 20 mg Documented by: Furosemide (Furosemide 20 Mg Tab) 20 mg PO 1400 [facility] Last Admin: 11/12/20 18:22 Dose: Not Given Documented by: Insulin Aspart (Insulin Aspart 100 Units/Ml 3 Ml Pen Own Med) 0 unit SUBCUT WITHMEALSANDBED [facility]; Protocol Last Admin: 11/13/20 21:20 Dose: Not Given Documented by: Insulin Glargine (Lantus 100 Units/Ml 3 Ml Pen Own Med) 0 units SUBCUT BEDTIME [facility] Last Admin: 11/13/20 21:25 Dose: 30 unit Documented by: Liraglutide (Victoza 18mg/3ml Pen Own Med) 1.8 mg SUBCUT DAILY [facility] Last Admin: 11/13/20 08:30 Dose: 1.8 mg Documented by: Metformin Hcl 1,000 (Mg Own Med) 0 mg PO BIDMEALS [facility] Last Admin: 11/13/20 18:16 Dose: 1,000 mg Documented by: Omeprazole (Omeprazole 20 Mg Cap.Cr Own Med) 20 mg PO ACBREAKFAST [facility] Last Admin: 11/12/20 07:56 Dose: 20 mg Documented by: Omeprazole (Omeprazole 20 Mg Cap.Cr) 20 mg PO BID [facility] Last Admin: 11/13/20 08:22 Dose: Not Given Documented by: Omeprazole (Omeprazole 20 Mg Cap.Cr) 20 mg PO BID@0730,1730 [facility] Last Admin: 11/13/20 17:30 Dose: 20 mg Documented by: Atorvastatin 80 Mg (Tab Own Med) 0 each PO BEDTIME [facility] Last Admin: 11/13/20 21:24 Dose: 1 each Documented by: Potassium Chloride (Potassium Chloride 10 Meq Tab.Er Own Med) 10 meq PO DAILY [facility] Last Admin: 11/13/20 08:21 Dose: 10 meq Documented by: Trimethoprim/Sulfamethoxazole (Sulfamethoxazole/Trimethoprim 800-160 Mg Tab Own Med) 1 tab PO DAILY [facility] Last Admin: 11/13/20 08:20 Dose: 1 tab Documented by: Vitamin B Complex (Vitamin B Complex Tab Own Med) 1 each PO DAILY [facility] Last Admin: 11/13/20 08:22 Dose: 1 each Documented by: - Exam Quality Assessment: DVT Prophylaxis. No: Supplemental Oxygen General: Alert, Oriented Neck: Supple Lungs: Clear to Auscultation, Normal Respiratory Effort Cardiovascular: Regular Rate, Regular Rhythm, Murmurs GI/Abdominal Exam: Soft, No Distention Back Exam: No: CVA Tenderness (L), CVA Tenderness (R) Extremities: No Pedal Edema Skin: Other (Stasis dermatitis bilateral lower extremities anterior) Neurological: Normal Speech, Normal Tone, Sensation Intact, Cranial Nerves Intact. No: Normal Gait Psy/Mental Status: Alert, Normal Affect, Normal Mood - Patient Data Lab Results Last 24 hrs: Laboratory Results - last 24 hr 11/13/20 11/13/20 11/13/20 Range/Units 11:31 17:33 21:19 POC Glucose 135 H 124 H 137 H (74-106) mg/dl 11/14/20 Range/Units 07:41 POC Glucose 99 (74-106) mg/dl Result Diagrams: 11/13/20 07:15 11/13/20 07:15 Sepsis Event Note - Evaluation Sepsis Screening Result: No Definite Risk - Focused Exam Vital Signs: Vital Signs Temp Pulse Pulse Resp BP Pulse Ox 11/14/20 06:53 97.1 F 77 18 132/67 95 11/14/20 02:51 97.1 F 80 16 131/60 95 11/13/20 22:58 97.6 F 81 20 137/66 95 - Problem List Review Problem List Initiated/Reviewed/Updated: Yes - My Orders Last 24 Hours: My Active Orders 11/13/20 15:53 traMADol [Ultram] 50 mg PO Q6H PRN - Assessment Assessment:: T - Plan Plan:: History summary Mr Francisco is a 70 year old male who was admitted to the [facility] on 11/10/20 from an [facility] by Dr. Catherine Sotelo for concerns of fluid retention and worsening SOB. From 11/08/20 - 11/10/20 patient was admitted to the [facility] for near syncope, dehydration, SOB. He receive IVF replacement and 1 unit of PRBCs for anemia secondary to recent acute blood loss. He was discharged home in stable condition but presented to the clinic a few hours after discharge with reportedly worsening of swelling and shortness of breath on exertion. Patient states he did not notice any fluid retention until after he had returned home. He states that he normally weighs around 280 lb on his home scale. [place] records note a variable baseline weight of around 285-294 recently. Admission weight of 299 lb. Chest x-ray was done without evidence of acute cardiopulmonary abnormality. BNP was done and was normal. EKG done with no acute st/t wave changes compared to last EKG. Troponin negative. Patient was admitted for IV diuresis and received Lasix 40mg IV BID. Patient is on Lasix at home taking 20 mg PO daily. Primary hospital problems: - DVT, right and left CFV, mid/distal popliteal veins right. - Fluid retention, improving, - no evidence of CHF: normal chest x-ray. normal BNP. no orthopnea or PND. no JVD - Patient reports improving symptomatology. Patient still notes some swelling and mild, but improving exertional SOB. No chest pain or palpitations. - Weight ~same as yesterday at 295 despite negative output, -850 -Anemia, blood loss, PPI, stable, continue monitoring, asymptomatic at this time. no active bleeding. Hgb >8. Pertinent Recent History: 11/06/20- evaluated by Dr. Catherine Sotelo who consulted cardiology regrading his classic stable angina pectoris and low hgb. he was given 1 unit PRBC on 11/07/20. 10/26/20 - 10/28/20 hospitalized at [facility] for Acute blood loss anemia, melanotic stools, barretts esophagus, iron deficiency, elevated creatinine, HFrEF, and mild aortic stenosis. - EGD medium sized hiatal hernia, White's, non-bleeding erosive gastropathy. - colonoscopy with poor prep however negative with repeat recommended in 1 year. recommended to hold both xarelto and plavix for 2 weeks post discharge and starting on omeprazole 20mg BID. Chronic conditions: -T2DM: On metformin 1000 mg BID, Victoza 1.8 mg SQ daily, novolog SS, Lantus 46 units daily. -CAD, s/p CABG x 3: On coreg 12.5 mg BID, nitroglycerin 0.4 mg SL prn. -Chronic systolic HF: On lasix 20 mg daily. ECHO 10/2020 noted EF 55%, mild aortic stenosis, mild LVH, grade 2 diastolic dysfunction, normal systolic function. -Heart murmur. -HTN: On losartan-HCTZ 100-25 mg daily. -History of DVT/PE, IVC filter in place. -Hypokalemia: On potassium 10 mEq daily. Potassium normal Plan of care/Disposition: --Improving clinically, now able to ambulate however slowly, pain improving --Cont with Surgical support stockings --up ambulating in [place] today --Tramadol for pain --PT eval today, medicate 1 hr prior with Tramadol --Anticipate DC in am appears to be improving clinically Code status: Full
[2020-11-14] MEDS: Carvedilol 12.5 MG Tab **OWN MED PO SCH (08:55)
[2020-11-14] MEDS: METFORMIN HCL 1000 MG PO SCH (08:55)
[2020-11-14] MEDS: Insulin Aspart 100 Units/ML 3 ML Pen **OWN MED SUBCUT SCH (08:56)
[2020-11-14] MEDS: VICTOZA 18 MG/3 ML SUBCUT SCH (09:07)
[2020-11-14] MEDS: INSULIN ASPART 100 UNIT/ML SUBCUT SCH ×4 (09:11→21:14)
[2020-11-14] MEDS: Finasteride 5 MG Tab PO SCH (11:52)
[2020-11-14] MEDS: Hydrochlorothiazide 25 MG Tab PO SCH (11:52)
[2020-11-14] MEDS: Furosemide 20 MG Tab PO SCH (11:52)
[2020-11-14] MEDS: Losartan 50 MG Tab PO SCH (11:53)
[2020-11-14] MEDS: atorvaSTATin 40 MG Tab PO SCH (21:09)
[2020-11-14] MEDS: LANTUS 100 UNIT/ML SUBCUT SCH (21:12)
[2020-11-15] MEDS: Omeprazole 20 MG Cap.CR PO SCH ×2 (07:26→17:45)
[2020-11-15] MEDS: INSULIN ASPART 100 UNIT/ML SUBCUT SCH ×4 (07:27→21:40)
[2020-11-15] MEDS: metFORMIN 500 MG Tab PO SCH ×2 (08:15→17:45)
[2020-11-15] MEDS: Potassium Chloride 10 MEQ Tab.ER PO SCH (08:15)
[2020-11-15] MEDS: Furosemide 20 MG Tab PO SCH (08:16)
[2020-11-15] MEDS: Losartan 50 MG Tab PO SCH (08:16)
[2020-11-15] MEDS: Tamsulosin 0.4 MG Cap.ER PO SCH (08:16)
[2020-11-15] MEDS: Finasteride 5 MG Tab PO SCH (08:16)
[2020-11-15] MEDS: Vitamin B Complex Tab PO SCH (08:16)
[2020-11-15] MEDS: Rivaroxaban 10 MG Tab PO SCH ×2 (08:16→20:01)
[2020-11-15] MEDS: Carvedilol 6.25 MG Tab PO SCH ×2 (08:16→17:45)
[2020-11-15] MEDS: Sulfamethoxazole/Trimethoprim 800-160 MG Tab PO SCH (08:17)
[2020-11-15] MEDS: Lactobacillus Rhamnosus GG (Probiotic) Cap PO SCH (08:17)
[2020-11-15] MEDS: VICTOZA 18 MG/3 ML SUBCUT SCH (08:17)
[2020-11-15] MEDS: Hydrochlorothiazide 25 MG Tab PO SCH (08:17)
--- NOTE | 2020-11-15 11:57 | PCM.PN ---
- General Info Date of Service: 11/15/20 Subjective Update: Mr. Francisco reports general improvement in the past 24 hours in shortness of breath and ability to ambulate. Continues to feel bilateral lower extremities are swollen and continues to endorse R groin pain, albeit with some improvement. Continues to endorse mild fatigue. Eating, drinking, voiding, and stooling without concerns. - Patient Data Vitals - Most Recent: Last Vital Signs Temp 36.6 C 11/15/20 11:00 Pulse 82 11/15/20 11:00 Resp 16 11/15/20 11:00 BP 127/55 L 11/15/20 11:00 Pulse Ox 93 L 11/15/20 11:00 Orthostatic Blood Pressure [ 125/60 Standing] Orthostatic Blood Pressure [ 158/58 Sitting] Orthostatic Blood Pressure [ 147/70 Supine] Weight - Most Recent: 133.22 kg I&O - Last 24 Hours: Intake & Output 11/14/20 11/15/20 11/15/20 22:59 06:59 14:59 Intake Total 1150 500 Output Total 2325 1650 Balance -1175 -1150 Lab Results Last 24 Hours: Laboratory Results - last 24 hr 11/14/20 11/14/20 11/14/20 Range/Units 11:53 17:33 21:03 WBC (5.00-10.00) 10^3/uL RBC (4.50-6.00) 10^6/uL Hgb (13.0-17.0) g/dL Hct (40.0-52.0) % MCV (82.0-92.0) fL MCH (27.0-31.0) pg MCHC (32.0-36.0) g/dL RDW (11.5-14.5) % Plt Count (150-400) 10^3/uL MPV (7.4-10.4) fL Immature Gran % (Auto) (0.0-5.0) % Neut % (Auto) (50.0-70.0) % Lymph % (Auto) (20.0-40.0) % Emmet % (Auto) (2.0-8.0) % Eos % (Auto) (1.0-3.0) % Baso % (Auto) (0.0-1.0) % Neut # (Auto) (2.50-7.00) 10^3/uL Lymph # (Auto) (1.00-4.00) 10^3/uL Emmet # (Auto) (0.10-0.80) 10^3/uL Eos # (Auto) (0.10-0.30) 10^3/uL Baso # (Auto) (0.00-0.10) 10^3/uL Immature Gran # (Auto) (0.00-0.50) 10^3/uL Sodium (136-145) mmol/L Potassium (3.5-5.1) mmol/L Chloride (98-107) mmol/L Carbon Dioxide (21.0-32.0) mmol/L Anion Gap (5-15) mmol/L BUN (7-18) mg/dL Creatinine (0.51-1.17) mg/dL Est Cr Clr Drug Dosing mL/min Estimated GFR (MDRD) mL/min Glucose (70-140) mg/dL POC Glucose 124 H 109 H 111 H (74-106) mg/dl Calcium (8.7-10.3) mg/dL 11/15/20 11/15/20 11/15/20 Range/Units 07:26 10:05 10:05 WBC 4.29 L (5.00-10.00) 10^3/uL RBC 3.14 L (4.50-6.00) 10^6/uL Hgb 8.4 L (13.0-17.0) g/dL Hct 26.3 L (40.0-52.0) % MCV 83.8 (82.0-92.0) fL MCH 26.8 L (27.0-31.0) pg MCHC 31.9 L (32.0-36.0) g/dL RDW 15.5 H (11.5-14.5) % Plt Count 114 L (150-400) 10^3/uL MPV 8.9 (7.4-10.4) fL Immature Gran % (Auto) 0.0 (0.0-5.0) % Neut % (Auto) 66.6 (50.0-70.0) % Lymph % (Auto) 21.0 (20.0-40.0) % Emmet % (Auto) 8.2 H (2.0-8.0) % Eos % (Auto) 3.7 H (1.0-3.0) % Baso % (Auto) 0.5 (0.0-1.0) % Neut # (Auto) 2.86 (2.50-7.00) 10^3/uL Lymph # (Auto) 0.90 L (1.00-4.00) 10^3/uL Emmet # (Auto) 0.35 (0.10-0.80) 10^3/uL Eos # (Auto) 0.16 (0.10-0.30) 10^3/uL Baso # (Auto) 0.02 (0.00-0.10) 10^3/uL Immature Gran # (Auto) 0.00 (0.00-0.50) 10^3/uL Sodium 138 (136-145) mmol/L Potassium 4.5 (3.5-5.1) mmol/L Chloride 103 (98-107) mmol/L Carbon Dioxide 25.5 (21.0-32.0) mmol/L Anion Gap 14.0 (5-15) mmol/L BUN 25 H (7-18) mg/dL Creatinine 1.24 H (0.51-1.17) mg/dL Est Cr Clr Drug Dosing 62.65 mL/min Estimated GFR (MDRD) 58 mL/min Glucose 164 H (70-140) mg/dL POC Glucose 99 (74-106) mg/dl Calcium 8.5 L (8.7-10.3) mg/dL Med Orders - Current: Current Medications Acetaminophen (Acetaminophen 500 Mg Tab) 500 mg PO Q6H PRN PRN Reason: Pain Last Admin: 11/11/20 20:10 Dose: 500 mg Documented by: Atorvastatin Calcium (Atorvastatin 40 Mg Tab) 80 mg PO BEDTIME [facility] Last Admin: 11/14/20 21:09 Dose: 80 mg Documented by: Atropine Sulfate (Atropine 0.1 Mg/Ml 10 Ml Syringe) 0 mg IVPUSH ASDIRECTED PRN PRN Reason: Heart. Carvedilol (Carvedilol 6.25 Mg Tab) 6.25 mg PO BIDMEALS [facility] Last Admin: 11/15/20 08:16 Dose: 6.25 mg Documented by: Dextrose/Water (50% Dextrose In Water 50 Ml Syringe) 50 ml IV ASDIRECTED PRN PRN Reason: Hypoglycemia Epinephrine HCl (Epinephrine 1:10,000 1 Mg/10 Ml Syringe) 1 mg IVPUSH ASDIRECTED PRN PRN Reason: Heart. Finasteride (Finasteride 5 Mg Tab) 5 mg PO DAILY [facility] Last Admin: 11/15/20 08:16 Dose: 5 mg Documented by: Furosemide (Furosemide 20 Mg Tab) 20 mg PO DAILY [facility] Last Admin: 11/15/20 08:16 Dose: 20 mg Documented by: Glucagon (Glucagon,Human Recombinant 1 Mg Vial) 1 mg IM ASDIRECTED PRN PRN Reason: Hypoglycemia Hydrochlorothiazide (Hydrochlorothiazide 25 Mg Tab) 25 mg PO DAILY [facility] Last Admin: 11/15/20 08:17 Dose: 25 mg Documented by: Insulin Aspart (Insulin Aspart 100 Units/Ml 3 Ml Pen - Ptom) 0 unit SUBCUT WITHMEALSANDBED [facility]; Protocol Last Admin: 11/15/20 07:27 Dose: Not Given Documented by: Insulin Glargine (Lantus 100 Units/Ml 3 Ml Pen - Ptom) 30 units SUBCUT BEDTIME [facility] Last Admin: 11/14/20 21:12 Dose: 30 unit Documented by: Lactobacillus Rhamnosus (Lactobacillus Rhamnosus Gg (Probiotic) Cap) 1 cap PO DAILY [facility] Last Admin: 11/15/20 08:17 Dose: 1 cap Documented by: Lidocaine HCl (Lidocaine 2% 100 Mg/5 Ml Syringe) 0 mg IVPUSH ASDIRECTED PRN PRN Reason: Heart. Liraglutide (Victoza 18mg/3ml Pen Ptom) 1.8 mg SUBCUT DAILY [facility] Last Admin: 11/15/20 08:17 Dose: 1.8 mg Documented by: Losartan Potassium (Losartan 50 Mg Tab) 100 mg PO DAILY [facility] Last Admin: 11/15/20 08:16 Dose: 100 mg Documented by: Metformin HCl (Metformin 500 Mg Tab) 1,000 mg PO BIDMEALS [facility] Last Admin: 11/15/20 08:15 Dose: 1,000 mg Documented by: Nitroglycerin (Nitroglycerin 0.4 Mg Tab.Sl) 0.4 mg SL ASDIRECTED PRN PRN Reason: Heart. Omeprazole (Omeprazole 20 Mg Cap.Cr) 20 mg PO BID@0730,1730 [facility] Last Admin: 11/15/20 07:26 Dose: 20 mg Documented by: Potassium Chloride (Potassium Chloride 10 Meq Tab.Er) 10 meq PO DAILY [facility] Last Admin: 11/15/20 08:15 Dose: 10 meq Documented by: Rivaroxaban (Rivaroxaban 10 Mg Tab) 15 mg PO BID [facility] Last Admin: 11/15/20 08:16 Dose: 15 mg Documented by: Sodium Chloride (Sodium Chloride 0.9% 10 Ml Syringe) 10 ml FLUSH 06,15,23 PRN PRN Reason: keep vein open Tamsulosin HCl (Tamsulosin 0.4 Mg Cap.Er) 0.4 mg PO PCBREAKFAST [facility] Last Admin: 11/15/20 08:16 Dose: 0.4 mg Documented by: Tramadol HCl (Tramadol 50 Mg Tab) 50 mg PO Q6H PRN PRN Reason: Pain Last Admin: 11/13/20 16:49 Dose: 50 mg Documented by: Trimethoprim/Sulfamethoxazole (Sulfamethoxazole/Trimethoprim 800-160 Mg Tab) 1 tab PO DAILY [facility] Last Admin: 11/15/20 08:17 Dose: 1 tab Documented by: Vitamin B Complex (Vitamin B Complex Tab) 1 each PO DAILY [facility] Last Admin: 11/15/20 08:16 Dose: 1 each Documented by: Discontinued Medications Carvedilol (Carvedilol 12.5 Mg Tab Own Med) 12.5 mg PO BIDMEALS [facility] Last Admin: 11/14/20 08:55 Dose: Not Given Documented by: Carvedilol (Carvedilol 12.5 Mg Tab) 12.5 mg PO BIDMEALS [facility] Last Admin: 11/14/20 08:56 Dose: Not Given Documented by: Furosemide (Furosemide 40 Mg/4 Ml Vial) 40 mg IVPUSH BIDDIURETIC [facility] Last Admin: 11/11/20 09:15 Dose: 40 mg Documented by: Furosemide (Furosemide 40 Mg/4 Ml Vial) 20 mg IVPUSH BID [facility] Last Admin: 11/12/20 09:12 Dose: 20 mg Documented by: Furosemide (Furosemide 20 Mg Tab) 20 mg PO 1400 [facility] Last Admin: 11/12/20 18:22 Dose: Not Given Documented by: Insulin Aspart (Insulin Aspart 100 Units/Ml 3 Ml Pen Own Med) [facility]; Protocol Last Admin: 11/14/20 08:56 Dose: Not Given Documented by: Insulin Aspart (Insulin Aspart 100 Units/Ml 3 Ml Pen) 0 unit SUBCUT WITHMEALSANDBED [facility]; Protocol Last Admin: 11/14/20 08:22 Dose: Not Given Documented by: Insulin Glargine (Lantus 100 Units/Ml 3 Ml Pen Own Med) 0 units SUBCUT BEDTIME [facility] Last Admin: 11/13/20 21:25 Dose: 30 unit Documented by: Liraglutide (Victoza 18mg/3ml Pen Own Med) 1.8 mg SUBCUT DAILY [facility] Last Admin: 11/13/20 08:30 Dose: 1.8 mg Documented by: Metformin Hcl 1,000 (Mg Own Med) 0 mg PO BIDMEALS [facility] Last Admin: 11/14/20 08:55 Dose: Not Given Documented by: Omeprazole (Omeprazole 20 Mg Cap.Cr Own Med) 20 mg PO ACBREAKFAST [facility] Last Admin: 11/12/20 07:56 Dose: 20 mg Documented by: Omeprazole (Omeprazole 20 Mg Cap.Cr) 20 mg PO BID [facility] Last Admin: 11/13/20 08:22 Dose: Not Given Documented by: Omeprazole (Omeprazole 20 Mg Cap.Cr) 20 mg PO BID@0730,1730 [facility] Last Admin: 11/14/20 08:44 Dose: Not Given Documented by: Atorvastatin 80 Mg (Tab Own Med) 0 each PO BEDTIME [facility] Last Admin: 11/13/20 21:24 Dose: 1 each Documented by: Potassium Chloride (Potassium Chloride 10 Meq Tab.Er Own Med) 10 meq PO DAILY [facility] Last Admin: 11/13/20 08:21 Dose: 10 meq Documented by: Trimethoprim/Sulfamethoxazole (Sulfamethoxazole/Trimethoprim 800-160 Mg Tab Own Med) 1 tab PO DAILY [facility] Last Admin: 11/13/20 08:20 Dose: 1 tab Documented by: Vitamin B Complex (Vitamin B Complex Tab Own Med) 1 each PO DAILY [facility] Last Admin: 11/13/20 08:22 Dose: 1 each Documented by: - Exam Physical Findings Comments:: GENERAL: Well-appearing elderly white male lying in hospital bed in no acute distress. at bedisde. HEENT: Normocephalic, atraumatic. Conjunctiva clear. Nares patent without discharge. Mucous membranes moist. NECK: Supple, no masses. CV: Regular rate and rhythm, 2/6 systolic murmur at base, no rubs or gallops. 2+ radial pulses. PULMONARY: Normal effort, clear to auscultation bilaterally, no wheezes, rales, or rhonchi. ABDOMEN: Positive bowel sounds, soft, nontender, nondistended. EXTREMITIES: 1+ pitting edema of the bilateral lower extremities with compression stockings in place. MUSCULOSKELETAL: Moves all extremities well. NEUROLOGICAL: No obvious deficits. DERMATOLOGIC: No rashes or suspicious lesions in exposed areas. PSYCHIATRIC: Alert, interactive, appropriate affect. - Patient Data Lab Results Last 24 hrs: Laboratory Results - last 24 hr 11/14/20 11/14/20 11/14/20 Range/Units 11:53 17:33 21:03 WBC (5.00-10.00) 10^3/uL RBC (4.50-6.00) 10^6/uL Hgb (13.0-17.0) g/dL Hct (40.0-52.0) % MCV (82.0-92.0) fL MCH (27.0-31.0) pg MCHC (32.0-36.0) g/dL RDW (11.5-14.5) % Plt Count (150-400) 10^3/uL MPV (7.4-10.4) fL Immature Gran % (Auto) (0.0-5.0) % Neut % (Auto) (50.0-70.0) % Lymph % (Auto) (20.0-40.0) % Emmet % (Auto) (2.0-8.0) % Eos % (Auto) (1.0-3.0) % Baso % (Auto) (0.0-1.0) % Neut # (Auto) (2.50-7.00) 10^3/uL Lymph # (Auto) (1.00-4.00) 10^3/uL Emmet # (Auto) (0.10-0.80) 10^3/uL Eos # (Auto) (0.10-0.30) 10^3/uL Baso # (Auto) (0.00-0.10) 10^3/uL Immature Gran # (Auto) (0.00-0.50) 10^3/uL Sodium (136-145) mmol/L Potassium (3.5-5.1) mmol/L Chloride (98-107) mmol/L Carbon Dioxide (21.0-32.0) mmol/L Anion Gap (5-15) mmol/L BUN (7-18) mg/dL Creatinine (0.51-1.17) mg/dL Est Cr Clr Drug Dosing mL/min Estimated GFR (MDRD) mL/min Glucose (70-140) mg/dL POC Glucose 124 H 109 H 111 H (74-106) mg/dl Calcium (8.7-10.3) mg/dL 11/15/20 11/15/20 11/15/20 Range/Units 07:26 10:05 10:05 WBC 4.29 L (5.00-10.00) 10^3/uL RBC 3.14 L (4.50-6.00) 10^6/uL Hgb 8.4 L (13.0-17.0) g/dL Hct 26.3 L (40.0-52.0) % MCV 83.8 (82.0-92.0) fL MCH 26.8 L (27.0-31.0) pg MCHC 31.9 L (32.0-36.0) g/dL RDW 15.5 H (11.5-14.5) % Plt Count 114 L (150-400) 10^3/uL MPV 8.9 (7.4-10.4) fL Immature Gran % (Auto) 0.0 (0.0-5.0) % Neut % (Auto) 66.6 (50.0-70.0) % Lymph % (Auto) 21.0 (20.0-40.0) % Emmet % (Auto) 8.2 H (2.0-8.0) % Eos % (Auto) 3.7 H (1.0-3.0) % Baso % (Auto) 0.5 (0.0-1.0) % Neut # (Auto) 2.86 (2.50-7.00) 10^3/uL Lymph # (Auto) 0.90 L (1.00-4.00) 10^3/uL Emmet # (Auto) 0.35 (0.10-0.80) 10^3/uL Eos # (Auto) 0.16 (0.10-0.30) 10^3/uL Baso # (Auto) 0.02 (0.00-0.10) 10^3/uL Immature Gran # (Auto) 0.00 (0.00-0.50) 10^3/uL Sodium 138 (136-145) mmol/L Potassium 4.5 (3.5-5.1) mmol/L Chloride 103 (98-107) mmol/L Carbon Dioxide 25.5 (21.0-32.0) mmol/L Anion Gap 14.0 (5-15) mmol/L BUN 25 H (7-18) mg/dL Creatinine 1.24 H (0.51-1.17) mg/dL Est Cr Clr Drug Dosing 62.65 mL/min Estimated GFR (MDRD) 58 mL/min Glucose 164 H (70-140) mg/dL POC Glucose 99 (74-106) mg/dl Calcium 8.5 L (8.7-10.3) mg/dL Result Diagrams: 11/15/20 10:05 11/15/20 10:05 Sepsis Event Note - Evaluation Sepsis Screening Result: No Definite Risk - Focused Exam Vital Signs: Vital Signs Temp Pulse Pulse Resp BP BP Pulse Ox 11/15/20 11:00 36.6 C 82 16 127/55 L 93 L 11/15/20 08:16 80 139/70 11/15/20 06:24 36.3 C 78 20 125/59 L 93 L 11/15/20 03:00 36.2 C 81 20 117/54 L 94 L - Problem List Review Problem List Initiated/Reviewed/Updated: Yes - Assessment Assessment:: T - Plan Plan:: HPI summary: Mr. Francisco is a 70yoM who was admitted most recently by PCP Dr. Catherine Sotelo after evaluation at [facility] due to worsening shortness of breath and concern for fluid overload. Pertinent history prior to this hospitalization include being hospitalized at [facility] 10/26/20-10/28/20 for acute blood loss anemia and melanotic stools. EGD noted a medium-sized hiatal hernia, White's stage C2-M5, and non-bleeding erosive gastropathy. Colonoscopy noted poor prep, however negative with a repeat recommended in 1 year. Echo showed EF 55%, grade 2 diastolic dysfunction, and mild aortic stenosis. Recommendations included holding both Xarelto and Plavix for about 2 weeks post discharge and starting on omeprazole 20 mg BID. On 11/06/20, he was evaluated by PCP Dr. Catherine Sotelo who consulted with cardiology reg arding symptoms felt to be stable angina pectoris and low hemoglobin. He was given 1 unit of PRBCs on 11/07/20 with goal hemoglobin of 10 due to his CV profile. He was then hospitalized from 11/08/20-11/10/20 for presyncope and dehydration. He received IVF and PRBCs 1 unit. He was discharged home in stable condition but presented to the clinic a few hours after discharge with reportedly worsening of swelling and shortness of breath on exertion. Patient states he did not notice any fluid retention until after he had returned home. Notable initial hospital course: He states that he normally weighs around 280 lb on his home scale. [place] records note a variable baseline weight of around 285-294 recently. Admission weight of 299 lb. Chest x-ray was done without evidence of acute cardiopulmonary abnormality. BNP was done and was normal. EKG done with no acute changes. Troponin negative. Patient was admitted for IV diuresis and received Lasix 40mg IV BID. US obtained revealing DVT of the RLE and LLE for which he was restarted on anticoagulation with rivaroxaban. Hospitalization problems and plan: # Acute DVT, RLE common femoral and popliteal and LLE common femoral # Hx DVT/PE # S/p IVF filter, 1995 # Chronic heart failure with preserved ejection fraction: 10/2020 echo with EF 55% and grade 2 diastolic dysfunction. # Fluid retention No evidence of acute heart failure, but instead with fluid retention related to DVT. Improving status, but still with pitting edema to the bilateral lower extremities most notable in the thighs. - Continue rivaroxaban - Increase furosemide to 20mg po BID - Continue potassium chloride 10mEq daily - Recheck BMP tomorrow - Daily weight # Acute blood loss anemia: Generally stable. No known active bleeding. # White's esophagus without dysplasia - Restart iron qod - Continue omeprazole 20mg BID - Recheck CBC tomorrow # Debility/deconditioning # Generalized pain - Continue physical therapy - Continue acetaminophen and tramadol prn (none needed in >48hrs) Chronic, stable conditions: # CAD s/p CABG: Denies angina. Continue carvedilol 6.25mg BID, nitroglycerin prn. # HTN: Controlled. Continue losartan 100mg-HCTZ 25mg daily. # Aortic stenosis: 10/2020 echo with mean gradient 14mmHg. # BPH: Stable. Continue tamsulosin 0.4mg daily, finasteride 5mg daily. # DMT2: BGs controlled. Recent A1c 6.3% when insulin changes were made. Hx of hypoglycemia unawareness. Continue metformin 1000mg BID, liraglutide 1.8mg daily, Lantus 30un daily, and NovoLog low dose sliding scale. # HLD: Continue atorvastatin 80mg daily. # Insomnia: Stable. Continue amitriptyline prn. Hospitalization details: # FEN: No IVF. Electrolytes normal. Heart healthy diet. # PPX: On rivaroxaban for DVT, as above. # Code status: FULL. # Emergency contact: , Elaina, who was updated at bedside. # Disposition: Continue inpatient status for medication adjustments with increased diuretics and restarting iron with recheck of labs tomorrow, as above. Anticipate discharge to home tomorrow.
[2020-11-15] MEDS ORDERED: Iron Polysaccharides Complex 150 MG Cap PO SCH (13:00)
[2020-11-15] MEDS ORDERED: Furosemide 20 MG Tab PO ONE (14:00)
[2020-11-15] MEDS: atorvaSTATin 40 MG Tab PO SCH (20:01)
[2020-11-15] MEDS: LANTUS 100 UNIT/ML SUBCUT SCH (20:55)
[2020-11-16] MEDS: INSULIN ASPART 100 UNIT/ML SUBCUT SCH (07:48)
[2020-11-16] MEDS: Omeprazole 20 MG Cap.CR PO SCH (07:48)
[2020-11-16] MEDS: Potassium Chloride 10 MEQ Tab.ER PO SCH (08:16)
[2020-11-16] MEDS: VICTOZA 18 MG/3 ML SUBCUT SCH (08:16)
[2020-11-16] MEDS: Lactobacillus Rhamnosus GG (Probiotic) Cap PO SCH (08:16)
[2020-11-16] MEDS: Finasteride 5 MG Tab PO SCH (08:16)
[2020-11-16] MEDS: Rivaroxaban 10 MG Tab PO SCH (08:16)
[2020-11-16] MEDS: Hydrochlorothiazide 25 MG Tab PO SCH (08:16)
[2020-11-16] MEDS: Carvedilol 6.25 MG Tab PO SCH (08:17)
[2020-11-16] MEDS: metFORMIN 500 MG Tab PO SCH (08:17)
[2020-11-16] MEDS: Tamsulosin 0.4 MG Cap.ER PO SCH (08:17)
[2020-11-16] MEDS: Losartan 50 MG Tab PO SCH (08:17)
[2020-11-16] MEDS: Furosemide 20 MG Tab PO SCH (08:17)
[2020-11-16] MEDS: Vitamin B Complex Tab PO SCH (08:17)
[2020-11-16 08:18] VITALS: BP 150/66; PULSE 80
[2020-11-16] MEDS: Sulfamethoxazole/Trimethoprim 800-160 MG Tab PO SCH (08:18)
[2020-11-16 08:19] LABS: ANION GAP 14.8 mmol/L (5-15)
--- NOTE | 2020-11-16 09:18 | PCM.DCSUM1 ---
Discharge Summary - Hospital Course Diagnosis: Stroke: No - Discharge Data Discharge Date: 11/16/20 Discharge Disposition: Home, Self-Care 01 Condition: Good - Referral to Home Health Primary Care Physician: Kizzy Sotelo MD - Patient Instructions Diet: Heart Healthy Diet, Drink 8-10+ Glasses/Day Activity: As Tolerated Driving: May Drive Today Showering/Bathing: May Shower Notify Provider of: Fever, Increased Pain, Nausea and/or Vomiting Other/Special Instructions: Follow-up if any worsening of symptoms including increase swelling, shortness of breath, dizziness, chest pain, and/or any additional concerns arises. Wear thigh high stockings - Discharge Plan *PRESCRIPTION DRUG MONITORING PROGRAM REVIEWED*: Not Applicable *COPY OF PRESCRIPTION DRUG MONITORING REPORT IN PATIENT ISABEL: Not Applicable Prescriptions/Med Rec: Potassium Chloride [Klor-Con 10] 10 meq PO DAILY #30 tab.er Iron Ag,Ps/C/Fa6/B12/Zn/SA/Sto [Niferex Tablet] 1 each PO ASDIRECTED #30 tablet Clopidogrel Bisulfate [Plavix] 75 mg PO DAILY #30 tablet Rivaroxaban [Xarelto] 15 mg PO BID #90 tablet Rivaroxaban [Xarelto] 15 mg PO BID #33 tab Home Medications: Home Meds metFORMIN [Glucophage] 1,000 mg PO BID 09/12/14 [History] Insulin Aspart [NovoLOG] 0 unit SUBCUT QIDACANDBED PRN 08/02/16 [History] atorvaSTATin [Lipitor] 80 mg PO DAILY 09/19/16 [History] Amitriptyline [Elavil] 25 mg PO BEDTIME 02/18/19 [History] Finasteride 5 mg PO DAILY 02/18/19 [History] Nitroglycerin 0.4 mg SL ASDIRECTED PRN 02/18/19 [History] Tamsulosin HCl 0.4 mg PO DAILY 02/18/19 [History] Acetaminophen 500 mg PO Q4H PRN 04/15/19 [History] Liraglutide [Victoza] 1.8 mg SUBCUT DAILY 04/15/19 [History] Clindamycin Phosphate [Cleocin T 1% Lotion] 1 applic TOP BID PRN 12/23/19 [History] Vitamin B Complex 1 cap PO DAILY 12/23/19 [History] Sulfamethoxazole/Trimethoprim [Bactrim Ds Tablet] 1 tab PO DAILY 12/24/19 [History] Urea/Hydrophilic Cream [Betamide] 1 applic TOP BID PRN 12/24/19 [History] Lactobacillus 3/Fos/Pantethine [Probiotic & Acidophilus] 1 cap PO DAILY 11/08/20 [History] Losartan/Hydrochlorothiazide [Hyzaar 100-25 Tablet] 1 tab PO DAILY 11/08/20 [History] Omeprazole 20 mg PO BIDAC 11/08/20 [History] Insulin Glarg,Human.Rec.Analog [Lantus Solostar] 30 units SQ BEDTIME #0 11/10/20 [Rx] carvediloL [Carvedilol] 6.25 mg PO BID #1 11/10/20 [Rx] Furosemide [Lasix] 20 mg PO 1400 tablet 11/12/20 [Rx] Potassium Chloride [Klor-Con 10] 10 meq PO DAILY #30 tab.er 11/12/20 [Rx] Iron Ag,Ps/C/Fa6/B12/Zn/SA/Sto [Niferex Tablet] 1 each PO ASDIRECTED #30 tablet 11/15/20 [Rx] Rivaroxaban [Xarelto] 15 mg PO BID #90 tablet 11/15/20 [Rx] Clopidogrel Bisulfate [Plavix] 75 mg PO DAILY #30 tablet 11/16/20 [Rx] Rivaroxaban [Xarelto] 15 mg PO BID #33 tab 11/16/20 [Rx] Oxygen Therapy Mode: Room Air Referrals: Aman Mccloud, CLINICAL LABORATORY AIDE [Nurse Practitioner] - 11/21/20 (OR any day next week) - Discharge Summary/Plan Comment DC Time >30 min.: Yes Discharge Summary/Plan Comment: Final diagnosis # Acute DVT, RLE common femoral and popliteal and LLE common femoral # Hx DVT/PE # S/p IVF filter, 1995 # Chronic heart failure with preserved ejection fraction: 10/2020 echo with EF 55% and grade 2 diastolic dysfunction. # Fluid retention, much improved # Acute blood loss anemia: Generally stable. No known active bleeding. # White's esophagus without dysplasia, on PPI # Debility/deconditioning, mild PT not needed # Generalized pain, improved. Chronic, stable conditions: # CAD s/p CABG: Denies angina. Continue carvedilol 6.25mg BID, nitroglycerin prn. # HTN: Controlled. Continue losartan 100mg-HCTZ 25mg daily. # Aortic stenosis: 10/2020 echo with mean gradient 14mmHg. # BPH: Stable. Continue tamsulosin 0.4mg daily, finasteride 5mg daily. # DMT2: BGs controlled. Recent A1c 6.3% when insulin changes were made. Hx of hypoglycemia unawareness. Continue metformin 1000mg BID, liraglutide 1.8mg daily, Lantus 30un daily, and NovoLog low dose sliding scale. # HLD: Continue atorvastatin 80mg daily. # Insomnia: Stable. Continue amitriptyline prn. HPI summary: Mr. Francisco is a 70yoM who was admitted most recently by PCP Dr. Catherine Sotelo after evaluation at [facility] due to worsening shortness of breath and concern for fluid overload. Pertinent history prior to this hospitalization include being hospitalized at [facility] 10/26/20-10/28/20 for acute blood loss anemia and me lanotic stools. EGD noted a medium-sized hiatal hernia, White's stage C2-M5, and non-bleeding erosive gastropathy. Colonoscopy noted poor prep, however negative with a repeat recommended in 1 year. Echo showed EF 55%, grade 2 diastolic dysfunction, and mild aortic stenosis. Recommendations included holding both Xarelto and Plavix for about 2 weeks post discharge and starting on omeprazole 20 mg BID. On 11/06/20, he was evaluated by PCP Dr. Catherine Sotelo who consulted with cardiology regarding symptoms felt to be stable angina pectoris and low hemoglobin. He was given 1 unit of PRBCs on 11/07/20 with goal hemoglobin of 10 due to his CV profile. He was then hospitalized from 11/08/20-11/10/20 for presyncope and dehydration. He received IVF and PRBCs 1 unit. He was discharged home in stable condition but presented to the clinic a few hours after discharge with reportedly worsening of swelling and shortness of breath on exertion. Patient states he did not notice any fluid retention until after he had returned home. Notable initial hospital course: He states that he normally weighs around 280 lb on his home scale. [place] records note a variable baseline weight of around 285-294 recently. Admission weight of 299 lb. Chest x-ray was done without evidence of acute cardiopulmonary abnormality. BNP was done and was normal. EKG done with no acute changes. Troponin negative. Patient was admitted for IV diuresis and received Lasix 40mg IV BID. US obtained revealing DVT of the RLE and LLE for which he was restarted on anticoagulation with rivaroxaban. Day as discharge his hemoglobin was 9.7. He had no pain, he was ambulating on the floor quite extensively, no shortness of breath. To diurese with negative output, weight loss 1 and half pounds since yesterday Medication changes/adjustments upon discharge Xarelto, continue with 15 mg p.o. twice daily then will transition into 20 mg daily Clopidogrel, restart 75 mg p.o. daily Considerations at follow-up Discuss Reducing Metformin Determine GI follow-up requirements Reassess patient education regarding proper PPI use Discuss weight loss efforts/referrals - General Info Functional Status: Reports: Pain Controlled - Review of Systems General: Reports: No Symptoms HEENT: Reports: No Symptoms Pulmonary: Reports: No Symptoms Cardiovascular: Reports: Edema. Denies: Chest Pain Gastrointestinal: Reports: No Symptoms Genitourinary: Reports: No Symptoms Psychiatric: Reports: No Symptoms - Patient Data Vitals - Most Recent: Last Vital Signs Temp 97.1 F 11/16/20 06:06 Pulse 80 11/16/20 08:17 Resp 18 11/16/20 06:06 BP 150/66 H 11/16/20 08:17 Pulse Ox 100 11/16/20 06:06 Orthostatic Blood Pressure [ 125/60 Standing] Orthostatic Blood Pressure [ 158/58 Sitting] Orthostatic Blood Pressure [ 147/70 Supine] Weight - Most Recent: 292 lb 1.6 oz I&O - Last 24 hours: Intake & Output 11/15/20 11/16/20 11/16/20 22:59 06:59 14:59 Intake Total 650 300 Output Total 1100 1575 Balance -450 -1275 Lab Results - Last 24 hrs: Laboratory Results - last 24 hr 11/15/20 11/15/20 11/15/20 Range/Units 10:05 10:05 11:52 WBC 4.29 L (5.00-10.00) 10^3/uL RBC 3.14 L (4.50-6.00) 10^6/uL Hgb 8.4 L (13.0-17.0) g/dL Hct 26.3 L (40.0-52.0) % MCV 83.8 (82.0-92.0) fL MCH 26.8 L (27.0-31.0) pg MCHC 31.9 L (32.0-36.0) g/dL RDW 15.5 H (11.5-14.5) % Plt Count 114 L (150-400) 10^3/uL MPV 8.9 (7.4-10.4) fL Immature Gran % (Auto) 0.0 (0.0-5.0) % Neut % (Auto) 66.6 (50.0-70.0) % Lymph % (Auto) 21.0 (20.0-40.0) % [place] % (Auto) 8.2 H (2.0-8.0) % Eos % (Auto) 3.7 H (1.0-3.0) % Baso % (Auto) 0.5 (0.0-1.0) % Neut # (Auto) 2.86 (2.50-7.00) 10^3/uL Lymph # (Auto) 0.90 L (1.00-4.00) 10^3/uL [place] # (Auto) 0.35 (0.10-0.80) 10^3/uL Eos # (Auto) 0.16 (0.10-0.30) 10^3/uL Baso # (Auto) 0.02 (0.00-0.10) 10^3/uL Immature Gran # (Auto) 0.00 (0.00-0.50) 10^3/uL Sodium 138 (136-145) mmol/L Potassium 4.5 (3.5-5.1) mmol/L Chloride 103 (98-107) mmol/L Carbon Dioxide 25.5 (21.0-32.0) mmol/L Anion Gap 14.0 (5-15) mmol/L BUN 25 H (7-18) mg/dL Creatinine 1.24 H (0.51-1.17) mg/dL Est Cr Clr Drug Dosing 62.65 mL/min Estimated GFR (MDRD) 58 mL/min Glucose 164 H (70-140) mg/dL POC Glucose 144 H (74-106) mg/dl Calcium 8.5 L (8.7-10.3) mg/dL 11/15/20 11/15/20 11/16/20 Range/Units 17:41 20:51 07:25 WBC 4.37 L (5.00-10.00) 10^3/uL RBC 3.62 L (4.50-6.00) 10^6/uL Hgb 9.7 L (13.0-17.0) g/dL Hct 30.4 L (40.0-52.0) % MCV 84.0 (82.0-92.0) fL MCH 26.8 L (27.0-31.0) pg MCHC 31.9 L (32.0-36.0) g/dL RDW 15.7 H (11.5-14.5) % Plt Count 165 (150-400) 10^3/uL MPV 9.1 (7.4-10.4) fL Immature Gran % (Auto) 0.0 (0.0-5.0) % Neut % (Auto) 65.0 (50.0-70.0) % Lymph % (Auto) 22.9 (20.0-40.0) % [place] % (Auto) 8.2 H (2.0-8.0) % Eos % (Auto) 3.2 H (1.0-3.0) % Baso % (Auto) 0.7 (0.0-1.0) % Neut # (Auto) 2.84 (2.50-7.00) 10^3/uL Lymph # (Auto) 1.00 (1.00-4.00) 10^3/uL [place] # (Auto) 0.36 (0.10-0.80) 10^3/uL Eos # (Auto) 0.14 (0.10-0.30) 10^3/uL Baso # (Auto) 0.03 (0.00-0.10) 10^3/uL Immature Gran # (Auto) 0.00 (0.00-0.50) 10^3/uL Sodium (136-145) mmol/L Potassium (3.5-5.1) mmol/L Chloride (98-107) mmol/L Carbon Dioxide (21.0-32.0) mmol/L Anion Gap (5-15) mmol/L BUN (7-18) mg/dL Creatinine (0.51-1.17) mg/dL Est Cr Clr Drug Dosing mL/min Estimated GFR (MDRD) mL/min Glucose (70-140) mg/dL POC Glucose 255 H 104 (74-106) mg/dl Calcium (8.7-10.3) mg/dL 11/16/20 11/16/20 Range/Units 07:25 07:41 WBC (5.00-10.00) 10^3/uL RBC (4.50-6.00) 10^6/uL Hgb (13.0-17.0) g/dL Hct (40.0-52.0) % MCV (82.0-92.0) fL MCH (27.0-31.0) pg MCHC (32.0-36.0) g/dL RDW (11.5-14.5) % Plt Count (150-400) 10^3/uL MPV (7.4-10.4) fL Immature Gran % (Auto) (0.0-5.0) % Neut % (Auto) (50.0-70.0) % Lymph % (Auto) (20.0-40.0) % [place] % (Auto) (2.0-8.0) % Eos % (Auto) (1.0-3.0) % Baso % (Auto) (0.0-1.0) % Neut # (Auto) (2.50-7.00) 10^3/uL Lymph # (Auto) (1.00-4.00) 10^3/uL [place] # (Auto) (0.10-0.80) 10^3/uL Eos # (Auto) (0.10-0.30) 10^3/uL Baso # (Auto) (0.00-0.10) 10^3/uL Immature Gran # (Auto) (0.00-0.50) 10^3/uL Sodium 140 (136-145) mmol/L Potassium 4.2 (3.5-5.1) mmol/L Chloride 102 (98-107) mmol/L Carbon Dioxide 27.4 (21.0-32.0) mmol/L Anion Gap 14.8 (5-15) mmol/L BUN 21 H (7-18) mg/dL Creatinine 1.31 H (0.51-1.17) mg/dL Est Cr Clr Drug Dosing 59.30 mL/min Estimated GFR (MDRD) 54 mL/min Glucose 95 (70-140) mg/dL POC Glucose 89 (74-106) mg/dl Calcium 8.8 (8.7-10.3) mg/dL Med Orders - Current: Current Medications Acetaminophen (Acetaminophen 500 Mg Tab) 500 mg PO Q6H PRN PRN Reason: Pain Last Admin: 11/11/20 20:10 Dose: 500 mg Documented by: Atorvastatin Calcium (Atorvastatin 40 Mg Tab) 80 mg PO BEDTIME [facility] Last Admin: 11/15/20 20:01 Dose: 80 mg Documented by: Atropine Sulfate (Atropine 0.1 Mg/Ml 10 Ml Syringe) 0 mg IVPUSH ASDIRECTED PRN PRN Reason: Heart. Carvedilol (Carvedilol 6.25 Mg Tab) 6.25 mg PO BIDMEALS [facility] Last Admin: 11/16/20 08:17 Dose: 6.25 mg Documented by: Dextrose/Water (50% Dextrose In Water 50 Ml Syringe) 50 ml IV ASDIRECTED PRN PRN Reason: Hypoglycemia Epinephrine HCl (Epinephrine 1:10,000 1 Mg/10 Ml Syringe) 1 mg IVPUSH ASDIRECTED PRN PRN Reason: Heart. Finasteride (Finasteride 5 Mg Tab) 5 mg PO DAILY [facility] Last Admin: 11/16/20 08:16 Dose: 5 mg Documented by: Furosemide (Furosemide 20 Mg Tab) 20 mg PO DAILY [facility] Last Admin: 11/16/20 08:17 Dose: 20 mg Documented by: Glucagon (Glucagon,Human Recombinant 1 Mg Vial) 1 mg IM ASDIRECTED PRN PRN Reason: Hypoglycemia Hydrochlorothiazide (Hydrochlorothiazide 25 Mg Tab) 25 mg PO DAILY [facility] Last Admin: 11/16/20 08:16 Dose: 25 mg Documented by: Insulin Aspart (Insulin Aspart 100 Units/Ml 3 Ml Pen - Ptom) 0 unit SUBCUT WITHMEALSANDBED [facility]; Protocol Last Admin: 11/16/20 07:48 Dose: Not Given Documented by: Insulin Glargine (Lantus 100 Units/Ml 3 Ml Pen - Ptom) 30 units SUBCUT BEDTIME [facility] Last Admin: 11/15/20 20:55 Dose: 30 unit Documented by: Lactobacillus Rhamnosus (Lactobacillus Rhamnosus Gg (Probiotic) Cap) 1 cap PO DAILY [facility] Last Admin: 11/16/20 08:16 Dose: 1 cap Documented by: Lidocaine HCl (Lidocaine 2% 100 Mg/5 Ml Syringe) 0 mg IVPUSH ASDIRECTED PRN PRN Reason: Heart. Liraglutide (Victoza 18mg/3ml Pen Ptom) 1.8 mg SUBCUT DAILY [facility] Last Admin: 11/16/20 08:16 Dose: 1.8 mg Documented by: Losartan Potassium (Losartan 50 Mg Tab) 100 mg PO DAILY [facility] Last Admin: 11/16/20 08:17 Dose: 100 mg Documented by: Metformin HCl (Metformin 500 Mg Tab) 1,000 mg PO BIDMEALS [facility] Last Admin: 11/16/20 08:17 Dose: 1,000 mg Documented by: Nitroglycerin (Nitroglycerin 0.4 Mg Tab.Sl) 0.4 mg SL ASDIRECTED PRN PRN Reason: Heart. Omeprazole (Omeprazole 20 Mg Cap.Cr) 20 mg PO BID@0730,1730 [facility] Last Admin: 11/16/20 07:48 Dose: 20 mg Documented by: Polysaccharide Iron Complex (Iron Polysaccharides Complex 150 Mg Cap) 150 mg PO MoWeFr [facility] Last Admin: 11/15/20 13:08 Dose: 150 mg Documented by: Potassium Chloride (Potassium Chloride 10 Meq Tab.Er) 10 meq PO DAILY [facility] Last Admin: 11/16/20 08:16 Dose: 10 meq Documented by: Rivaroxaban (Rivaroxaban 10 Mg Tab) 15 mg PO BID [facility] Last Admin: 11/16/20 08:16 Dose: 15 mg Documented by: Sodium Chloride (Sodium Chloride 0.9% 10 Ml Syringe) 10 ml FLUSH 06,15, PRN PRN Reason: keep vein open Tamsulosin HCl (Tamsulosin 0.4 Mg Cap.Er) 0.4 mg PO PCBREAKFAST [facility] Last Admin: 11/16/20 08:17 Dose: 0.4 mg Documented by: Tramadol HCl (Tramadol 50 Mg Tab) 50 mg PO Q6H PRN PRN Reason: Pain Last Admin: 11/13/20 16:49 Dose: 50 mg Documented by: Trimethoprim/Sulfamethoxazole (Sulfamethoxazole/Trimethoprim 800-160 Mg Tab) 1 tab PO DAILY [facility] Last Admin: 11/16/20 08:18 Dose: 1 tab Documented by: Vitamin B Complex (Vitamin B Complex Tab) 1 each PO DAILY [facility] Last Admin: 11/16/20 08:17 Dose: 1 each Documented by: Discontinued Medications Carvedilol (Carvedilol 12.5 Mg Tab Own Med) 12.5 mg PO BIDMEALS [facility] Last Admin: 11/14/20 08:55 Dose: Not Given Documented by: Carvedilol (Carvedilol 12.5 Mg Tab) 12.5 mg PO BIDMEALS [facility] Last Admin: 11/14/20 08:56 Dose: Not Given Documented by: Furosemide (Furosemide 40 Mg/4 Ml Vial) 40 mg IVPUSH BIDDIURETIC [facility] Last Admin: 11/11/20 09:15 Dose: 40 mg Documented by: Furosemide (Furosemide 40 Mg/4 Ml Vial) 20 mg IVPUSH BID [facility] Last Admin: 11/12/20 09:12 Dose: 20 mg Documented by: Furosemide (Furosemide 20 Mg Tab) 20 mg PO 1400 [facility] Last Admin: 11/12/20 18:22 Dose: Not Given Documented by: Furosemide (Furosemide 20 Mg Tab) 20 mg PO ONETIME ONE Stop: 11/15/20 14:01 Last Admin: 11/15/20 13:08 Dose: 20 mg Documented by: Insulin Aspart (Insulin Aspart 100 Units/Ml 3 Ml Pen Own Med) 0 unit SUBCUT WITHMEALSANDBED [facility]; Protocol Last Admin: 11/14/20 08:56 Dose: Not Given Documented by: Insulin Aspart (Insulin Aspart 100 Units/Ml 3 Ml Pen) 0 unit SUBCUT WITHMEALSANDBED [facility]; Protocol Last Admin: 11/14/20 08:22 Dose: Not Given Documented by: Insulin Glargine (Lantus 100 Units/Ml 3 Ml Pen Own Med) 0 units SUBCUT BEDTIME [facility] Last Admin: 11/13/20 21:25 Dose: 30 unit Documented by: Liraglutide (Victoza 18mg/3ml Pen Own Med) 1.8 mg SUBCUT DAILY [facility] Last Admin: 11/13/20 08:30 Dose: 1.8 mg Documented by: Metformin Hcl 1,000 (Mg Own Med) 0 mg PO BIDMEALS [facility] Last Admin: 11/14/20 08:55 Dose: Not Given Documented by: Omeprazole (Omeprazole 20 Mg Cap.Cr Own Med) 20 mg PO ACBREAKFAST [facility] Last Admin: 11/12/20 07:56 Dose: 20 mg Documented by: Omeprazole (Omeprazole 20 Mg Cap.Cr) 20 mg PO BID [facility] Last Admin: 11/13/20 08:22 Dose: Not Given Documented by: Omeprazole (Omeprazole 20 Mg Cap.Cr) 20 mg PO BID@0730,1730 [facility] Last Admin: 11/14/20 08:44 Dose: Not Given Documented by: Atorvastatin 80 Mg (Tab Own Med) 0 each PO BEDTIME [facility] Last Admin: 11/13/20 21:24 Dose: 1 each Documented by: Potassium Chloride (Potassium Chloride 10 Meq Tab.Er Own Med) 10 meq PO DAILY [facility] Last Admin: 11/13/20 08:21 Dose: 10 meq Documented by: Trimethoprim/Sulfamethoxazole (Sulfamethoxazole/Trimethoprim 800-160 Mg Tab Own Med) 1 tab PO DAILY [facility] Last Admin: 11/13/20 08:20 Dose: 1 tab Documented by: Vitamin B Complex (Vitamin B Complex Tab Own Med) 1 each PO DAILY [facility] Last Admin: 11/13/20 08:22 Dose: 1 each Documented by: - Exam Quality Assessment: Reports: DVT Prophylaxis. Denies: Supplemental Oxygen General: Reports: Alert, Oriented, Cooperative, No Acute Distress Lungs: Reports: Clear to Auscultation, Normal Respiratory Effort Cardiovascular: Reports: Regular Rate, Regular Rhythm, Murmurs GI/Abdominal Exam: Normal Bowel Sounds, Soft Rectal (Males) Exam: No: Black Stool Extremities: No Pedal Edema Neurological: Reports: No New Focal Deficit Psy/Mental Status: Reports: Alert
== END 2020-11-16 11:00 | disposition home or self-care (01) | DRG 197 ==
LOC: KA.MS 18:02 → UNDOADMOB 18:11 → KA.MS 18:11 → OBSVTOIN 11-13 22:15
PROVIDERS: ADMIT Nurse Practitioner Family; ATTEND Family Medicine
DX: I82.413 Acute embolism and thrombosis of femoral vein, bilateral (principal); I82.431 Acute embolism and thrombosis of right popliteal vein; D50.0 Iron deficiency anemia secondary to blood loss (chronic); I50.22 Chronic systolic (congestive) heart failure; K22.70 Barrett's esophagus without dysplasia; I35.0 Nonrheumatic aortic (valve) stenosis; K31.9 Disease of stomach and duodenum, unspecified; I11.0 Hypertensive heart disease with heart failure; I25.10 Atherosclerotic heart disease of native coronary artery without angina pectoris; E87.6 Hypokalemia; E11.9 Type 2 diabetes mellitus without complications; N40.0 Benign prostatic hyperplasia without lower urinary tract symptoms; E78.5 Hyperlipidemia, unspecified; R53.81 Other malaise; G47.00 Insomnia, unspecified; Z86.711 Personal history of pulmonary embolism; Z95.1 Presence of aortocoronary bypass graft; Z79.01 Long term (current) use of anticoagulants; Z79.4 Long term (current) use of insulin; Z79.899 Other long term (current) drug therapy
CPT/HCPCS: 36415; 76881-RT; 80048; 80053; 81001; 82947; 82962; 84484; 85025; 93005; 93970; 97161-GP; A9270-GY; J1815-GY; J1940; J3490

== ENCOUNTER 2021-07-29 13:30 | Inpatient (IN) | payer BC, MEDICARE ==
--- NOTE | 2021-07-29 14:01 | EDM.PDOC ---
ED HPI GENERAL MEDICAL PROBLEM - General Stated Complaint: SWELLING IN LEFT LEG Time Seen by Provider: 07/29/21 13:37 Source of Information: Reports: Patient, Significant Other History Limitations: Reports: No Limitations - History of Present Illness INITIAL COMMENTS - FREE TEXT/NARRATIVE: Patient presents with cellulitis in LLL that started this morning. Yesterday he had the usual warning signs of nausea and chills. He has had cellulitis in this leg several times in the past but not in the past 5 years. He is taking Bactrim qd for prophylaxis and has been working well for him. He doesn't think it has ever been called MRSA, but he says there is one certain IV antibiotic that always works best for him. Dr. Alexander and Aman Mccloud have treated him the most often for this. Left Leg Pain Score (Numeric/FACES): 2 - Related Data Allergies Allergy/AdvReac Type Severity Reaction Status Date / Time niacin Allergy Hives Verified 07/29/21 14:09 Home Meds: Home Meds metFORMIN [Glucophage] 1,000 mg PO BID 09/12/14 [History] Insulin Aspart [NovoLOG] 0 unit SUBCUT QIDACANDBED PRN 08/02/16 [History] atorvaSTATin [Lipitor] 80 mg PO DAILY 09/19/16 [History] Amitriptyline [Elavil] 25 mg PO BEDTIME 02/18/19 [History] Finasteride 5 mg PO DAILY 02/18/19 [History] Nitroglycerin 0.4 mg SL ASDIRECTED PRN 02/18/19 [History] Tamsulosin HCl 0.4 mg PO DAILY 02/18/19 [History] Acetaminophen 500 mg PO Q4H PRN 04/15/19 [History] Clindamycin Phosphate [Cleocin T 1% Lotion] 1 applic TOP BID PRN 12/23/19 [History] Vitamin B Complex 1 cap PO DAILY 12/23/19 [History] Sulfamethoxazole/Trimethoprim [Bactrim Ds Tablet] 1 tab PO DAILY 12/24/19 [History] Urea/Hydrophilic Cream [Betamide] 1 applic TOP BID PRN 12/24/19 [History] Lactobacillus 3/Fos/Pantethine [Probiotic & Acidophilus] 1 cap PO DAILY 11/08/20 [History] Losartan/Hydrochlorothiazide [Hyzaar 100-25 Tablet] 1 tab PO DAILY 11/08/20 [History] Omeprazole 20 mg PO BIDAC 11/08/20 [History] carvediloL [Carvedilol] 6.25 mg PO BID #1 11/10/20 [Rx] Potassium Chloride [Klor-Con 10] 10 meq PO DAILY #30 tab.er 11/12/20 [Rx] Clopidogrel Bisulfate [Plavix] 75 mg PO DAILY #30 tablet 11/16/20 [Rx] Empagliflozin [Jardiance] 25 mg PO QAM 07/29/21 [History] Furosemide [Lasix] 40 mg PO 1400 07/29/21 [History] Insulin Glarg,Human.Rec.Analog [Lantus Solostar] 46 units SQ BEDTIME 07/29/21 [History] Iron Polysaccharides Complex [Ferrex 150] 150 mg PO ASDIRECTED 07/29/21 [History] Nitroglycerin [Nitro-Bid 2%] 0.5 inch TOP DAILY 07/29/21 [History] Nystatin/Triamcinolone Crm [Mycolog Crm] 15 gm TOP Q2HR PRN 07/29/21 [History] Cisco-3/DHA/Epa/Fish Oil [Cisco-3 Fish Oil 1,000 MG Sfgl] 1,000 mg PO DAILY 07/29/21 [History] Rivaroxaban [Xarelto] 20 mg PO DAILY 07/29/21 [History] Semaglutide [Rybelsus] 7 mg PO DAILY 07/29/21 [History] Past Medical History - Past Health History Medical/Surgical History: Denies Medical/Surgical History HEENT History: Reports: Hard of Hearing, Impaired Vision, Other (See Below) Other HEENT History: blind in right eye Cardiovascular History: Reports: Blood Clots/VTE/DVT, Bypass, High Cholesterol, Hypertension, MS, Stents Other Cardiovascular History: CABGx3 on 08-30-16. stents placed April 2019 Respiratory History: Reports: Sleep Apnea Other Respiratory History: uses CPAP Gastrointestinal History: Reports: Chronic Diarrhea, Colon Polyp Musculoskeletal History: Reports: Arthritis, Fracture Other Musculoskeletal History: left ankle fracture, right thumb fx, arthritis in knees Neurological History: Reports: Migraines, Neuropathy, Diabetic Other Neuro History: 12-23-19: states has a headache every day since March 2019, PCP aware Endocrine/Metabolic History: Reports: Diabetes, Type II, Obesity/BMI 30+ Hematologic History: Reports: Blood Transfusion(s) Immunologic History: Reports: None Oncologic (Cancer) History: Reports: None Dermatologic History: Reports: Other (See Below) Other Dermatologic History: 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 - Past Surgical History Head Surgeries/Procedures: Reports: None HEENT Surgical History: Reports: None Cardiovascular Surgical History: Reports: Coronary Artery Bypass, Other (See [place]) Other Cardiovascular Surgeries/Procedures: CABG twice GI Surgical History: Reports: Colonoscopy, Hernia, Abdominal Endocrine Surgical History: Reports: None Neurological Surgical History: Reports: None Musculoskeletal Surgical History: Reports: None Dermatological Surgical History: Reports: None Social & Family History - Family History Family Medical History: No Pertinent Family History Cardiac: Reports: Heart Failure - Caffeine Use Caffeine Use: Reports: None Other Caffeine Use: diet soda - Living Situation & Occupation Living situation: Reports: Occupation: Employed ED ROS GENERAL - Review of Systems Review Of Systems: See Below Constitutional: Reports: Chills. Denies: Fever HEENT: Denies: Ear Pain, Throat Pain, Vision Change Respiratory: Denies: Shortness of Breath, Cough Cardiovascular: Denies: Chest Pain, Lightheadedness, Syncope Endocrine: Reports: No Symptoms GI/Abdominal: Denies: Abdominal Pain, Diarrhea, Vomiting : Denies: Dysuria Musculoskeletal: Denies: Neck Pain, Shoulder Pain, Arm Pain Skin: Reports: Erythema. Denies: Cyanosis, Jaundice, Mottled, Pallor, Diaphoresis Neurological: Denies: Confusion, Dizziness, Headache, Seizure, Syncope, Trouble Speaking, Difficulty Walking Psychiatric: Denies: Agitation, Anxiety, Confusion ED EXAM, GENERAL - Physical Exam Exam: See Below Exam Limited By: No Limitations General Appearance: Alert, WD/WN, No Apparent Distress Eye Exam: Bilateral Eye: EOMI, Normal Inspection, PERRL Ears: Normal External Exam, Hearing Grossly Normal Nose: Normal Inspection, No Blood Throat/Mouth: Normal Inspection, Normal Lips, Normal Voice, No Airway Compromise Head: Atraumatic, Normocephalic Neck: Normal Inspection, Full Range of Motion Respiratory/Chest: No Respiratory Distress, Lungs Clear, Normal Breath Sounds, No Accessory Muscle Use Cardiovascular: Regular Rate, Rhythm, Systolic Murmur GI/Abdominal: Normal Bowel Sounds, Soft, Non-Tender Back Exam: Normal Inspection, Full Range of Motion Extremities: Redness (consistent with cellulitis of LLL from ankle to just below the knee; moderate swelling also. He has chronic stasis dermatitis since a DVT/PE in 1995.) Neurological: Alert, Oriented, Normal Cognition, No Motor/Sensory Deficits Psychiatric: Normal Affect, Normal Mood Skin Exam: Warm, Dry, Intact, No Rash. No: Normal Color (see above) Course - Vital Signs Last Recorded V/S: Last Vital Signs Temp 99 F 07/29/21 13:35 Pulse 100 07/29/21 13:35 Resp 18 07/29/21 13:35 BP 154/70 H 07/29/21 13:35 Pulse Ox 96 07/29/21 13:35 - Orders/Labs/Meds Orders: Active Orders 24 hr Category Date Time Status CULTURE BLOOD [BC] Stat Lab 07/29/21 14:27 Ordered CULTURE BLOOD [BC] Stat Lab 07/29/21 14:27 Ordered Blood Culture x2 Reflex Set [OM.PC] Stat Oth 07/29/21 14:26 Ordered Labs: Laboratory Tests 07/29/21 07/29/21 07/29/21 Range/Units 14:40 14:40 14:40 WBC 9.01 (5.00-10.00) 10^3/uL RBC 4.27 L (4.50-6.00) 10^6/uL Hgb 13.6 D (13.0-17.0) g/dL Hct 40.3 (40.0-52.0) % MCV 94.4 H D (82.0-92.0) fL MCH 31.9 H (27.0-31.0) pg MCHC 33.7 (32.0-36.0) g/dL RDW 14.8 H (11.5-14.5) % Plt Count 147 L (150-400) 10^3/uL MPV 9.1 (7.4-10.4) fL Immature Gran % (Auto) 0.2 (0.0-5.0) % Neut % (Auto) 81.1 H (50.0-70.0) % Lymph % (Auto) 9.0 L (20.0-40.0) % [place] % (Auto) 7.4 (2.0-8.0) % Eos % (Auto) 1.7 (1.0-3.0) % Baso % (Auto) 0.6 (0.0-1.0) % Neut # (Auto) 7.31 H (2.50-7.00) 10^3/uL Lymph # (Auto) 0.81 L (1.00-4.00) 10^3/uL [place] # (Auto) 0.67 (0.10-0.80) 10^3/uL Eos # (Auto) 0.15 (0.10-0.30) 10^3/uL Baso # (Auto) 0.05 (0.00-0.10) 10^3/uL Immature Gran # (Auto) 0.02 (0.00-0.50) 10^3/uL Sodium 141 (136-145) mmol/L Potassium 4.2 (3.5-5.1) mmol/L Chloride 103 (98-107) mmol/L Carbon Dioxide 29.0 (21.0-32.0) mmol/L Anion Gap 13.2 (5-15) mmol/L BUN 23 H (7-18) mg/dL Creatinine 1.38 H (0.51-1.17) mg/dL Est Cr Clr Drug Dosing 57.91 mL/min Estimated GFR (MDRD) 51 mL/min Glucose 161 H (70-140) mg/dL Lactic Acid (0.4-2.0) mmol/L Calcium 9.0 (8.7-10.3) mg/dL Total Bilirubin 0.7 (0.2-1.0) mg/dL AST 17 (15-37) U/L ALT 30 (14-63) U/L Alkaline Phosphatase 90 (46-116) U/L Total Protein 7.6 (6.4-8.2) g/dL Albumin 3.74 (3.40-5.00) g/dL SARS CoV-2 RNA Rapid LUIS Negative (NEGATIVE) 07/29/21 Range/Units 14:40 WBC (5.00-10.00) 10^3/uL RBC (4.50-6.00) 10^6/uL Hgb (13.0-17.0) g/dL Hct (40.0-52.0) % MCV (82.0-92.0) fL MCH (27.0-31.0) pg MCHC (32.0-36.0) g/dL RDW (11.5-14.5) % Plt Count (150-400) 10^3/uL MPV (7.4-10.4) fL Immature Gran % (Auto) (0.0-5.0) % Neut % (Auto) (50.0-70.0) % Lymph % (Auto) (20.0-40.0) % [place] % (Auto) (2.0-8.0) % Eos % (Auto) (1.0-3.0) % Baso % (Auto) (0.0-1.0) % Neut # (Auto) (2.50-7.00) 10^3/uL Lymph # (Auto) (1.00-4.00) 10^3/uL [place] # (Auto) (0.10-0.80) 10^3/uL Eos # (Auto) (0.10-0.30) 10^3/uL Baso # (Auto) (0.00-0.10) 10^3/uL Immature Gran # (Auto) (0.00-0.50) 10^3/uL Sodium (136-145) mmol/L Potassium (3.5-5.1) mmol/L Chloride (98-107) mmol/L Carbon Dioxide (21.0-32.0) mmol/L Anion Gap (5-15) mmol/L BUN (7-18) mg/dL Creatinine (0.51-1.17) mg/dL Est Cr Clr Drug Dosing mL/min Estimated GFR (MDRD) mL/min Glucose (70-140) mg/dL Lactic Acid 0.9 (0.4-2.0) mmol/L Calcium (8.7-10.3) mg/dL Total Bilirubin (0.2-1.0) mg/dL AST (15-37) U/L ALT (14-63) U/L Alkaline Phosphatase (46-116) U/L Total Protein (6.4-8.2) g/dL Albumin (3.40-5.00) g/dL SARS CoV-2 RNA Rapid LUIS (NEGATIVE) - Re-Assessments/Exams Free Text/Narrative Re-Assessment/Exam: 07/29/21 15:18 WBC 9, ANC 7.3, lactic acid okay. Discussed findings with patient and his . In the past when he has breakthrough infection on his Bactrim he has been admitted on IV antibiotics. I feel that is the best plan for today as well. I discussed case with Aman Mccloud NP who accepted for admission. Aman will determine the antibiotic of choice. Patient stable at admission. Departure - Departure Time of Disposition: 15:17 Disposition: Admitted As Inpatient 66 Condition: Good Clinical Impression: Cellulitis of leg without foot, Diabetes - Discharge Information Sepsis Event Note (ED) - Focused Exam Vital Signs: Vital Signs Temp Pulse Resp BP Pulse Ox 07/29/21 13:35 99 F 100 18 154/70 H 96 - My Orders Last 24 Hours: My Active Orders 07/29/21 14:26 Blood Culture x2 Reflex Set [OM.PC] Stat 07/29/21 14:27 CULTURE BLOOD [BC] Stat CULTURE BLOOD [BC] Stat - Assessment/Plan Last 24 Hours: My Active Orders 07/29/21 14:26 Blood Culture x2 Reflex Set [OM.PC] Stat 07/29/21 14:27 CULTURE BLOOD [BC] Stat CULTURE BLOOD [BC] Stat
[2021-07-29 15:07] LABS: ANION GAP 13.2 mmol/L (5-15)
[2021-07-29] MEDS ORDERED: Nitroglycerin 0.4 MG Tab.SL SL PRN (16:22)
[2021-07-29] MEDS ORDERED: Glucagon,Human Recombinant 1 MG Vial IM PRN (16:22)
[2021-07-29] MEDS ORDERED: Acetaminophen 500 MG Tab PO PRN (16:22)
[2021-07-29] MEDS ORDERED: Insulin Aspart 100 Units/ML 3 ML Pen SUBCUT PRN (16:22)
[2021-07-29] MEDS ORDERED: 50% Dextrose in Water 50 ML Syringe IVPUSH PRN (16:22)
[2021-07-29] MEDS ORDERED: Ondansetron 4 MG/2 ML SDV IV PRN (16:28)
--- NOTE | 2021-07-29 17:12 | PCM.SN.2 ---
- Free Text/Narrative Note: I was notified by [facility] ED provider regarding patient with cellulitis. Went into see patient, slight chills, temperature 99.0, erythematous left lower extremity however not appeared to be deeply demarcated so likely cellulitis appropriate diagnosis. Left lower extremity warm to touch. Agreed with admission for IV antibiotics. The plan would be to start patient on ceftriaxone, LLE elevated at all times, bedrest with bathroom privileges. Blood cultures were drawn in the ED. Note. Had conversation with patient regarding admitting to [facility] as [facility] is not admitting their patients through the ED at this time. I communicated that Friday morning at 0800 the plan would be to be switched back to their primary care organization and the [facility] provider would then take over however the patient is refusing that plan. Patient and spouse indicated to me that if they will not be cared for by their primary organization ([facility]) that they will switch their care and primary care over to [facility].
[2021-07-29] MEDS: cefTRIAXone 2 GM Vial IVPUSH SCH (17:19)
[2021-07-29] MEDS: Carvedilol 6.25 MG Tab PO SCH (18:36)
[2021-07-29] MEDS: metFORMIN 500 MG Tab PO SCH (18:36)
[2021-07-29] MEDS: Insulin Glargine,Hum.Rec.Anlog 100 UNIT/ML 3 ML Pen SUBCUT SCH (21:17)
[2021-07-29] MEDS ORDERED: ceFAZolin 1 GM in Sodium Chloride 0.9% 50 ML IV SCH (22:00)
[2021-07-30] MEDS: SEMAGLUTIDE 7 MG PO SCH (06:32)
[2021-07-30] MEDS: Pantoprazole 40 MG Tab.CR PO SCH (07:10)
[2021-07-30 08:08] LABS: ANION GAP 14.1 mmol/L (5-15)
[2021-07-30] MEDS: Carvedilol 6.25 MG Tab PO SCH ×2 (08:11→17:48)
[2021-07-30] MEDS: metFORMIN 500 MG Tab PO SCH ×2 (08:11→17:48)
[2021-07-30] MEDS ORDERED: Nitroglycerin 2% Oint 1 GM UD Packet TOP PRN (09:00)
[2021-07-30] MEDS: EMPAGLIFLOZIN 25 MG PO SCH (09:14)
[2021-07-30] MEDS: Rivaroxaban 10 MG Tab PO SCH (09:15)
[2021-07-30] MEDS: Amitriptyline 25 MG Tab PO SCH (09:15)
[2021-07-30] MEDS: Tamsulosin 0.4 MG Cap.ER PO SCH (09:15)
[2021-07-30] MEDS: Potassium Chloride 10 MEQ Tab.ER PO SCH (09:15)
[2021-07-30] MEDS: Losartan 50 MG Tab PO SCH (09:16)
[2021-07-30] MEDS: Finasteride 5 MG Tab PO SCH (09:16)
[2021-07-30] MEDS: atorvaSTATin 40 MG Tab PO SCH (09:16)
[2021-07-30] MEDS: Hydrochlorothiazide 25 MG Tab PO SCH (09:16)
[2021-07-30] MEDS: Clopidogrel 75 MG Tab PO SCH (09:16)
[2021-07-30] MEDS: Furosemide 40 MG Tab PO SCH (09:16)
--- NOTE | 2021-07-30 15:55 | PCM.PN ---
- General Info Date of Service: 07/30/21 (1200) Functional Status: Reports: Pain Controlled, Tolerating Diet, Urinating, New Symptoms (drainage from left great toe. ). Denies: Ambulating - Review of Systems General: Reports: No Symptoms HEENT: Reports: No Symptoms Pulmonary: Reports: No Symptoms Cardiovascular: Reports: No Symptoms Gastrointestinal: Reports: No Symptoms Genitourinary: Reports: No Symptoms Musculoskeletal: Reports: Other (chronic left knee pain. ) Skin: Reports: Rash Neurological: Reports: No Symptoms Psychiatric: Reports: No Symptoms - Patient Data Vitals - Most Recent: Last Vital Signs Temp 98.4 F 07/30/21 15:00 Pulse 80 07/30/21 15:00 Resp 18 07/30/21 15:00 BP 116/58 L 07/30/21 15:00 Pulse Ox 92 L 07/30/21 15:00 Weight - Most Recent: 280 lb 14.4 oz I&O - Last 24 Hours: Intake & Output 07/30/21 07/30/21 07/30/21 06:59 14:59 22:59 Intake Total 100 300 Balance 100 300 Lab Results Last 24 Hours: Laboratory Results - last 24 hr 07/29/21 07/30/21 07/30/21 Range/Units 18:07 07:00 07:00 WBC 5.66 (5.00-10.00) 10^3/uL RBC 3.84 L (4.50-6.00) 10^6/uL Hgb 12.1 L D (13.0-17.0) g/dL Hct 35.8 L (40.0-52.0) % MCV 93.2 H (82.0-92.0) fL MCH 31.5 H (27.0-31.0) pg MCHC 33.8 (32.0-36.0) g/dL RDW 14.5 (11.5-14.5) % Plt Count 129 L (150-400) 10^3/uL MPV 8.9 (7.4-10.4) fL Immature Gran % (Auto) 0.0 (0.0-5.0) % Neut % (Auto) 61.0 (50.0-70.0) % Lymph % (Auto) 24.4 (20.0-40.0) % [place] % (Auto) 11.7 H (2.0-8.0) % Eos % (Auto) 2.5 (1.0-3.0) % Baso % (Auto) 0.4 (0.0-1.0) % Neut # (Auto) 3.46 (2.50-7.00) 10^3/uL Lymph # (Auto) 1.38 (1.00-4.00) 10^3/uL [place] # (Auto) 0.66 (0.10-0.80) 10^3/uL Eos # (Auto) 0.14 (0.10-0.30) 10^3/uL Baso # (Auto) 0.02 (0.00-0.10) 10^3/uL Immature Gran # (Auto) 0.00 (0.00-0.50) 10^3/uL Sodium 141 (136-145) mmol/L Potassium 3.8 (3.5-5.1) mmol/L Chloride 103 (98-107) mmol/L Carbon Dioxide 27.7 (21.0-32.0) mmol/L Anion Gap 14.1 (5-15) mmol/L BUN 20 H (7-18) mg/dL Creatinine 1.26 H (0.51-1.17) mg/dL Est Cr Clr Drug Dosing 63.43 mL/min Estimated GFR (MDRD) 57 mL/min Glucose 111 (70-140) mg/dL POC Glucose 110 (70-140) mg/dL Calcium 8.3 L (8.7-10.3) mg/dL Med Orders - Current: Current Medications Acetaminophen (Acetaminophen 500 Mg Tab) 500 mg PO Q4H PRN PRN Reason: Pain/Fever Amitriptyline HCl (Amitriptyline 25 Mg Tab) 25 mg PO QAM [facility] Last Admin: 07/30/21 09:15 Dose: 25 mg Documented by: Atorvastatin Calcium (Atorvastatin 40 Mg Tab) 80 mg PO DAILY [facility] Last Admin: 07/30/21 09:16 Dose: 80 mg Documented by: Carvedilol (Carvedilol 6.25 Mg Tab) 6.25 mg PO BIDMEALS [facility] Last Admin: 07/30/21 08:11 Dose: 6.25 mg Documented by: Ceftriaxone Sodium (Ceftriaxone 2 Gm Vial) 2 gm IVPUSH Q24H [facility] Last Admin: 07/29/21 17:19 Dose: 2 gm Documented by: Clopidogrel Bisulfate (Clopidogrel 75 Mg Tab) 75 mg PO DAILY [facility] Last Admin: 07/30/21 09:16 Dose: 75 mg Documented by: Dextrose/Water (50% Dextrose In Water 50 Ml Syringe) 50 ml IVPUSH ASDIRECTED PRN PRN Reason: Hypoglycemia Finasteride (Finasteride 5 Mg Tab) 5 mg PO DAILY [facility] Last Admin: 07/30/21 09:16 Dose: 5 mg Documented by: Furosemide (Furosemide 40 Mg Tab) 40 mg PO QAM [facility] Last Admin: 07/30/21 09:16 Dose: 40 mg Documented by: Glucagon (Glucagon,Human Recombinant 1 Mg Vial) 1 mg IM ASDIRECTED PRN PRN Reason: Hypoglycemia Hydrochlorothiazide (Hydrochlorothiazide 25 Mg Tab) 25 mg PO DAILY [facility] Last Admin: 07/30/21 09:16 Dose: 25 mg Documented by: Insulin Aspart (Insulin Aspart 100 Units/Ml 3 Ml Pen) 0 unit SUBCUT QIDACANDBED PRN; Protocol PRN Reason: Elevated blood sugar Insulin Glargine (Insulin Glargine,Hum.Rec.Anlog 100 Unit/Ml 3 Ml Pen) 40 unit SUBCUT BEDTIME [facility] Last Admin: 07/29/21 21:17 Dose: 40 units Documented by: Losartan Potassium (Losartan 50 Mg Tab) 100 mg PO DAILY [facility] Last Admin: 07/30/21 09:16 Dose: 100 mg Documented by: Metformin HCl (Metformin 500 Mg Tab) 500 mg PO BIDMEALS [facility] Last Admin: 07/30/21 08:11 Dose: 500 mg Documented by: Nitroglycerin (Nitroglycerin 2% Oint 1 Gm Ud Packet) 0 gm TOP DAILY PRN PRN Reason: Chest Pain Nitroglycerin (Nitroglycerin 0.4 Mg Tab.Sl) 0.4 mg SL ASDIRECTED PRN PRN Reason: Chest Pain Empagliflozin ( Jardiance) 25 Mg Tablet Own Med 0 mg PO QAM [facility] Last Admin: 07/30/21 09:14 Dose: 25 mg Documented by: Non-Formulary Medication (Lactobacillus 3/Fos/Pantethine [Probiotic & Acidophilus]) 1 cap PO DAILY [facility] Semaglutide ( Rybelsus) 7 Mg Tablet Own Med 0 mg PO DAILY@0630 [facility] Last Admin: 07/30/21 06:32 Dose: 7 mg Documented by: Ondansetron HCl (Ondansetron 4 Mg/2 Ml Sdv) 4 mg IV Q4H PRN PRN Reason: Nausea/Vomiting Pantoprazole Sodium (Pantoprazole 40 Mg Tab.Cr) 40 mg PO DAILY@0700 [facility] Last Admin: 07/30/21 07:10 Dose: 40 mg Documented by: Potassium Chloride (Potassium Chloride 10 Meq Tab.Er) 10 meq PO DAILY [facility] Last Admin: 07/30/21 09:15 Dose: 10 meq Documented by: Rivaroxaban (Rivaroxaban 10 Mg Tab) 20 mg PO DAILY [facility] Last Admin: 07/30/21 09:15 Dose: 20 mg Documented by: Tamsulosin HCl (Tamsulosin 0.4 Mg Cap.Er) 0.4 mg PO DAILY [facility] Last Admin: 07/30/21 09:15 Dose: 0.4 mg Documented by: Discontinued Medications Cefazolin Sodium 1 gm/ Sodium (Chloride) 50 mls @ 200 mls/hr IV Q8HR [facility] - Exam Quality Assessment: DVT Prophylaxis (cross covered with factor Xa inhibitor). No: Supplemental Oxygen General: Alert, Oriented Neck: Supple Lungs: Clear to Auscultation, Normal Respiratory Effort Cardiovascular: Regular Rhythm. No: Bradycardia, Tachycardia GI/Abdominal Exam: Normal Bowel Sounds, Soft Skin: Rash, Other (LLE: See details in clinical course. ) Wound/Incisions: Drainage, Erythema (LL great toe) Psy/Mental Status: Alert, Normal Affect, Normal Mood - Patient Data Lab Results Last 24 hrs: Laboratory Results - last 24 hr 07/29/21 07/30/21 07/30/21 Range/Units 18:07 07:00 07:00 WBC 5.66 (5.00-10.00) 10^3/uL RBC 3.84 L (4.50-6.00) 10^6/uL Hgb 12.1 L D (13.0-17.0) g/dL Hct 35.8 L (40.0-52.0) % MCV 93.2 H (82.0-92.0) fL MCH 31.5 H (27.0-31.0) pg MCHC 33.8 (32.0-36.0) g/dL RDW 14.5 (11.5-14.5) % Plt Count 129 L (150-400) 10^3/uL MPV 8.9 (7.4-10.4) fL Immature Gran % (Auto) 0.0 (0.0-5.0) % Neut % (Auto) 61.0 (50.0-70.0) % Lymph % (Auto) 24.4 (20.0-40.0) % [place] % (Auto) 11.7 H (2.0-8.0) % Eos % (Auto) 2.5 (1.0-3.0) % Baso % (Auto) 0.4 (0.0-1.0) % Neut # (Auto) 3.46 (2.50-7.00) 10^3/uL Lymph # (Auto) 1.38 (1.00-4.00) 10^3/uL [place] # (Auto) 0.66 (0.10-0.80) 10^3/uL Eos # (Auto) 0.14 (0.10-0.30) 10^3/uL Baso # (Auto) 0.02 (0.00-0.10) 10^3/uL Immature Gran # (Auto) 0.00 (0.00-0.50) 10^3/uL Sodium 141 (136-145) mmol/L Potassium 3.8 (3.5-5.1) mmol/L Chloride 103 (98-107) mmol/L Carbon Dioxide 27.7 (21.0-32.0) mmol/L Anion Gap 14.1 (5-15) mmol/L BUN 20 H (7-18) mg/dL Creatinine 1.26 H (0.51-1.17) mg/dL Est Cr Clr Drug Dosing 63.43 mL/min Estimated GFR (MDRD) 57 mL/min Glucose 111 (70-140) mg/dL POC Glucose 110 (70-140) mg/dL Calcium 8.3 L (8.7-10.3) mg/dL Result Diagrams: 07/30/21 07:00 07/30/21 07:00 Sepsis Event Note - Evaluation Sepsis Screening Result: No Definite Risk - Focused Exam Vital Signs: Vital Signs Temp Pulse Pulse Resp BP BP Pulse Ox 07/30/21 15:00 98.4 F 80 18 116/58 L 92 L 07/30/21 09:16 149/68 H 07/30/21 08:11 83 149/68 H 07/30/21 06:35 98.1 F 82 20 142/62 H 91 L - Problem List Review Problem List Initiated/Reviewed/Updated: Yes - My Orders Last 24 Hours: My Active Orders 07/29/21 16:22 Acetaminophen [Tylenol Extra Strength] 500 mg PO Q4H PRN Dextrose 50% in Water 50 ml IVPUSH ASDIRECTED PRN Glucagon,Human Recombinant [GlucaGen] 1 mg IM ASDIRECTED PRN Insulin Aspart [NovoLOG] See Protocol SUBCUT QIDACANDBED PRN Nitroglycerin [Nitrostat] 0.4 mg SL ASDIRECTED PRN 07/29/21 16:28 Bedrest Bathroom Privileges [RC] ASDIRECTED Blood Glucose Check, Bedside [RC] TIDMEALS Height and Weight [RC] .PRN VTE/DVT Education [RC] PER UNIT ROUTINE Vital Signs [RC] 0700,1500,2300 Ondansetron [Zofran] 4 mg IV Q4H PRN 07/29/21 16:42 Communication Order [RC] DAILY 07/29/21 16:45 Elevate Extremity [RC] BID 07/29/21 17:00 cefTRIAXone [Rocephin] 2 gm IVPUSH Q24H 07/29/21 Dinner 2 Gram Sodium Diet [DIET] [place] [employer] Diet [DIET] carvediloL [Coreg] 6.25 mg PO BIDMEALS metFORMIN [Glucophage] 500 mg PO BIDMEALS 07/29/21 21:00 Insulin Glargine,Hum.Rec.Anlog [Semglee Pen] 40 unit SUBCUT BEDTIME 07/30/21 06:30 Semaglutide [Rybelsus] 0 mg PO DAILY@0630 07/30/21 07:00 Pantoprazole [ProTONIX] 40 mg PO DAILY@0700 07/30/21 09:00 Amitriptyline [Elavil] 25 mg PO QAM Clopidogrel [Plavix] 75 mg PO DAILY Empagliflozin [Jardiance] 0 mg PO QAM Finasteride [Proscar] 5 mg PO DAILY Furosemide [Lasix] 40 mg PO QAM Lactobacillus 3/Fos/Pantethine [Probiotic & Acidophilus] 1 cap PO DAILY Losartan [Cozaar] 100 mg PO DAILY Nitroglycerin [Nitro-Bid 2%] 0 gm TOP DAILY PRN Potassium Chloride [Klor-Con 10] 10 meq PO DAILY Rivaroxaban [Xarelto] 20 mg PO DAILY Tamsulosin [Flomax] 0.4 mg PO DAILY atorvaSTATin [Lipitor] 80 mg PO DAILY hydroCHLOROthiazide 25 mg PO DAILY 07/30/21 12:45 CULTURE WOUND + SMEAR [RM] Routine - Plan Plan:: History summary Mr Francisco is a 70 y/o male well known to me was admitted throught the ED due to a spreading cellulitis LLE. He stated he first noticed pain to his left ankle medially yesterday am with his usual prodromal sx of nausea, chills with low grade temp as he does have a hx of cellulites ~5 years ago. He had been on p rophylaxis Bactrim every other day and seemed to been working well. No history of MRSA. Patient has been followed by Dr. Álvarez chili powder mixer Morgan Garcia for ongoing diabetic foot ulcerations to his left great toe and was due to follow-up last month however patient was lost to f/u. Hospital course: 07/30; patient alert, no distress, feels good, sitting in bed with LLE elevated, area of redness slightly receding from previously drawn surgical skin marker, less warmth, however left great toe with bloody/purulent odor DC on palpation, culture taken. Primary Hosp problems --Cellulitis LLE --Diabetic Ulcer Left great toe infection, full-thickness, distal end of his hallux with hyperkeratotic margins, purulent drainage. Chronic, stable conditions: --CAD s/p CABG: Denies angina. Continue carvedilol 6.25mg BID, nitroglycerin prn. --Hx DVT/PE --S/p IVF filter, 1995 --HFpEF, Chronic, EF 10/2020 EF 55% and grade II diastolic dysfunction --HTN: Controlled. Continue losartan 100mg-HCTZ 25mg daily. --Aortic stenosis: 10/2020 echo with mean gradient 14mmHg. --BPH: Stable. Continue tamsulosin 0.4mg daily, finasteride 5mg daily. --White's esophagus without dysplasia, Iron, PPI (reschedule WED pending rountine scope [facility]) --DMT2: BGs controlled. Recent A1c 7.7% Up from 7.1 previous Continue metformin 1000mg BID, liraglutide 1.8mg qd, Lantus 30un daily, and NovoLog MED dose SS. --HLD: Continue atorvastatin 80mg daily. --Insomnia: Stable. Continue amitriptyline prn. Hospitalization details: FEN: No IVF. Electrolytes normal. Heart healthy diet. PPX: On rivaroxaban for DVT Code status: FULL. Emergency contact: , Elaina, not with patient on rounds today Disposition overall plan --Patient meets ongoing INPT admission criteria for IV antibiotics, close monitoring for infection sequela --Cont IV Abx --LLE elevation --minimize wt bearing --Wound cx today --Xray in am --Will need off loading footwear
[2021-07-30] MEDS: cefTRIAXone 2 GM Vial IVPUSH SCH (17:48)
[2021-07-30] MEDS: Insulin Glargine,Hum.Rec.Anlog 100 UNIT/ML 3 ML Pen SUBCUT SCH (20:55)
[2021-07-31] MEDS: SEMAGLUTIDE 7 MG PO SCH (06:23)
[2021-07-31] MEDS: Pantoprazole 40 MG Tab.CR PO SCH (07:06)
[2021-07-31] MEDS: Carvedilol 6.25 MG Tab PO SCH ×2 (07:46→18:31)
[2021-07-31] MEDS: metFORMIN 500 MG Tab PO SCH ×2 (07:46→18:31)
--- NOTE | 2021-07-31 08:58 | CR ---
[id number] RAD/RAD Foot Left 2V Exam: RAD Foot Left 2V Indication:LEFT OSTEOMYELITIS LEFT GREAT TOE. Comparison: No prior imaging for comparison. Discussion/Impression: Abnormal appearance of soft tissues at the tip of the first digit. Findings include soft tissue swelling and subcutaneous emphysema. Correlate for ulceration and cellulitis. Abnormal appearance of the distal phalanx terminal tuft suggesting osteolysis. Findings would be consistent with acute osteomyelitis. Multiple chronic findings including atherosclerosis, osteoarthritis, and enthesopathy scattered throughout the foot. No evidence of an acute fracture. Otilio Nathan MD 07/31/21 0857 Thank you for allowing us to participate in the care of your patient.
[2021-07-31] MEDS: EMPAGLIFLOZIN 25 MG PO SCH (09:20)
[2021-07-31] MEDS: Rivaroxaban 10 MG Tab PO SCH (09:21)
[2021-07-31] MEDS: Amitriptyline 25 MG Tab PO SCH (09:21)
[2021-07-31] MEDS: Hydrochlorothiazide 25 MG Tab PO SCH (09:21)
[2021-07-31] MEDS: Clopidogrel 75 MG Tab PO SCH (09:21)
[2021-07-31] MEDS: atorvaSTATin 40 MG Tab PO SCH (09:21)
[2021-07-31] MEDS: Losartan 50 MG Tab PO SCH (09:21)
[2021-07-31] MEDS: Finasteride 5 MG Tab PO SCH (09:21)
[2021-07-31] MEDS: Potassium Chloride 10 MEQ Tab.ER PO SCH (09:21)
[2021-07-31] MEDS: Tamsulosin 0.4 MG Cap.ER PO SCH (09:21)
[2021-07-31] MEDS: Furosemide 40 MG Tab PO SCH (09:21)
--- NOTE | 2021-07-31 09:30 | PCM.PN ---
- General Info Date of Service: 07/31/21 Functional Status: Reports: Pain Controlled - Review of Systems General: Denies: Fever, Weakness HEENT: Reports: No Symptoms Pulmonary: Reports: No Symptoms Cardiovascular: Reports: No Symptoms Gastrointestinal: Reports: No Symptoms Genitourinary: Reports: No Symptoms Musculoskeletal: Reports: Other (chronic Left knee pain) Skin: Reports: Rash Neurological: Reports: No Symptoms Psychiatric: Reports: No Symptoms - Patient Data Vitals - Most Recent: Last Vital Signs Temp 97.5 F 07/31/21 06:29 Pulse 74 07/31/21 07:46 Resp 18 07/31/21 06:29 BP 146/71 H 07/31/21 09:21 Pulse Ox 92 L 07/31/21 06:29 Weight - Most Recent: 280 lb 14.4 oz I&O - Last 24 Hours: Intake & Output 07/30/21 07/31/21 07/31/21 22:59 06:59 14:59 Intake Total 600 100 Balance 600 100 Med Orders - Current: Current Medications Acetaminophen (Acetaminophen 500 Mg Tab) 500 mg PO Q4H PRN PRN Reason: Pain/Fever Amitriptyline HCl (Amitriptyline 25 Mg Tab) 25 mg PO QAM [facility] Last Admin: 07/31/21 09:21 Dose: 25 mg Documented by: Atorvastatin Calcium (Atorvastatin 40 Mg Tab) 80 mg PO DAILY [facility] Last Admin: 07/31/21 09:21 Dose: 80 mg Documented by: Carvedilol (Carvedilol 6.25 Mg Tab) 6.25 mg PO BIDMEALS [facility] Last Admin: 07/31/21 07:46 Dose: 6.25 mg Documented by: Ceftriaxone Sodium (Ceftriaxone 2 Gm Vial) 2 gm IVPUSH Q24H [facility] Last Admin: 07/30/21 17:48 Dose: 2 gm Documented by: Clopidogrel Bisulfate (Clopidogrel 75 Mg Tab) 75 mg PO DAILY [facility] Last Admin: 07/31/21 09:21 Dose: 75 mg Documented by: Dextrose/Water (50% Dextrose In Water 50 Ml Syringe) 50 ml IVPUSH ASDIRECTED PRN PRN Reason: Hypoglycemia Finasteride (Finasteride 5 Mg Tab) 5 mg PO DAILY [facility] Last Admin: 07/31/21 09:21 Dose: 5 mg Documented by: Furosemide (Furosemide 40 Mg Tab) 40 mg PO QAM [facility] Last Admin: 07/31/21 09:21 Dose: 40 mg Documented by: Glucagon (Glucagon,Human Recombinant 1 Mg Vial) 1 mg IM ASDIRECTED PRN PRN Reason: Hypoglycemia Hydrochlorothiazide (Hydrochlorothiazide 25 Mg Tab) 25 mg PO DAILY [facility] Last Admin: 07/31/21 09:21 Dose: 25 mg Documented by: Insulin Aspart (Insulin Aspart 100 Units/Ml 3 Ml Pen) 0 unit SUBCUT QIDACANDBED PRN; Protocol PRN Reason: Elevated blood sugar Last Admin: 07/30/21 17:44 Dose: 2 units Documented by: Insulin Glargine (Insulin Glargine,Hum.Rec.Anlog 100 Unit/Ml 3 Ml Pen) 40 unit SUBCUT BEDTIME [facility] Last Admin: 07/30/21 20:55 Dose: 40 units Documented by: Losartan Potassium (Losartan 50 Mg Tab) 100 mg PO DAILY [facility] Last Admin: 07/31/21 09:21 Dose: 100 mg Documented by: Metformin HCl (Metformin 500 Mg Tab) 500 mg PO BIDMEALS [facility] Last Admin: 07/31/21 07:46 Dose: 500 mg Documented by: Nitroglycerin (Nitroglycerin 2% Oint 1 Gm Ud Packet) 0 gm TOP DAILY PRN PRN Reason: Chest Pain Nitroglycerin (Nitroglycerin 0.4 Mg Tab.Sl) 0.4 mg SL ASDIRECTED PRN PRN Reason: Chest Pain Empagliflozin ( Jardiance) 25 Mg Tablet Own Med 0 mg PO QAM [facility] Last Admin: 07/31/21 09:20 Dose: 25 mg Documented by: Non-Formulary Medication (Lactobacillus 3/Fos/Pantethine [Probiotic & Acidophilus]) 1 cap PO DAILY [facility] Semaglutide ( Rybelsus) 7 Mg Tablet Own Med 0 mg PO DAILY@0630 [facility] Last Admin: 07/31/21 06:23 Dose: 7 mg Documented by: Ondansetron HCl (Ondansetron 4 Mg/2 Ml Sdv) 4 mg IV Q4H PRN PRN Reason: Nausea/Vomiting Pantoprazole Sodium (Pantoprazole 40 Mg Tab.Cr) 40 mg PO DAILY@0700 [facility] Last Admin: 07/31/21 07:06 Dose: 40 mg Documented by: Potassium Chloride (Potassium Chloride 10 Meq Tab.Er) 10 meq PO DAILY [facility] Last Admin: 07/31/21 09:21 Dose: 10 meq Documented by: Rivaroxaban (Rivaroxaban 10 Mg Tab) 20 mg PO DAILY [facility] Last Admin: 07/31/21 09:21 Dose: 20 mg Documented by: Tamsulosin HCl (Tamsulosin 0.4 Mg Cap.Er) 0.4 mg PO DAILY [facility] Last Admin: 07/31/21 09:21 Dose: 0.4 mg Documented by: Discontinued Medications Cefazolin Sodium 1 gm/ Sodium (Chloride) 50 mls @ 200 mls/hr IV Q8HR [facility] - Exam Quality Assessment: DVT Prophylaxis (cross covered). No: Supplemental Oxygen General: Alert, Oriented Neck: Supple Cardiovascular: Regular Rate, Regular Rhythm, Murmurs Extremities: No Pedal Edema Skin: Other (rash LLE, slightly receding from margins. L great toe, no DC today however fluctuance ) - Patient Data Result Diagrams: 07/30/21 07:00 07/30/21 07:00 Sepsis Event Note - Evaluation Sepsis Screening Result: No Definite Risk - Focused Exam Vital Signs: Vital Signs Temp Pulse Pulse Resp BP BP Pulse Ox 07/31/21 09:21 146/71 H 07/31/21 07:46 74 146/71 H 07/31/21 06:29 97.5 F 77 18 151/75 H 92 L 07/30/21 22:50 98.2 F 76 20 142/59 H 94 L - Problem List Review Problem List Initiated/Reviewed/Updated: Yes - My Orders Last 24 Hours: My Active Orders 07/30/21 09:00 Amitriptyline [Elavil] 25 mg PO QAM Clopidogrel [Plavix] 75 mg PO DAILY Empagliflozin [Jardiance] 0 mg PO QAM Finasteride [Proscar] 5 mg PO DAILY Furosemide [Lasix] 40 mg PO QAM Lactobacillus 3/Fos/Pantethine [Probiotic & Acidophilus] 1 cap PO DAILY Losartan [Cozaar] 100 mg PO DAILY Nitroglycerin [Nitro-Bid 2%] 0 gm TOP DAILY PRN Potassium Chloride [Klor-Con 10] 10 meq PO DAILY Rivaroxaban [Xarelto] 20 mg PO DAILY Tamsulosin [Flomax] 0.4 mg PO DAILY atorvaSTATin [Lipitor] 80 mg PO DAILY hydroCHLOROthiazide 25 mg PO DAILY - Plan Plan:: History summary Mr Francisco is a 70 y/o male well known to me was admitted throught the ED due to a spreading cellulitis LLE. He stated he first noticed pain to his left ankle medially yesterday am with his usual prodromal sx of nausea, chills with low grade temp as he does have a hx of cellulites ~5 years ago. He had been on prophylaxis Bactrim every other day and seemed to been working well. No history of MRSA. Patient has been followed by Dr. Álvarez meteorology faculty member Morgan Garcia for ongoing diabetic foot ulcerations to his left great toe and was due to follow-up last month however patient was lost to f/u. Hospital course: 07/30; patient alert, no distress, feels good, sitting in bed with LLE elevated, area of redness slightly receding from previously drawn surgical skin marker, less warmth, however left great toe with bloody/purulent odor DC on palpation, culture taken. 07/31; rash LLE, slightly receding from margins. L great toe, no DC today however fluctuance with some odor, concerning for osteomylitis/gas gangrene. X- ray today. 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 Will need Chronic, stable conditions: --CAD s/p CABG: Denies angina. Continue carvedilol 6.25mg BID, nitroglycerin prn. --Hx DVT/PE --S/p IVF filter, 1995 --HFpEF, Chronic, EF 10/2020 EF 55% and grade II diastolic dysfunction --HTN: Controlled. Continue losartan 100mg-HCTZ 25mg daily. --Aortic stenosis: 10/2020 echo with mean gradient 14mmHg. --BPH: Stable. Continue tamsulosin 0.4mg daily, finasteride 5mg daily. --White's esophagus without dysplasia, Iron, PPI (reschedule WED pending rountine scope GI [place]) --DMT2: BGs controlled. Recent A1c 7.7% Up from 7.1 previous Continue metformin 1000mg BID, liraglutide 1.8mg qd, Lantus 30un daily, and NovoLog MED dose SS. --HLD: Continue atorvastatin 80mg daily. --Insomnia: Stable. Continue amitriptyline prn. Hospitalization details: FEN: No IVF. Electrolytes normal. Heart healthy diet. PPX: On rivaroxaban for DVT Code status: FULL. Emergency contact: , Elaina, not with patient on rounds today Disposition overall plan --Patient meets ongoing INPT admission criteria for IV antibiotics, --Cont IV Abx --LLE elevation --[facility]Dr Hendricks office notified and will need appt soon.
[2021-07-31] MEDS: cefTRIAXone 2 GM Vial IVPUSH SCH (17:30)
[2021-07-31] MEDS: Insulin Glargine,Hum.Rec.Anlog 100 UNIT/ML 3 ML Pen SUBCUT SCH (20:45)
[2021-07-31] MEDS ORDERED: Sodium Chloride 0.9% 50 ML IV SCH (22:45)
[2021-07-31] MEDS: Ciprofloxacin in D5W 400 MG in Premix Bag 1 BAG IV SCH ×2 (22:45)
[2021-08-01] MEDS: SEMAGLUTIDE 7 MG PO SCH (05:54)
[2021-08-01] MEDS: Pantoprazole 40 MG Tab.CR PO SCH (06:07)
[2021-08-01 07:59] LABS: ANION GAP 15.1 mmol/L (5-15)
[2021-08-01] MEDS: Carvedilol 6.25 MG Tab PO SCH (08:00)
[2021-08-01] MEDS: Losartan 50 MG Tab PO SCH (08:00)
[2021-08-01] MEDS: Rivaroxaban 10 MG Tab PO SCH (08:00)
[2021-08-01] MEDS: metFORMIN 500 MG Tab PO SCH (08:00)
[2021-08-01] MEDS: Potassium Chloride 10 MEQ Tab.ER PO SCH (08:00)
[2021-08-01 08:01] VITALS: BP 155/71; PULSE 75
[2021-08-01] MEDS: Furosemide 40 MG Tab PO SCH (08:01)
[2021-08-01] MEDS: Finasteride 5 MG Tab PO SCH (08:01)
[2021-08-01] MEDS: atorvaSTATin 40 MG Tab PO SCH (08:01)
[2021-08-01] MEDS: EMPAGLIFLOZIN 25 MG PO SCH (08:01)
[2021-08-01] MEDS: Tamsulosin 0.4 MG Cap.ER PO SCH (08:01)
[2021-08-01] MEDS: Clopidogrel 75 MG Tab PO SCH (08:01)
[2021-08-01] MEDS: Hydrochlorothiazide 25 MG Tab PO SCH (08:01)
[2021-08-01] MEDS: Amitriptyline 25 MG Tab PO SCH (08:01)
[2021-08-01] MEDS: Ciprofloxacin in D5W 400 MG in Premix Bag 1 BAG IV SCH ×2 (09:07)
--- NOTE | 2021-08-01 09:15 | PCM.DCSUM1 ---
Discharge Summary - Hospital Course Free Text/Narrative:: Admission Date: 07/29/2021 Discharge Date: 08/01/2021 Disposition: Home, Self care with follow-up podiatry appointment on 08/02 at [facility] Admission Diagnoses: Cellulitis of LLE secondary to infected diabetic ulcer of the LEFT great toe. - X-ray of the foot shows osteomyelitis with likely gangrenous tissue infection - Received Ceftriaxone 2 grams q 24 hours x 3 days with one dose of ciprofloxacin 400 mg IV on 07/31 - Discharge to home on ciprofloxacin 500 mg PO BID x 10 days - Rest of plan per podiatry, may require amputation and possible PICC like with outpatient IV antibiotics - Wound culture pending - Cellulitis improving, receding from marked edges Secondary Diagnoses: CAD s/p CABG - Plavix 75 mg PO daily Hx DVT/PE s/p IVC filter in 1995 - Xarelto 20 mg PO dailay HFpEF - Furosemide 40 mg PO daily - Klor-Con 10 mg PO daily Aortic stenosis BPH - Finasteride 5 mg PO daily - Tamsulosin 0.4 mg PO daily White's Esophagus - Pantoprazole 40 mg PO daily DM2 - Insulin glargine 40 units subcut daily - Metformin 500 mg PO BID - Rybelsus 7 mg PO daily - Jardiance 25 mg PO daily HDL - Atorvastatin 80 mg PO daily Insomnia - Amitriptyline 25 mg PO daily HTN - Carvedilol 3.25 mg PO BID - HCTZ 25 mg PO daily - Losartan 100 mg PO daily New Meds at discharge: Ciprofloxacin 500 mg PO BID x 10 days Code Status: Full Code History summary Mr Francisco is a 70 y/o male well known to me was admitted throught the ED due to a spreading cellulitis LLE. He stated he first noticed pain to his left ankle medially yesterday am with his usual prodromal sx of nausea, chills with low grade temp as he does have a hx of cellulites ~5 years ago. He had been on prophylaxis Bactrim every other day and seemed to been working well. No history of MRSA. Patient has been followed by [facility]. Álvarez principal automation engineer [facility] for ongoing diabetic foot ulcerations to his left great toe and was due to follow-up last month however patient was lost to f/u. Hospital course: 07/30; patient alert, no distress, feels good, sitting in bed with LLE elevated, area of redness slightly receding from previously drawn surgical skin marker, less warmth, however left great toe with bloody/purulent odor DC on palpation, culture taken. 07/31; rash LLE, slightly receding from margins. L great toe, no DC today however fluctuance with some odor, concerning for osteomylitis/gas gangrene. 08/01: Ready to discharge to home Diagnosis: Stroke: No Modified Millard Scale: No Signif.Disability Despite Sympt.Able to Carry Out Usual Act./Duties Modified Millard Scale Score: 1 - Discharge Data Discharge Date: 08/01/21 Discharge Disposition: Home, Self-Care 01 Condition: Good - Referral to Home Health Primary Care Physician: Ember John MD - Patient Instructions Diet: Usual Diet as Tolerated - Discharge Plan *PRESCRIPTION DRUG MONITORING PROGRAM REVIEWED*: Not Applicable *COPY OF PRESCRIPTION DRUG MONITORING REPORT IN PATIENT ISABEL: Not Applicable Prescriptions/Med Rec: Ciprofloxacin [Ciprofloxacin HCl] 500 mg PO BID #20 tab Home Medications: Home Meds metFORMIN [Glucophage] 500 mg PO BID 09/12/14 [History] Insulin Aspart [NovoLOG] 0 unit SUBCUT QIDACANDBED PRN 08/02/16 [History] atorvaSTATin [Lipitor] 80 mg PO QAM 09/19/16 [History] Amitriptyline [Elavil] 25 mg PO QAM 02/18/19 [History] Finasteride 5 mg PO QAM 02/18/19 [History] Nitroglycerin 0.4 mg SL ASDIRECTED PRN 02/18/19 [History] Tamsulosin HCl 0.4 mg PO QAM 02/18/19 [History] Acetaminophen 500 mg PO Q4H PRN 04/15/19 [History] Clindamycin Phosphate [Cleocin T 1% Lotion] 1 applic TOP BID PRN 12/23/19 [History] Vitamin B Complex 1 cap PO QPM 12/23/19 [History] Sulfamethoxazole/Trimethoprim [Bactrim Ds Tablet] 1 tab PO QAM 12/24/19 [History] Urea/Hydrophilic Cream [Betamide] 1 applic TOP BID PRN 12/24/19 [History] Lactobacillus 3/Fos/Pantethine [Probiotic & Acidophilus] 1 cap PO QPM 11/08/20 [History] Losartan/Hydrochlorothiazide [Hyzaar 100-25 Tablet] 1 tab PO QAM 11/08/20 [History] Omeprazole 40 mg PO 0700 11/08/20 [History] carvediloL [Carvedilol] 6.25 mg PO BID #1 11/10/20 [Rx] Potassium Chloride [Klor-Con 10] 10 meq PO DAILY #30 tab.er 11/12/20 [Rx] Clopidogrel Bisulfate [Plavix] 75 mg PO DAILY #30 tablet 11/16/20 [Rx] Empagliflozin [Jardiance] 25 mg PO QAM 07/29/21 [History] Furosemide [Lasix] 40 mg PO QAM 07/29/21 [History] Insulin Glarg,Human.Rec.Analog [Lantus Solostar] 40 units SQ BEDTIME 07/29/21 [History] Iron Polysaccharides Complex [Ferrex 150] 150 mg PO DAILY 07/29/21 [History] Nitroglycerin [Nitro-Bid 2%] 0.5 inch TOP DAILY PRN 07/29/21 [History] Nystatin/Triamcinolone Crm [Mycolog Crm] 15 gm TOP Q2HR PRN 07/29/21 [History] [place]-3/DHA/Epa/Fish Oil [[place]-3 Fish Oil 1,000 MG Sfgl] 1,000 mg PO QPM 07/29/21 [History] Rivaroxaban [Xarelto] 20 mg PO QAM 07/29/21 [History] Semaglutide [Rybelsus] 7 mg PO 0630 07/29/21 [History] Ciprofloxacin [Ciprofloxacin HCl] 500 mg PO BID #20 tab 08/01/21 [Rx] Forms: ED Department Discharge - Discharge Summary/Plan Comment DC Time >30 min.: No Total # of Minutes for Discharge Time: 20 - General Info Date of Service: 08/01/21 Admission Dx/Problem (Free Text: LLE cellulitis - Patient Data Vitals - Most Recent: Last Vital Signs Temp 97.3 F 08/01/21 06:22 Pulse 75 08/01/21 08:00 Resp 20 08/01/21 06:22 BP 155/71 H 08/01/21 08:00 Pulse Ox 94 L 08/01/21 06:22 Weight - Most Recent: 280 lb 14.4 oz I&O - Last 24 hours: Intake & Output 07/31/21 08/01/21 08/01/21 22:59 06:59 14:59 Intake Total 300 100 Balance 300 100 Lab Results - Last 24 hrs: Laboratory Results - last 24 hr 08/01/21 08/01/21 08/01/21 Range/Units 07:10 07:10 07:42 WBC 5.16 (5.00-10.00) 10^3/uL RBC 4.15 L (4.50-6.00) 10^6/uL Hgb 13.2 (13.0-17.0) g/dL Hct 38.6 L (40.0-52.0) % MCV 93.0 H (82.0-92.0) fL MCH 31.8 H (27.0-31.0) pg MCHC 34.2 (32.0-36.0) g/dL RDW 14.3 (11.5-14.5) % Plt Count 155 (150-400) 10^3/uL MPV 8.6 (7.4-10.4) fL Immature Gran % (Auto) 0.2 (0.0-5.0) % Neut % (Auto) 54.7 (50.0-70.0) % Lymph % (Auto) 28.3 (20.0-40.0) % Stevens % (Auto) 11.0 H (2.0-8.0) % Eos % (Auto) 5.2 H (1.0-3.0) % Baso % (Auto) 0.6 (0.0-1.0) % Neut # (Auto) 2.82 (2.50-7.00) 10^3/uL Lymph # (Auto) 1.46 (1.00-4.00) 10^3/uL Stevens # (Auto) 0.57 (0.10-0.80) 10^3/uL Eos # (Auto) 0.27 (0.10-0.30) 10^3/uL Baso # (Auto) 0.03 (0.00-0.10) 10^3/uL Immature Gran # (Auto) 0.01 (0.00-0.50) 10^3/uL Sodium 141 (136-145) mmol/L Potassium 3.7 (3.5-5.1) mmol/L Chloride 101 (98-107) mmol/L Carbon Dioxide 28.6 (21.0-32.0) mmol/L Anion Gap 15.1 H (5-15) mmol/L BUN 21 H (7-18) mg/dL Creatinine 1.29 H (0.51-1.17) mg/dL Est Cr Clr Drug Dosing 61.95 mL/min Estimated GFR (MDRD) 55 mL/min Glucose 111 (70-140) mg/dL POC Glucose 114 (70-140) mg/dL Calcium 8.5 L (8.7-10.3) mg/dL HEATH Results - Last 24 hrs: Microbiology 07/29/21 12:45 Gram Stain - Final Toe, Left - Left Big Med Orders - Current: Current Medications Acetaminophen (Acetaminophen 500 Mg Tab) 500 mg PO Q4H PRN PRN Reason: Pain/Fever Amitriptyline HCl (Amitriptyline 25 Mg Tab) 25 mg PO QAM [facility] Last Admin: 08/01/21 08:01 Dose: 25 mg Documented by: Atorvastatin Calcium (Atorvastatin 40 Mg Tab) 80 mg PO DAILY [facility] Last Admin: 08/01/21 08:01 Dose: 80 mg Documented by: Carvedilol (Carvedilol 6.25 Mg Tab) 6.25 mg PO BIDMEALS [facility] Last Admin: 08/01/21 08:00 Dose: 6.25 mg Documented by: Clopidogrel Bisulfate (Clopidogrel 75 Mg Tab) 75 mg PO DAILY [facility] Last Admin: 08/01/21 08:01 Dose: 75 mg Documented by: Dextrose/Water (50% Dextrose In Water 50 Ml Syringe) 50 ml IVPUSH ASDIRECTED PRN PRN Reason: Hypoglycemia Finasteride (Finasteride 5 Mg Tab) 5 mg PO DAILY [facility] Last Admin: 08/01/21 08:01 Dose: 5 mg Documented by: Furosemide (Furosemide 40 Mg Tab) 40 mg PO QAM [facility] Last Admin: 08/01/21 08:01 Dose: 40 mg Documented by: Glucagon (Glucagon,Human Recombinant 1 Mg Vial) 1 mg IM ASDIRECTED PRN PRN Reason: Hypoglycemia Hydrochlorothiazide (Hydrochlorothiazide 25 Mg Tab) 25 mg PO DAILY [facility] Last Admin: 08/01/21 08:01 Dose: 25 mg Documented by: Ciprofloxacin/Dextrose 400 mg/ (Premix) 200 mls @ 200 mls/hr IV Q12H [facility] Last Admin: 08/01/21 09:07 Dose: 200 mls/hr Documented by: Sodium Chloride (Normal Saline) 50 mls @ 100 mls/hr IV ASDIRECTED [facility] Last Admin: 07/31/21 22:51 Dose: 100 mls/hr Documented by: Insulin Aspart (Insulin Aspart 100 Units/Ml 3 Ml Pen) 0 unit SUBCUT QIDACANDBED PRN; Protocol PRN Reason: Elevated blood sugar Last Admin: 07/30/21 17:44 Dose: 2 units Documented by: Insulin Glargine (Insulin Glargine,Hum.Rec.Anlog 100 Unit/Ml 3 Ml Pen) 40 unit SUBCUT BEDTIME [facility] Last Admin: 07/31/21 20:45 Dose: 40 units Documented by: Losartan Potassium (Losartan 50 Mg Tab) 100 mg PO DAILY [facility] Last Admin: 08/01/21 08:00 Dose: 100 mg Documented by: Metformin HCl (Metformin 500 Mg Tab) 500 mg PO BIDMEALS [facility] Last Admin: 08/01/21 08:00 Dose: 500 mg Documented by: Nitroglycerin (Nitroglycerin 2% Oint 1 Gm Ud Packet) 0 gm TOP DAILY PRN PRN Reason: Chest Pain Nitroglycerin (Nitroglycerin 0.4 Mg Tab.Sl) 0.4 mg SL ASDIRECTED PRN PRN Reason: Chest Pain Empagliflozin ( Jardiance) 25 Mg Tablet Own Med 0 mg PO QAM [facility] Last Admin: 08/01/21 08:01 Dose: 25 mg Documented by: Non-Formulary Medication (Lactobacillus 3/Fos/Pantethine [Probiotic & Acidophilus]) 1 cap PO DAILY [facility] Semaglutide ( Rybelsus) 7 Mg Tablet Own Med 0 mg PO DAILY@0630 [facility] Last Admin: 08/01/21 05:54 Dose: 7 mg Documented by: Ondansetron HCl (Ondansetron 4 Mg/2 Ml Sdv) 4 mg IV Q4H PRN PRN Reason: Nausea/Vomiting Pantoprazole Sodium (Pantoprazole 40 Mg Tab.Cr) 40 mg PO DAILY@0700 [facility] Last Admin: 08/01/21 06:07 Dose: 40 mg Documented by: Potassium Chloride (Potassium Chloride 10 Meq Tab.Er) 10 meq PO DAILY [facility] Last Admin: 08/01/21 08:00 Dose: 10 meq Documented by: Rivaroxaban (Rivaroxaban 10 Mg Tab) 20 mg PO DAILY [facility] Last Admin: 08/01/21 08:00 Dose: 20 mg Documented by: Tamsulosin HCl (Tamsulosin 0.4 Mg Cap.Er) 0.4 mg PO DAILY [facility] Last Admin: 08/01/21 08:01 Dose: 0.4 mg Documented by: Discontinued Medications Ceftriaxone Sodium (Ceftriaxone 2 Gm Vial) 2 gm IVPUSH Q24H [facility] Last Admin: 07/31/21 17:30 Dose: 2 gm Documented by: Cefazolin Sodium 1 gm/ Sodium (Chloride) 50 mls @ 200 mls/hr IV Q8HR [facility] - Exam General: Reports: Alert, Oriented, Cooperative, No Acute Distress Lungs: Reports: Clear to Auscultation, Normal Respiratory Effort Cardiovascular: Reports: Regular Rate, Regular Rhythm, Murmurs Wound/Incisions: Reports: Other (Redness of the LLE is regressing from the marked margins)
== END 2021-08-01 13:50 | disposition home or self-care (01) | DRG 344 ==
LOC: KA.ED 13:30 → KA.MS 15:03
PROVIDERS: ADMIT Nurse Practitioner Family; ATTEND Internal Medicine
DX: E11.69 Type 2 diabetes mellitus with other specified complication (principal); M86.8X7 Other osteomyelitis, ankle and foot; I25.10 Atherosclerotic heart disease of native coronary artery without angina pectoris; I11.0 Hypertensive heart disease with heart failure; Z20.822 Contact with and (suspected) exposure to COVID-19; I50.32 Chronic diastolic (congestive) heart failure; I35.0 Nonrheumatic aortic (valve) stenosis; G47.33 Obstructive sleep apnea (adult) (pediatric); N40.0 Benign prostatic hyperplasia without lower urinary tract symptoms; E78.5 Hyperlipidemia, unspecified; K22.70 Barrett's esophagus without dysplasia; G47.00 Insomnia, unspecified; Z79.4 Long term (current) use of insulin; Z95.1 Presence of aortocoronary bypass graft; Z79.01 Long term (current) use of anticoagulants; Z86.718 Personal history of other venous thrombosis and embolism; Z86.711 Personal history of pulmonary embolism; I25.2 Old myocardial infarction; Z87.81 Personal history of (healed) traumatic fracture; Z95.5 Presence of coronary angioplasty implant and graft
CPT/HCPCS: 36415; 73620-LT; 80048; 80053; 82947; 83605; 85025; 87070; 87075; 87186; 87205; 99284-25; A9270-GY; J0696; J0744; J1815-GY; U0002

== ENCOUNTER 2021-08-31 12:56 | Emergency (ER) | payer BC, MEDICARE ==
[2021-08-31] MEDS ORDERED: Sodium Chloride 0.9% 10 ML Syringe FLUSH PRN (13:07)
[2021-08-31 14:07] LABS: ANION GAP 9.3 mmol/L (5-15)
[2021-08-31 15:43] VITALS: BP 136/70; PULSE 88
== END 2021-08-31 15:25 | disposition home or self-care (01) ==
LOC: KA.ED 12:56
DX: K21.9 Gastro-esophageal reflux disease without esophagitis (principal); I48.91 Unspecified atrial fibrillation; I25.810 Atherosclerosis of coronary artery bypass graft(s) without angina pectoris; I11.0 Hypertensive heart disease with heart failure; I50.9 Heart failure, unspecified; M19.90 Unspecified osteoarthritis, unspecified site; E11.40 Type 2 diabetes mellitus with diabetic neuropathy, unspecified; E66.9 Obesity, unspecified; Z68.34 Body mass index [BMI] 34.0-34.9, adult; Z88.1 Allergy status to other antibiotic agents; Z79.4 Long term (current) use of insulin; Z79.02 Long term (current) use of antithrombotics/antiplatelets; Z79.01 Long term (current) use of anticoagulants; Z79.899 Other long term (current) drug therapy
CPT/HCPCS: 36415; 71045; 80053; 83880; 84484; 85025; 93005; 93010; 99284; 99285-25

== ENCOUNTER 2023-03-10 22:05 | Emergency (ER) | payer BC ==
[2023-03-10] MEDS ORDERED: Sodium Chloride 0.9% 10 ML Syringe FLUSH PRN (22:24)
[2023-03-10] MEDS ORDERED: Aspirin 81 MG Tab.Chew PO ONE (22:32)
[2023-03-10] MEDS ORDERED: Metoprolol Tartrate 5 MG/5 ML SDV IVPUSH ONE (22:32)
[2023-03-10] MEDS: Nitroglycerin 0.4 MG Tab.SL SL PRN ×2 (22:42→23:20)
[2023-03-10 22:57] LABS: BASOPHILS ABSOLUTE AUTO 0.04 10^3/uL (0.00-0.10); BASOPHILS PERCENT AUTO 0.8 % (0.0-1.0); EOSINOPHILS ABSOLUTE AUTO 0.23 10^3/uL (0.10-0.30); EOSINOPHILS PERCENT AUTO 4.5 % (1.0-3.0); HEMATOCRIT 38.2 % (40.0-52.0); HEMOGLOBIN 12.6 g/dL (13.0-17.0); IMMATURE GRAN ABSOLUTE AUTO 0.01 10^3/uL (0.00-0.50); IMMATURE GRAN PERCENT AUTO 0.2 % (0.0-5.0); LYMPHOCYTES ABSOLUTE AUTO 1.63 10^3/uL (1.00-4.00); LYMPHOCYTES PERCENT AUTO 31.7 % (20.0-40.0); MEAN CORPUSCULAR HEMOGLOBIN 29.6 pg (27.0-31.0); MEAN CORPUSCULAR VOLUME 89.9 fL (82.0-92.0); MEAN PLATELET VOLUME 8.6 fL (7.4-10.4); MONOCYTES ABSOLUTE AUTO 0.47 10^3/uL (0.10-0.80); MONOCYTES PERCENT AUTO 9.1 % (2.0-8.0); NEUTROPHILS ABSOLUTE AUTO 2.77 10^3/uL (2.50-7.00); NEUTROPHILS PERCENT AUTO 53.7 % (50.0-70.0); PLATELET COUNT,PLT 172 10^3/uL (150-400); RED BLOOD CELL COUNT 4.25 10^6/uL (4.50-6.00); WHITE BLOOD CELL COUNT,WBC 5.15 10^3/uL (5.00-10.00)
[2023-03-10] MEDS ORDERED: Carvedilol 6.25 MG Tab PO ONE (23:11)
[2023-03-10 23:14] LABS: ALBUMIN 3.48 g/dL (3.40-5.00); ANION GAP 15.1 mmol/L (5-15); BILIRUBIN TOTAL 0.4 mg/dL (0.2-1.0); CALCIUM 8.4 mg/dL (8.7-10.3); CARBON DIOXIDE,CO2 26.2 mmol/L (21.0-32.0); CREATININE 1.5 mg/dL (0.51-1.17); EST CRCL DRUG DOSING (CG) 51.76 mL/min; POTASSIUM,K 4.3 mmol/L (3.5-5.1)
[2023-03-11] MEDS: Nitroglycerin 0.4 MG Tab.SL SL PRN (04:37)
[2023-03-11] MEDS ORDERED: Losartan 50 MG Tab PO ONE (05:11)
[2023-03-11] MEDS ORDERED: Heparin Sodium 5,000 Units/ML Vial IVPUSH ONE (07:11)
[2023-03-11] MEDS ORDERED: Heparin Sodium/D5W 250 ML IV SCH ×2 (07:15→07:30)
[2023-03-11] MEDS ORDERED: Clopidogrel 75 MG Tab PO ONE (09:19)
[2023-03-11 09:20] VITALS: BP 198/97
[2023-03-11 09:56] VITALS: PULSE 104
== END 2023-03-11 09:41 ==
LOC: KA.ED 22:05
DX: I11.0 Hypertensive heart disease with heart failure (principal); I50.9 Heart failure, unspecified; I25.119 Atherosclerotic heart disease of native coronary artery with unspecified angina pectoris; E11.59 Type 2 diabetes mellitus with other circulatory complications; R77.8 Other specified abnormalities of plasma proteins; I25.9 Chronic ischemic heart disease, unspecified; I48.91 Unspecified atrial fibrillation; E11.40 Type 2 diabetes mellitus with diabetic neuropathy, unspecified; E66.9 Obesity, unspecified; Z68.37 Body mass index [BMI] 37.0-37.9, adult; G47.30 Sleep apnea, unspecified; E78.00 Pure hypercholesterolemia, unspecified; Z95.1 Presence of aortocoronary bypass graft; Z79.01 Long term (current) use of anticoagulants; Z79.4 Long term (current) use of insulin; Z79.84 Long term (current) use of oral hypoglycemic drugs; Z79.899 Other long term (current) drug therapy
CPT/HCPCS: 36415; 71045; 80053; 82947; 83880; 84484; 85025; 85730; 93010; 96365; 96366; 96368; 96375; 96376; 99285; A9270; J1644; J3490; 93005

== ENCOUNTER 2023-05-09 22:42 | Emergency (ER) | payer BC ==
[2023-05-09 22:49] VITALS: BP 156/81; PULSE 97
[2023-05-09] MEDS ORDERED: Diphtheria,Pertussis(Acell),Tetanus Vaccine 0.5 ML Syringe IM ONE (23:46)
== END 2023-05-09 23:56 | disposition home or self-care (01) ==
LOC: KA.ED 22:42
DX: S81.811A Laceration without foreign body, right lower leg, initial encounter (principal); I25.10 Atherosclerotic heart disease of native coronary artery without angina pectoris; E78.00 Pure hypercholesterolemia, unspecified; K21.9 Gastro-esophageal reflux disease without esophagitis; E11.9 Type 2 diabetes mellitus without complications; E66.9 Obesity, unspecified; Z68.35 Body mass index [BMI] 35.0-35.9, adult; Z23 Encounter for immunization; Z88.8 Allergy status to other drugs, medicaments and biological substances; Z79.84 Long term (current) use of oral hypoglycemic drugs; Z79.899 Other long term (current) drug therapy; W26.8XXA Contact with other sharp object(s), not elsewhere classified, initial encounter
CPT/HCPCS: 90471; 90715; 99283-25

== ENCOUNTER 2023-12-30 21:58 | Emergency (ER) | payer BC, MEDICARE ==
[2023-12-30 22:25] VITALS: PULSE 99
[2023-12-30 22:37] LABS: HEMATOCRIT 36.5 % (40.0-52.0); HEMOGLOBIN 12.1 g/dL (13.0-17.0); IMMATURE GRAN ABSOLUTE AUTO 0.01 10^3/uL (0.00-0.50); IMMATURE GRAN PERCENT AUTO 0.1 % (0.0-5.0); LYMPHOCYTES ABSOLUTE AUTO 0.69 10^3/uL (1.00-4.00); LYMPHOCYTES PERCENT AUTO 10.1 % (20.0-40.0); MEAN CORPUSCULAR HEMOGLOBIN 30.2 pg (27.0-31.0); MEAN CORPUSCULAR HGB CONC 33.2 g/dL (32.0-36.0); MONOCYTES ABSOLUTE AUTO 0.29 10^3/uL (0.10-0.80); MONOCYTES PERCENT AUTO 4.3 % (2.0-8.0); NEUTROPHILS ABSOLUTE AUTO 5.83 10^3/uL (2.50-7.00); NEUTROPHILS PERCENT AUTO 85.5 % (50.0-70.0); PLATELET COUNT,PLT 111 10^3/uL (150-400); RED BLOOD CELL COUNT 4.01 10^6/uL (4.50-6.00); RED CELL DISTRIBUTION WIDTH 14.5 % (11.5-14.5); WHITE BLOOD CELL COUNT,WBC 6.82 10^3/uL (5.00-10.00)
[2023-12-30 22:51] LABS: ALANINE AMINOTRANSFERASE,ALT 26 U/L (14-63); ALBUMIN 3.26 g/dL (3.40-5.00); ALKALINE PHOSPHATASE 74 U/L (46-116); ANION GAP 14.6 mmol/L (5-15); ASPARTATE AMNIOTRANSFERASE,AST 21 U/L (15-37); BILIRUBIN TOTAL 0.6 mg/dL (0.2-1.0); BLOOD UREA NITROGEN,BUN 27 mg/dL (7-18); CALCIUM 8.6 mg/dL (8.7-10.3); CARBON DIOXIDE,CO2 28.8 mmol/L (21.0-32.0); CHLORIDE,CL 101 mmol/L (98-107); CREATININE 1.59 mg/dL (0.51-1.17); GLUCOSE RANDOM 225 mg/dL (70-140); POTASSIUM,K 4.4 mmol/L (3.5-5.1); PROTEIN TOTAL,TP 7.3 g/dL (6.4-8.2); SODIUM,NA 140 mmol/L (136-145)
[2023-12-30 22:52] LABS: ESTIMATED GFR 46 mL/min (>=60)
[2023-12-30 22:53] VITALS: BP 158/71
== END 2023-12-30 23:15 | disposition home or self-care (01) ==
LOC: KA.ED 21:58
DX: E11.65 Type 2 diabetes mellitus with hyperglycemia (principal); I11.0 Hypertensive heart disease with heart failure; I50.9 Heart failure, unspecified; I25.10 Atherosclerotic heart disease of native coronary artery without angina pectoris; E78.00 Pure hypercholesterolemia, unspecified; Z88.1 Allergy status to other antibiotic agents; Z79.84 Long term (current) use of oral hypoglycemic drugs; Z79.4 Long term (current) use of insulin; Z79.899 Other long term (current) drug therapy; Z79.02 Long term (current) use of antithrombotics/antiplatelets; Z79.01 Long term (current) use of anticoagulants; Z95.1 Presence of aortocoronary bypass graft
CPT/HCPCS: 36415; 80053; 82947; 85025; 99283; 99284

== ENCOUNTER 2024-12-10 07:57 | Emergency (ER) | payer BC ==
[2024-12-10] MEDS: Cyclobenzaprine 10 MG Tab PO ONE (08:49)
[2024-12-10] MEDS: LORazepam 0.5 MG Tab PO ONE (09:16)
[2024-12-10 10:23] VITALS: BP 132/81; PULSE 88
== END 2024-12-10 10:05 | disposition home or self-care (01) ==
LOC: KA.ED 07:57
DX: M62.830 Muscle spasm of back (principal); I11.0 Hypertensive heart disease with heart failure; I50.9 Heart failure, unspecified; I25.10 Atherosclerotic heart disease of native coronary artery without angina pectoris; Z95.1 Presence of aortocoronary bypass graft; Z88.8 Allergy status to other drugs, medicaments and biological substances; Z79.84 Long term (current) use of oral hypoglycemic drugs; Z79.01 Long term (current) use of anticoagulants; Z79.899 Other long term (current) drug therapy; Z79.4 Long term (current) use of insulin; W10.9XXA Fall (on) (from) unspecified stairs and steps, initial encounter
CPT/HCPCS: 72070; 72080; 99283; 99284; A9270-GY